=== PATIENT | female | born 1955 | race Caucasian/White ===

== ENCOUNTER 2020-11-21 08:41 | Outpatient (CLI) | payer OTHER, SELFPAY ==
[2020-11-21 09:56] LABS: Basophils Percent Auto 0.7 % (0.2-1.2); Eosinophils Absolute Auto 0.1 K/mm3 (0-0.3); Eosinophils Percent Auto 2.3 % (0-4.4); Hematocrit 38.4 % (37.0-47.0); Hemoglobin 12.4 g/dL (12.0-15.0); Immature Granulocyte Absolute 0.02 K/mm3 (0.00-0.031); Immature Granulocyte Percent A 0.4 % (0-0.5); Lymphocytes Absolute Auto 1.12 K/mm3 (0.9-3.2); Lymphocytes Percent Auto 19.8 % (18.3-44.2); Mean Corpuscular HGB Conc 32.3 g/dl (32-36); Mean Corpuscular Hemoglobin 33.2 pg (26-34); Mean Corpuscular Volume 102.9 fl (80-100); Mean Platelet Volume 10.4 fl (7.4-10.4); Monocytes Absolute Auto 0.5 K/mm3 (0.1-0.6); Monocytes Percent Auto 9.2 % (2.6-8.5); Neutrophils Absolute Auto 3.8 K/mm3 (1.3-6.7); Neutrophils Percent Auto 67.6 % (45.5-73.1); Platelet Count Result 216 k/mm3 (150-375); Red Blood Count 3.73 M/mm3 (4.2-5.4); Red Cell Distribution Width 13.2 % (11.5-14.5); White Blood Count 5.7 K/mm3 (4.5-10.0)
[2020-11-21 10:08] LABS: Hemoglobin A1C 6.6 % (<5.7)
[2020-11-21 10:20] LABS: Creatinine Urine 151.4 mg/dL
[2020-11-21 10:24] LABS: MALB Creatinine Ratio 16.4 mg/g (0-30); Microalbumin Urine Random 24.8 mg/L (0-16.7)
[2020-11-21 10:28] LABS: Alanine Aminotransferase 16 U/L (4-35); Albumin Level 4.1 g/dL (3.5-5.1); Alkaline Phosphatase 94 U/L (38-126); Anion Gap 7 mmol/L (8-16); Aspartate Amino Transferase 24 U/L (14-36); Bilirubin,Total 0.7 mg/dL (0.2-1.3); Blood Urea Nitrogen 15 mg/dL (7-17); Calcium 9.3 mg/dL (8.4-10.2); Carbon Dioxide 27 mmol/L (22-30); Chloride 102 mmol/L (98-107); Cholesterol 184 mg/dL (0-200); Estimated Glomerular Filt Rate > 60; Glucose 134 mg/dL (65-110); HDL Direct 50 mg/dL; Potassium 4.5 mmol/L (3.4-5.0); Sodium 136 mmol/L (137-145); Triglycerides 161 mg/dL (<150)
[2020-11-21 10:38] LABS: LDL Cholesterol Direct 98 mg/dL
[2020-11-21 10:57] LABS: Thyroid Stimulating Hormone 0.734 uIU/mL (0.465-4.680)
[2020-11-21 10:59] LABS: Immature Reticulocyte Fraction 14.7 % (3.0-15.9); Reticulocyte Hemoglobin Conten 38.8 pg (28.2-35.7); Reticulocyte Percent 1.97 % (0.7-4.3); Reticulocytes Absolute 0.07 B/L (32.2-175.7)
[2020-11-21 11:11] LABS: Thyroid Stimulating Hormone Reflex 0.757 uIU/mL (0.465-4.68)
[2020-11-21 15:37] LABS: Folic Acid 9.8 ng/mL (2.76->20)
[2020-11-26 20:48] LABS: Vitamin D 1,25 (OH)2 Total 45 pg/mL (18-72); Vitamin D2 1,25 (OH)2 <8 pg/mL; Vitamin D3 1,25 (OH)2 45 pg/mL
== END 2020-11-21 08:42 | disposition home or self-care (01) ==
PROVIDERS: PCP Family Medicine; Referring Provider Psychiatry & Neurology Psychiatry; Visit Provider Family Medicine
DX: R53.82 Chronic fatigue, unspecified (principal); F32.9 Major depressive disorder, single episode, unspecified; F41.0 Panic disorder [episodic paroxysmal anxiety]; E78.2 Mixed hyperlipidemia; E11.9 Type 2 diabetes mellitus without complications; R79.89 Other specified abnormal findings of blood chemistry; F51.04 Psychophysiologic insomnia; G25.81 Restless legs syndrome
CPT/HCPCS: 36415; 80053; 80061; 82043; 82607; 82652; 82746; 83036; 84443; 85025; 85046

== ENCOUNTER 2020-12-15 15:20 | Emergency (ER) | payer OTHER, SELFPAY ==
[2020-12-15 15:27] VITALS: BP 162/98; PULSE 108; RESP 18; TEMP 36.4; O2SAT 97
--- NOTE | 2020-12-15 16:16 | PC.NURSE ---
Pt states she is leaving and I dont want to waste anyones time. Pt told that is not the case and that she is welcome to stay and be seen by the EDP. Pt states she has a psychiatrist appointment tomorrow and will see and eye doctor instead. Pt ambulatory out of ER.
== END 2020-12-16 04:25 | disposition left against medical advice (07) ==
DX: Z94.7 Corneal transplant status (principal)
CPT/HCPCS: 99199

== ENCOUNTER 2021-01-06 12:00 | Outpatient (CLI) | payer OTHER, SELFPAY ==
[2021-01-06 13:06] LABS: Alanine Aminotransferase 15 U/L (4-35); Albumin Level 4.7 g/dL (3.5-5.1); Alkaline Phosphatase 82 U/L (38-126); Anion Gap 11 mmol/L (8-16); Aspartate Amino Transferase 23 U/L (14-36); Bilirubin,Total 0.7 mg/dL (0.2-1.3); Blood Urea Nitrogen 15 mg/dL (7-17); Calcium 9.2 mg/dL (8.4-10.2); Carbon Dioxide 24 mmol/L (22-30); Chloride 106 mmol/L (98-107); Estimated Glomerular Filt Rate 55; Glucose 178 mg/dL (65-110); Potassium 4.4 mmol/L (3.4-5.0); Sodium 141 mmol/L (137-145)
[2021-01-06 14:13] LABS: Hemoglobin A1C 6.6 % (<5.7)
== END 2021-01-06 12:01 | disposition home or self-care (01) ==
DX: E11.9 Type 2 diabetes mellitus without complications (principal)
CPT/HCPCS: 36415; 80053; 83036

== ENCOUNTER 2021-01-07 12:06 | Outpatient (CLI) | payer OTHER, SELFPAY ==
[2021-01-07 13:39] LABS: Creatinine Urine 151.6 mg/dL
[2021-01-07 13:44] LABS: MALB Creatinine Ratio 5.7 mg/g (0-30); Microalbumin Urine Random 8.7 mg/L (0-16.7)
== END 2021-01-07 12:07 | disposition home or self-care (01) ==
LOC: ANHLAB 12:08
DX: E11.9 Type 2 diabetes mellitus without complications (principal)
CPT/HCPCS: 82043

== ENCOUNTER 2021-02-23 06:12 | Emergency (ER) | payer OTHER, SELFPAY ==
[2021-02-23] VITALS (12 sets, daily range): BP systolic 131–148; BP diastolic 70–89; PULSE 92–105; RESP 15–24; TEMP 36.7; O2SAT 93–100
--- NOTE | ~2021-02-23 | XR_ITS ---
EXAMINATION: XR chest 1V portable DATE: 02/23/2021 07:40 INDICATION: Shortness of breath, wheezing and sense of panic. TECHNIQUE: frontal view of the chest was obtained. COMPARISON: None FINDINGS: The lungs are clear with no focal airspace opacities, pulmonary edema, pleural effusion or pneumothor ax. Eventration along the left and right sides of the diaphragm. The cardiomediastinal silhouette is normal. IMPRESSION: 1. No acute cardiopulmonary disease. Reviewed, dictated and finalized at location A. [employer]
--- NOTE | 2021-02-23 07:18 | PC.NURSE ---
Report to ODESSA Torres, to continue care.
--- NOTE | 2021-02-23 07:35 | PC.NURSE ---
Patient refusing ABG at this time. Patient states she needs the Ativan prior to any blood draw.
--- NOTE | 2021-02-23 07:37 | ED.ANXIETY ---
HPI - Anxiety General Chief Complaint: Anxiety Stated Complaint: sob - feels like an asthma attack Time Seen by Provider: 02/23/21 07:26 Source: patient, EMS and RN notes reviewed History of Present Illness HPI narrative: Patient presents to the ED by ambulance because of anxiety, lack of sleep, restlessness started over the last few days. Patient lives alone, tremendous amount of stress lately. Patient denies any suicidal or homicidal ideation, patient denies any chest pain, headache, back pain or abdominal pain. Patient feeling shortness of breath, does not get better on albuterol treatment. Related Data Home Medications Medication Instructions Recorded Confirmed acetaminophen 650 mg 650 mg PO Q12H 11/06/20 11/06/20 tablet,extended release brimonidine 0.1 % eye drops 1 drp EACH EYE Q8H 11/06/20 11/06/20 metoprolol tartrate 25 mg tablet 25 mg PO DAILY 11/06/20 11/06/20 mirtazapine 15 mg tablet 15 mg PO DAILY 11/06/20 11/06/20 netarsudil 0.02 % eye drops 1 drp EACH EYE QPM 11/06/20 11/06/20 prednisolone acetate 1 % eye 1 drp EACH EYE Q12H 11/06/20 11/06/20 drops,suspension sodium chloride 2 % eye drops 1 drp EACH EYE DAILY 11/06/20 11/06/20 vitamin B complex 1 tablet PO DAILY 11/06/20 11/06/20 buspirone mg 02/23/21 desvenlafaxine succinate mg PO 02/23/21 Allergies Allergy/AdvReac Type Severity Reaction Status Date / Time bupropion [From Wellbutrin] Allergy Intermediate seizures Verified 02/23/21 06:36 esomeprazole [From Nexium] Allergy Intermediate hives on Verified 02/23/21 06:36 abdominal area Penicillins Allergy Intermediate itchy Verified 02/23/21 06:36 hands and feet Sulfa (Sulfonamide Allergy Intermediate swollen Verified 02/23/21 06:36 Antibiotics) lips Corticosteroids AdvReac Intermediate manic Verified 02/23/21 07:29 (Glucocorticoids) Review of Systems Review of Systems: CONSTITUTIONAL: Denies fever, chills, or sweats. EYES: Denies visual changes, redness, or discharge. ENT: Denies rhinorrhea, congestion, sore throat, or otalgia. CARDIOVASCULAR: Denies chest pain, palpitations, or edema. RESPIRATORY: Denies cough or dyspnea. GASTROINTESTINAL: Denies abdominal pain, nausea, vomiting, or diarrhea. GENITOURINARY: Denies dysuria or hematuria. SKIN: Denies rash or itching. MUSCULOSKELETAL: Denies back pain, joint pain, or myalgia. NEUROLOGIC: Denies headache, numbness, or weakness. PSYCHIATRIC: Denies anxiety or depression. [facility] Past Medical History Medical History Asthma Atrial fibrillation with controlled ventricular rate Benign essential HTN Chronic anticoagulation Chronic fatigue Chronic insomnia Diabetes mellitus Morbid obesity Panic anxiety syndrome Family History Family History Other Diabetes mellitus Heart disease Hypertension Social History Social History Social History: Smoking status: Never smoker Second hand tobacco smoke exposure: No Alcohol intake: never Substance use: never Substance use type: does not use and prescription drug Gender identity (if verbalized by the patient): Female Exam Narrative: General appearance: Well-developed, well-nourished, anxious, restless, in tears Skin: Normal color Head: Normocephalic, nontraumatic Eyes: Clear conjunctiva ENT: Oropharynx normal, ears normal, nose normal Neck: Supple, nontender Chest and respiratory: Airway patent, no respiratory distress, no accessory muscle use Heart: Regular rate/rhythm Abdomen: Soft, nontender, no organomegaly, quiet bowel sounds Vascular: Normal peripheral pulses, normal capillary refill. Musculoskeletal: Normal range of motion, nontender back Neurologic: Alert and oriented ?3, [employer] is normal as tested, no gross motor deficit
[2021-02-23] MEDS: LORazepam (*CRX) 0.5 MG TABLET 1 MG PO (07:43)
--- NOTE | 2021-02-23 07:48 | PCRCNOTE ---
pt refused to get ABG drawn
[2021-02-23 08:04] LABS: Basophils Percent Auto 0.4 % (0.2-1.2); Eosinophils Absolute Auto 0.2 K/mm3 (0-0.3); Eosinophils Percent Auto 2.1 % (0-4.4); Hematocrit 36.5 % (37.0-47.0); Hemoglobin 12.2 g/dL (12.0-15.0); Immature Granulocyte Absolute 0.04 K/mm3 (0.00-0.031); Immature Granulocyte Percent A 0.6 % (0-0.5); Lymphocytes Absolute Auto 1.21 K/mm3 (0.9-3.2); Lymphocytes Percent Auto 16.7 % (18.3-44.2); Mean Corpuscular HGB Conc 33.4 g/dl (32-36); Mean Corpuscular Hemoglobin 33.7 pg (26-34); Mean Corpuscular Volume 100.8 fl (80-100); Mean Platelet Volume 10.2 fl (7.4-10.4); Monocytes Absolute Auto 0.6 K/mm3 (0.1-0.6); Monocytes Percent Auto 8.4 % (2.6-8.5); Neutrophils Absolute Auto 5.2 K/mm3 (1.3-6.7); Neutrophils Percent Auto 71.8 % (45.5-73.1); Platelet Count Result 210 k/mm3 (150-375); Red Blood Count 3.62 M/mm3 (4.2-5.4); Red Cell Distribution Width 12.5 % (11.5-14.5); White Blood Count 7.3 K/mm3 (4.5-10.0)
[2021-02-23 08:16] LABS: Alanine Aminotransferase 16 U/L (4-35); Albumin Level 4.3 g/dL (3.5-5.1); Alkaline Phosphatase 101 U/L (38-126); Anion Gap 7 mmol/L (8-16); Aspartate Amino Transferase 22 U/L (14-36); Bilirubin,Total 0.6 mg/dL (0.2-1.3); Blood Urea Nitrogen 12 mg/dL (7-17); Calcium 9.8 mg/dL (8.4-10.2); Carbon Dioxide 27 mmol/L (22-30); Chloride 104 mmol/L (98-107); Estimated CRCL calculation 82 ml/min; Estimated Glomerular Filt Rate > 60; Glucose 148 mg/dL (65-110); Potassium 4.3 mmol/L (3.4-5.0); Sodium 138 mmol/L (137-145)
== END 2021-02-23 09:26 | disposition home or self-care (01) ==
PROVIDERS: Emergency Provider Emergency Medicine
DX: F41.0 Panic disorder [episodic paroxysmal anxiety] (principal); J45.909 Unspecified asthma, uncomplicated; I48.91 Unspecified atrial fibrillation; I10 Essential (primary) hypertension; R53.82 Chronic fatigue, unspecified; F51.04 Psychophysiologic insomnia; E11.9 Type 2 diabetes mellitus without complications; E66.01 Morbid (severe) obesity due to excess calories; Z68.41 Body mass index [BMI] 40.0-44.9, adult; Z79.01 Long term (current) use of anticoagulants
CPT/HCPCS: 36415; 36600; 71045; 80053; 85025; 99283; A9270

== ENCOUNTER 2021-03-15 09:20 | Emergency (ER) | payer OTHER, SELFPAY ==
[2021-03-15] VITALS (20 sets, daily range): BP systolic 105–187; BP diastolic 56–110; PULSE 84–101; RESP 13–25; TEMP 36.2–36.4; O2SAT 83–100
--- NOTE | 2021-03-15 11:17 | PC.NURSE ---
No answer when called for triage.
--- NOTE | 2021-03-15 15:02 | ED.GENADULT ---
HPI - General Adult General Chief complaint: Anxiety Stated complaint: anxiety/mood swings/refill Time Seen by Provider: 03/15/21 12:51 Source: patient Mode of arrival: ambulatory Limitations: no limitations History of Present Illness HPI narrative: Patient presents for evaluation of anxiety, depression, and temper tantrums . She indicates she moved to [facility] back in September of this year after her son relocated here. She states she was initially feeling quite well when she moved to the area. She established care with Dr Hunt and started doing TMS therapy. She states she was told she needed to discontinue her cymbalta which she did. She indicates that she has not done TMS for about one month. She was placed on pristiq. She states that caused chest pain so she discontinued its use about 4-5 days ago. She would like to restart cymbalta and is wondering whether it is safe to do so. It did help with her mood and also decreased pain she was experiencing in her knees. She reports getting angry when her phone does not work. She lives at home alone. She denies SI, HI, AH, VH. She states she is not speaking with Dr Hunt because he lectured her about writing poor reviews on his website. She thinks that the staff at his office are rude. She is also concerned that she is getting ready to run out of her buspar. Related Data Home Medications Medication Instructions Recorded Confirmed acetaminophen 650 mg 650 mg PO Q12H 11/06/20 11/06/20 tablet,extended release brimonidine 0.1 % eye drops 1 drp EACH EYE Q8H 11/06/20 11/06/20 metoprolol tartrate 25 mg tablet 25 mg PO DAILY 11/06/20 11/06/20 mirtazapine 15 mg tablet 15 mg PO DAILY 11/06/20 11/06/20 netarsudil 0.02 % eye drops 1 drp EACH EYE QPM 11/06/20 11/06/20 prednisolone acetate 1 % eye 1 drp EACH EYE Q12H 11/06/20 11/06/20 drops,suspension sodium chloride 2 % eye drops 1 drp EACH EYE DAILY 11/06/20 11/06/20 vitamin B complex 1 tablet PO DAILY 11/06/20 11/06/20 buspirone mg 02/23/21 desvenlafaxine succinate mg PO 02/23/21 Allergies Allergy/AdvReac Type Severity Reaction Status Date / Time bupropion [From Wellbutrin] Allergy Intermediate seizures Verified 03/15/21 13:03 esomeprazole [From Nexium] Allergy Intermediate hives on Verified 03/15/21 13:03 abdominal area Penicillins Allergy Intermediate itchy Verified 03/15/21 13:03 hands and feet Sulfa (Sulfonamide Allergy Intermediate swollen Verified 03/15/21 13:03 Antibiotics) lips Corticosteroids AdvReac Intermediate manic Verified 03/15/21 13:03 (Glucocorticoids) alfalfa AdvReac Vomiting Verified 03/15/21 13:03 Review of Systems Review of Systems: CONSTITUTIONAL: Denies fever, chills, or sweats. EYES: Denies visual changes, redness, or discharge. ENT: Denies rhinorrhea, congestion, sore throat, or otalgia. CARDIOVASCULAR: Denies chest pain, palpitations, or edema. RESPIRATORY: Denies cough or dyspnea. GASTROINTESTINAL: Denies abdominal pain, nausea, vomiting, or diarrhea. GENITOURINARY: Denies dysuria or hematuria. SKIN: Denies rash or itching. MUSCULOSKELETAL: Reports chronic bilateral knee pain. Denies back pain or myalgia. NEUROLOGIC: Denies headache, numbness, dizziness, or weakness. PSYCHIATRIC: Reports anxiety, depression, temper tantrums . Denies SI, HI, AH, VH [facility] Past Medical History Medical History (Updated 03/15/21 @ 16:04 by Alejo Freeman, RUKHSANA, ) Asthma Atrial fibrillation with controlled ventricular rate Benign essential HTN Chronic anticoagulation Chronic fatigue Chronic insomnia Diabetes mellitus Morbid obesity Panic anxiety syndrome Surgical History Surgical History No pertinent past surgical history Family History Family History Other Diabetes mellitus Heart disease Hypertension Social History Social History (Review
== END 2021-03-15 16:23 | disposition home or self-care (01) ==
PROVIDERS: Emergency Provider Nurse Practitioner
DX: F41.9 Anxiety disorder, unspecified (principal); J45.909 Unspecified asthma, uncomplicated; I48.91 Unspecified atrial fibrillation; R53.82 Chronic fatigue, unspecified; E11.9 Type 2 diabetes mellitus without complications; E66.01 Morbid (severe) obesity due to excess calories; Z68.41 Body mass index [BMI] 40.0-44.9, adult; Z79.01 Long term (current) use of anticoagulants
CPT/HCPCS: 99281

== ENCOUNTER 2021-03-17 09:52 | Emergency (ER) | payer OTHER, SELFPAY ==
[2021-03-17 10:05] VITALS: BP 134/68; PULSE 97; RESP 18; TEMP 36.7; O2SAT 99
--- NOTE | 2021-03-17 10:28 | ED.GENADULT ---
HPI - General Adult General Chief complaint: Skin/Abscess/Foreign Body Stated complaint: pos skin abcess Source: patient Mode of arrival: ambulatory Limitations: no limitations History of Present Illness HPI narrative: Patient is a 65-year-old female who presents to the [facility] via POV for evaluation of a skin problem located on right pubis that she noticed last night. She reports the area is swollen, tender, erythematous, fluctuant, and draining a small amount of bloody matter . Denies taking or using OTC meds. Nothing improves symptoms. Tenderness increases with touch and pressure. She states she noticed it increasing in size prompting today's visit. Related Data Home Medications Medication Instructions Recorded Confirmed acetaminophen 650 mg 650 mg PO Q12H 11/06/20 11/06/20 tablet,extended release brimonidine 0.1 % eye drops 1 drp EACH EYE Q8H 11/06/20 11/06/20 metoprolol tartrate 25 mg tablet 25 mg PO DAILY 11/06/20 11/06/20 mirtazapine 15 mg tablet 15 mg PO DAILY 11/06/20 11/06/20 netarsudil 0.02 % eye drops 1 drp EACH EYE QPM 11/06/20 11/06/20 prednisolone acetate 1 % eye 1 drp EACH EYE Q12H 11/06/20 11/06/20 drops,suspension sodium chloride 2 % eye drops 1 drp EACH EYE DAILY 11/06/20 11/06/20 vitamin B complex 1 tablet PO DAILY 11/06/20 11/06/20 buspirone mg 02/23/21 desvenlafaxine succinate mg PO 02/23/21 Allergies Allergy/AdvReac Type Severity Reaction Status Date / Time bupropion [From Wellbutrin] Allergy Intermediate seizures Verified 03/17/21 10:19 esomeprazole [From Nexium] Allergy Intermediate hives on Verified 03/17/21 10:19 abdominal area Penicillins Allergy Intermediate itchy Verified 03/17/21 10:19 hands and feet Sulfa (Sulfonamide Allergy Intermediate swollen Verified 03/17/21 10:19 Antibiotics) lips Corticosteroids AdvReac Intermediate manic Verified 03/17/21 10:19 (Glucocorticoids) alfalfa AdvReac Vomiting Verified 03/17/21 10:19 Review of Systems Review of Systems: Denies injury. Pertinent negatives fever, chills, sweats, malaise, poor p.o. intake, change in appetite, headache, LOC, dizziness, streaking, drainage, numbness, tingling, loss of sensation, foreign body sensation, deformity, sob, chest pain, and heart palpitations/murmurs. [facility], [facility] Past Medical History Medical History Asthma Atrial fibrillation with controlled ventricular rate Benign essential HTN Chronic anticoagulation Chronic fatigue Chronic insomnia Diabetes mellitus Morbid obesity Panic anxiety syndrome Surgical History Surgical History No pertinent past surgical history Family History Family History Other Diabetes mellitus Heart disease Hypertension Social History Social History Social History: Smoking status: Never smoker Second hand tobacco smoke exposure: No Alcohol intake: never Substance use: never Substance use type: does not use Gender identity (if verbalized by the patient): Female Sexual Orientation (if Verbalized by the Patient): Straight or Heterosexual Spiritual care concerns: No Comments I have reviewed and agree with the patient's past medical, surgical, social, and family hx as documented by the RN. There is no relevant family history pertinent to the presenting complaint. Exam Narrative: GENERAL: Well-appearing, well-nourished, and in no acute distress. HEAD: Normocephalic, atraumatic. No facial swelling appreciated. EYES: PERRLA and EOMI. No evidence of erythema, swelling, or drainage. ENT: Nares clear, no rhinorrhea or epistaxis.Mucous membranes moist and pink. Uvula is midline without erythema and swelling. No evidence of obstruction, petechial rash, cobblestoning, lesions, ulcers
== END 2021-03-17 10:45 | disposition home or self-care (01) ==
PROVIDERS: Emergency Provider Nurse Practitioner Family
DX: L03.818 Cellulitis of other sites (principal); J45.909 Unspecified asthma, uncomplicated; I48.91 Unspecified atrial fibrillation; I10 Essential (primary) hypertension; Z79.01 Long term (current) use of anticoagulants; E11.9 Type 2 diabetes mellitus without complications; E66.01 Morbid (severe) obesity due to excess calories; Z68.41 Body mass index [BMI] 40.0-44.9, adult
CPT/HCPCS: 99213; G0463

== ENCOUNTER 2021-03-23 11:23 | Emergency (ER) | payer OTHER, SELFPAY ==
[2021-03-23 11:27] VITALS: BP 165/104; PULSE 89; RESP 18; TEMP 37.1; O2SAT 98
--- NOTE | 2021-03-23 13:18 | PC.NURSE ---
Pt called out stating she was unable to get up out of her chair, and needed to use the RR. RN to pt's room to help. Pt was able to get up with minimal assistance from RN and ambulated with her walker independently to RR. Did not need any additional assistance in the RR, and ambulated back to room with her walker. Pt aware of plan for discharge with Rx and referral to ortho. Son remains with patient.
--- NOTE | 2021-03-23 13:50 | ED.GENADULT ---
HPI - General Adult General Chief complaint: Weakness Stated complaint: weakness Time Seen by Provider: 03/23/21 11:56 Source: patient Mode of arrival: ambulatory Limitations: no limitations History of Present Illness HPI narrative: Patient is a 65-year-old female with history of extensive osteoarthritis in her knees presented with chief complaint of acute exacerbation of her chronic knee pain after driving for prolonged period of time. Patient denies pain in the calf or in the thigh. Patient presents emergency department wanting a steroid injection into the knee to assist with ambulation. Patient reports that she has severe pain in the right knee upon standing and trying to ambulate. Patient reports the pain is causing her to feel unsteady. She reports she uses a Rollator for ambulation support. Related Data Home Medications Medication Instructions Recorded Confirmed acetaminophen 650 mg 650 mg PO Q12H 11/06/20 11/06/20 tablet,extended release brimonidine 0.1 % eye drops 1 drp EACH EYE Q8H 11/06/20 11/06/20 metoprolol tartrate 25 mg tablet 25 mg PO DAILY 11/06/20 11/06/20 mirtazapine 15 mg tablet 15 mg PO DAILY 11/06/20 11/06/20 netarsudil 0.02 % eye drops 1 drp EACH EYE QPM 11/06/20 11/06/20 prednisolone acetate 1 % eye 1 drp EACH EYE Q12H 11/06/20 11/06/20 drops,suspension sodium chloride 2 % eye drops 1 drp EACH EYE DAILY 11/06/20 11/06/20 vitamin B complex 1 tablet PO DAILY 11/06/20 11/06/20 buspirone mg 02/23/21 desvenlafaxine succinate mg PO 02/23/21 Allergies Allergy/AdvReac Type Severity Reaction Status Date / Time bupropion [From Wellbutrin] Allergy Intermediate seizures Verified 03/17/21 10:19 esomeprazole [From Nexium] Allergy Intermediate hives on Verified 03/17/21 10:19 abdominal area Penicillins Allergy Intermediate itchy Verified 03/17/21 10:19 hands and feet Sulfa (Sulfonamide Allergy Intermediate swollen Verified 03/17/21 10:19 Antibiotics) lips Corticosteroids AdvReac Intermediate manic Verified 03/17/21 10:19 (Glucocorticoids) alfalfa AdvReac Vomiting Verified 12/21/21 10:19 Review of Systems Review of Systems: CONSTITUTIONAL: Denies fever, chills, or sweats. EYES: Denies visual changes, redness, or discharge. ENT: Denies rhinorrhea, congestion, sore throat, or otalgia. CARDIOVASCULAR: Denies chest pain, palpitations, or edema. RESPIRATORY: Denies cough or dyspnea. GASTROINTESTINAL: Denies abdominal pain, nausea, vomiting, or diarrhea. GENITOURINARY: Denies dysuria or hematuria. SKIN: Denies rash or itching. MUSCULOSKELETAL: Reports right knee pain denies back pain, joint pain, or myalgia. NEUROLOGIC: Denies headache, numbness, dizziness, or weakness. PSYCHIATRIC: Denies anxiety or depression. [facility] Past Medical History Medical History Asthma Atrial fibrillation with controlled ventricular rate Benign essential HTN Chronic anticoagulation Chronic fatigue Chronic insomnia Diabetes mellitus Morbid obesity Panic anxiety syndrome Surgical History Surgical History No pertinent past surgical history Family History Family History Other Diabetes mellitus Heart disease Hypertension Social History Social History Social History: Smoking status: Never smoker Second hand tobacco smoke exposure: No Alcohol intake: never Substance use: never Substance use type: does not use Gender identity (if verbalized by the patient): Female Sexual Orientation (if Verbalized by the Patient): Straight or Heterosexual Spiritual care concerns: No Exam Narrative: GENERAL: Well-appearing, well-nourished. Morbidly obese and tearful. HEAD: Normocephalic, atraumatic. EYES: PERRLA and EOMI. EXTREMITIES: No erythem
== END 2021-03-23 14:18 | disposition home or self-care (01) ==
PROVIDERS: Emergency Provider Emergency Medicine
DX: M25.561 Pain in right knee (principal); R53.1 Weakness; M17.0 Bilateral primary osteoarthritis of knee; I48.91 Unspecified atrial fibrillation; I10 Essential (primary) hypertension; E11.9 Type 2 diabetes mellitus without complications; J45.909 Unspecified asthma, uncomplicated; F41.8 Other specified anxiety disorders; E66.01 Morbid (severe) obesity due to excess calories; Z68.41 Body mass index [BMI] 40.0-44.9, adult; Z79.01 Long term (current) use of anticoagulants
CPT/HCPCS: 99283

== ENCOUNTER 2021-04-09 09:57 | Emergency (ER) | payer OTHER, SELFPAY ==
[2021-04-09 10:09] VITALS: BP 140/100; PULSE 104; RESP 20; TEMP 36.7; O2SAT 100
--- NOTE | 2021-04-09 10:26 | ED.PSYCH ---
HPI - Psych General Chief Complaint: Psychiatric Symptoms Stated Complaint: depression, SI Time Seen by Provider: 04/09/21 10:08 Source: patient Mode of arrival: EMS Limitations: no limitations History of Present Illness HPI Narrative: Patient is a 65-year-old female here because she ran out of her pain medication and anxiety medication, now she is having hard time sleeping due to pain, feeling depressed and anxious, admits to punching her arms because she states that she gets mad at herself but denies any suicidal thoughts, that's against my nondenominational and I do not want to go to hell . Patient states that she has a history of arthritis causing constant bilateral lower extremity pain. Patient states that she takes hydrocodone for her pain but ran out a week ago. Patient denies any homicidal ideations. Patient also states that she is close to running out of her other psych meds, venlafaxine, aripiprazole, and clonazepam. Patient states that she fired her psychiatrist 2 weeks ago because he accused her of being dramatic and lying. Related Data Home Medications Medication Instructions Recorded Confirmed acetaminophen 650 mg 650 mg PO Q12H 11/06/20 11/06/20 tablet,extended release brimonidine 0.1 % eye drops 1 drp EACH EYE Q8H 11/06/20 11/06/20 metoprolol tartrate 25 mg tablet 25 mg PO DAILY 11/06/20 11/06/20 mirtazapine 15 mg tablet 15 mg PO DAILY 11/06/20 11/06/20 netarsudil 0.02 % eye drops 1 drp EACH EYE QPM 11/06/20 11/06/20 prednisolone acetate 1 % eye 1 drp EACH EYE Q12H 11/06/20 11/06/20 drops,suspension sodium chloride 2 % eye drops 1 drp EACH EYE DAILY 11/06/20 11/06/20 vitamin B complex 1 tablet PO DAILY 11/06/20 11/06/20 buspirone mg 02/23/21 desvenlafaxine succinate mg PO 02/23/21 Allergies Allergy/AdvReac Type Severity Reaction Status Date / Time bupropion [From Wellbutrin] Allergy Intermediate seizures Verified 04/09/21 10:14 esomeprazole [From Nexium] Allergy Intermediate hives on Verified 04/09/21 10:14 abdominal area Penicillins Allergy Intermediate itchy Verified 04/09/21 10:14 hands and feet Sulfa (Sulfonamide Allergy Intermediate swollen Verified 04/09/21 10:14 Antibiotics) lips Corticosteroids AdvReac Intermediate manic Verified 04/09/21 10:14 (Glucocorticoids) alfalfa AdvReac Vomiting Verified 04/09/21 10:14 Review of Systems Review of Systems: All systems reviewed & are unremarkable except as noted in HPI and below Constitutional: Constitutional: Denies body ache(s), Denies chills, Denies excessive sweating, Denies fatigue, Denies fever(s), Denies headache(s), Denies lethargy, Denies malaise, Denies weakness and Denies weight loss Eyes: Eyes: Denies blurry vision, Denies change in vision and Denies loss of vision ENT: Denies dizziness, Denies ear discharge, Denies headache(s), Denies lip swelling, Denies epistaxis, Denies nasal congestion, Denies neck pain, Denies throat swelling and Denies tongue swelling Cardiovascular: Cardiovascular: Denies chest pain, Denies chest pain at rest, Denies chest pain with activity, Denies diaphoresis, Denies rapid heart rate, Denies edema, Denies irregular heart rhythm, Denies lightheadedness, Denies palpitations, Denies dyspnea and Denies dyspnea on exertion Respiratory: Respiratory: Denies chest congestion, Denies cough, Denies hemoptysis, Denies dyspnea and Denies dyspnea on exertion Gastrointestinal: Gastrointestinal: Denies abdominal pain, Denies melena, Denies hematochezia, Denies diarrhea, Denies nausea, Denies vomiting and Denies hematemesis Musculoskeletal: Musculoskeletal: Denies abnormal gait, Denies deformity, Denies joint swelling, Denies limited range of motion, Denies neck pain and Denies numbness Neurologic: Denies Abnormal speech present, Denies abnormal gait, Denies confusion, Denies dizziness, Denies headache(s), Denies focal weakness, Denies loss of vision, Denies numbness, Denies Other visual disturbances, Denies Sen
--- NOTE | 2021-04-09 10:37 | PC.NURSE ---
Pt. does not have a sitter at bedside due to pt. being LOW RISK on [place] Suicide Risk Assessment. Charge Nurse Yvrose made aware and agrees w/ decision.
[2021-04-09 10:40] LABS: Basophils Absolute Auto 0.1 K/mm3 (0.0-0.1); Basophils Percent Auto 0.8 % (0.2-1.2); Eosinophils Percent Auto 0.5 % (0-4.4); Hematocrit 43.5 % (37.0-47.0); Hemoglobin 14.5 g/dL (12.0-15.0); Immature Granulocyte Absolute 0.02 K/mm3 (0.00-0.031); Immature Granulocyte Percent A 0.3 % (0-0.5); Lymphocytes Absolute Auto 1.29 K/mm3 (0.9-3.2); Lymphocytes Percent Auto 17.1 % (18.3-44.2); Mean Corpuscular HGB Conc 33.3 g/dl (32-36); Mean Corpuscular Hemoglobin 33.3 pg (26-34); Mean Platelet Volume 9.8 fl (7.4-10.4); Monocytes Absolute Auto 0.6 K/mm3 (0.1-0.6); Monocytes Percent Auto 8.5 % (2.6-8.5); Neutrophils Absolute Auto 5.5 K/mm3 (1.3-6.7); Neutrophils Percent Auto 72.8 % (45.5-73.1); Platelet Count Result 286 k/mm3 (150-375); Red Blood Count 4.35 M/mm3 (4.2-5.4); Red Cell Distribution Width 12.8 % (11.5-14.5); White Blood Count 7.5 K/mm3 (4.5-10.0)
[2021-04-09 10:53] LABS: Add Urine Microscopic? YES; Appearance Urine Clear (Clear); Bilirubin Urine Negative (Negative); Blood Urine Negative (Negative); Color Urine Yellow (Yellow); Glucose Urine UA Negative (Negative); Ketones Urine Negative (Negative); Leukocyte Esterase Ur Trace LEU/UL (Negative); Nitrate Urine Negative (Negative); Protein Urine Negative (Negative); RBC Urine 0-2 /hpf (0-2); Specific Grav Ur 1.015 (1.001-1.035); Squamous Epithelial Cell Urine Few /hpf (Few); Urobilinogen Urine Negative mg/dL (<2.0); WBC Urine 0-3 /hpf
[2021-04-09 10:54] LABS: Acetaminophen < 10 ug/mL (10-30); Salicylate < 1.0 mg/dL (2-20)
[2021-04-09 10:55] LABS: Alanine Aminotransferase 19 U/L (4-35); Albumin Level 4.8 g/dL (3.5-5.1); Alkaline Phosphatase 115 U/L (38-126); Anion Gap 13 mmol/L (8-16); Aspartate Amino Transferase 26 U/L (14-36); Bilirubin,Total 0.9 mg/dL (0.2-1.3); Blood Urea Nitrogen 17 mg/dL (7-17); Calcium 10.2 mg/dL (8.4-10.2); Carbon Dioxide 24 mmol/L (22-30); Chloride 95 mmol/L (98-107); Estimated CRCL calculation 72 ml/min; Estimated Glomerular Filt Rate > 60; Glucose 147 mg/dL (65-110); Potassium 4.3 mmol/L (3.4-5.0); Sodium 132 mmol/L (137-145)
[2021-04-09 10:56] LABS: Amphetamine Screen Urine Negative (Negative); Barbiturate Screen Urine Negative (Negative); Benzodiazepines Screen Urine Negative (Negative); Cannabinoid Screen Urine Positive (Negative); Cocaine Screen Urine Negative (Negative); Ethanol < 10 mg/dL (<10); Methadone Screen Urine Negative (Negative); Opiate Screen Urine Negative (Negative); Phencyclidine Screen Urine Negative (Negative)
[2021-04-09 11:26] LABS: Thyroid Stimulating Hormone 0.811 uIU/mL (0.465-4.680)
[2021-04-09] MEDS: HYDROcodone/acetaminophen (*CRX) 5-325 MG TABLET 1 TAB PO (11:26)
--- NOTE | 2021-04-09 12:30 | PC.NURSE ---
PT. cleared by stephany and pt. to be discharged home on a safety contract.
[2021-04-09 12:50] VITALS: BP 145/88; PULSE 88; RESP 19; O2SAT 97
== END 2021-04-09 13:00 | disposition home or self-care (01) ==
PROVIDERS: Emergency Provider Emergency Medicine; PCP Physician Assistant
DX: F41.9 Anxiety disorder, unspecified (principal); F32.A Depression, unspecified; G89.29 Other chronic pain; M17.0 Bilateral primary osteoarthritis of knee; J45.909 Unspecified asthma, uncomplicated; I48.91 Unspecified atrial fibrillation; I10 Essential (primary) hypertension; E11.9 Type 2 diabetes mellitus without complications; E66.01 Morbid (severe) obesity due to excess calories; Z68.41 Body mass index [BMI] 40.0-44.9, adult; Z79.01 Long term (current) use of anticoagulants
CPT/HCPCS: 36415; 80053; 80307; 81001; 84443; 85025; 99284; A9270

== ENCOUNTER 2021-04-09 14:46 | Outpatient (CLI) | payer OTHER, SELFPAY ==
[2021-04-09 15:20] LABS: Basophils Absolute Auto 0.1 K/mm3 (0.0-0.1); Basophils Percent Auto 0.8 % (0.2-1.2); Eosinophils Percent Auto 0.4 % (0-4.4); Hematocrit 39.9 % (37.0-47.0); Hemoglobin 13.6 g/dL (12.0-15.0); Immature Granulocyte Absolute 0.02 K/mm3 (0.00-0.031); Immature Granulocyte Percent A 0.3 % (0-0.5); Lymphocytes Absolute Auto 1.31 K/mm3 (0.9-3.2); Lymphocytes Percent Auto 17.4 % (18.3-44.2); Mean Corpuscular HGB Conc 34.1 g/dl (32-36); Mean Corpuscular Hemoglobin 33.3 pg (26-34); Mean Corpuscular Volume 97.8 fl (80-100); Mean Platelet Volume 9.8 fl (7.4-10.4); Monocytes Absolute Auto 0.5 K/mm3 (0.1-0.6); Neutrophils Absolute Auto 5.6 K/mm3 (1.3-6.7); Neutrophils Percent Auto 74.1 % (45.5-73.1); Platelet Count Result 305 k/mm3 (150-375); Red Blood Count 4.08 M/mm3 (4.2-5.4); Red Cell Distribution Width 12.8 % (11.5-14.5); White Blood Count 7.5 K/mm3 (4.5-10.0)
[2021-04-09 16:03] LABS: Creatinine Urine 217.7 mg/dL
[2021-04-09 16:09] LABS: MALB Creatinine Ratio 21.3 mg/g (0-30); Microalbumin Urine Random 46.4 mg/L (0-16.7)
[2021-04-09 16:22] LABS: Vitamin D 25 Hydroxy 62.6 ng/mL
[2021-04-09 17:26] LABS: Alanine Aminotransferase 21 U/L (4-35); Albumin Level 4.6 g/dL (3.5-5.1); Alkaline Phosphatase 97 U/L (38-126); Anion Gap 11 mmol/L (8-16); Aspartate Amino Transferase 26 U/L (14-36); Bilirubin,Total 0.7 mg/dL (0.2-1.3); Blood Urea Nitrogen 15 mg/dL (7-17); Calcium 9.9 mg/dL (8.4-10.2); Carbon Dioxide 24 mmol/L (22-30); Chloride 97 mmol/L (98-107); Cholesterol 159 mg/dL (0-200); Estimated Glomerular Filt Rate 55; Glucose 215 mg/dL (65-110); HDL Direct 53 mg/dL; Potassium 3.9 mmol/L (3.4-5.0); Sodium 132 mmol/L (137-145); Triglycerides 138 mg/dL (<150)
[2021-04-09 17:37] LABS: LDL Cholesterol Direct 75 mg/dL
[2021-04-09 17:57] LABS: Thyroid Stimulating Hormone 0.791 uIU/mL (0.465-4.680)
== END 2021-04-09 14:47 | disposition home or self-care (01) ==
LOC: ANHLAB 14:51
PROVIDERS: PCP Physician Assistant; Visit Provider Physician Assistant
DX: E78.5 Hyperlipidemia, unspecified (principal); I10 Essential (primary) hypertension; E11.65 Type 2 diabetes mellitus with hyperglycemia; E55.9 Vitamin D deficiency, unspecified
CPT/HCPCS: 36415; 80053; 80061; 80307; 81001; 82043; 82306; 82607; 83036; 84443; 85025; 99284; A9270

== ENCOUNTER 2021-04-18 10:16 | Emergency (ER) | payer OTHER, SELFPAY ==
[2021-04-18 10:45] VITALS: BP 134/71; PULSE 94; RESP 20; TEMP 37.1; O2SAT 99
--- NOTE | 2021-04-18 10:45 | ED.DENTAL ---
HPI - Dental/Oral General Chief complaint: Dental/Oral Stated complaint: Canker sore in mouth Time Seen by Provider: 04/18/21 10:45 Source: patient Mode of arrival: ambulatory Limitations: no limitations History of Present Illness HPI Narrative: 65-year-old female presents to the [facility] with right upper lip sore. States been there for about a week. Had seen her primary care provider who told her it was a canker sore. States that her lip feels more swollen. States it is getting better but she just wanted someone else to look at it. Denies any redness. Has been applying baking soda Complaint: tooth pain Related Data Home Medications Medication Instructions Recorded Confirmed acetaminophen 650 mg 650 mg PO Q12H 11/06/20 04/18/21 tablet,extended release brimonidine 0.1 % eye drops 1 drp EACH EYE Q8H 11/06/20 04/18/21 metoprolol tartrate 25 mg tablet 25 mg PO DAILY 11/06/20 04/18/21 mirtazapine 15 mg tablet 15 mg PO DAILY 11/06/20 04/18/21 netarsudil 0.02 % eye drops 1 drp EACH EYE QPM 11/06/20 04/18/21 prednisolone acetate 1 % eye 1 drp EACH EYE Q12H 11/06/20 04/18/21 drops,suspension sodium chloride 2 % eye drops 1 drp EACH EYE DAILY 11/06/20 04/18/21 vitamin B complex 1 tablet PO DAILY 11/06/20 04/18/21 buspirone 5 mg PO DAILY 02/23/21 04/18/21 desvenlafaxine succinate 50 mg PO DIRECTED 02/23/21 04/18/21 Allergies Allergy/AdvReac Type Severity Reaction Status Date / Time bupropion [From Wellbutrin] Allergy Intermediate seizures Verified 04/18/21 10:50 esomeprazole [From Nexium] Allergy Intermediate hives on Verified 04/18/21 10:50 abdominal area Penicillins Allergy Intermediate itchy Verified 04/18/21 10:50 hands and feet Sulfa (Sulfonamide Allergy Intermediate swollen Verified 04/18/21 10:50 Antibiotics) lips Corticosteroids AdvReac Intermediate manic Verified 04/18/21 10:50 (Glucocorticoids) alfalfa AdvReac Vomiting Verified 04/18/21 10:50 Review of Systems Review of Systems: All systems reviewed & are unremarkable except as noted in HPI and below Constitutional: Constitutional: Reports no additional constitutional complaints, Denies chills and Denies fever(s) Eyes: Eyes: Reports no additional eye complaints ENT: Reports as per HPI Comments: Upper lip pain Cardiovascular: Cardiovascular: Reports no additional cardiovascular complaints, Denies chest pain and Denies dyspnea Respiratory: Respiratory: Reports no additional respiratory complaints, Denies cough and Denies dyspnea Gastrointestinal: Gastrointestinal: Reports no additional gastrointestinal complaints, Denies abdominal pain, Denies nausea and Denies vomiting Musculoskeletal: Musculoskeletal: Reports no additional musculoskeletal complaints Integumentary/Breasts: Skin/Breast: Reports system reviewed and no additional complaints, except as docu Neurologic: Reports system reviewed and no additional complaints, except as documented Psychiatric: Psychiatric: Reports no additional psychiatric complaints Allergic/Immunologic: Allergic/Immunologic: Reports no additional allergic/immunologic complaints PMFSH Past Medical History Medical History Asthma Atrial fibrillation with controlled ventricular rate Benign essential HTN Chronic anticoagulation Chronic fatigue Chronic insomnia Diabetes mellitus Morbid obesity Panic anxiety syndrome Surgical History Surgical History No pertinent past surgical history Family History Family History Other Diabetes mellitus Heart disease Hypertension Social History Social History Social History: Smoking status: Never smoker Second hand tobacco smoke exposure: No Alcohol intake: never Substance use: never Substance use type: does not use
== END 2021-04-18 10:56 | disposition home or self-care (01) ==
PROVIDERS: Emergency Provider Nurse Practitioner; PCP Physician Assistant
DX: K12.0 Recurrent oral aphthae (principal); J45.909 Unspecified asthma, uncomplicated; I48.91 Unspecified atrial fibrillation; I10 Essential (primary) hypertension; E11.9 Type 2 diabetes mellitus without complications; E66.01 Morbid (severe) obesity due to excess calories; Z68.41 Body mass index [BMI] 40.0-44.9, adult
CPT/HCPCS: 99213; G0463

== ENCOUNTER 2021-04-20 11:32 | Emergency (ER) | payer OTHER, SELFPAY ==
[2021-04-20 11:45] VITALS: BP 145/69; PULSE 103; RESP 16; TEMP 37.1; O2SAT 98
--- NOTE | 2021-04-20 11:55 | ED.GENADULT ---
HPI - General Adult General Chief complaint: Allergic Reaction Stated complaint: Alergic Reaction Time Seen by Provider: 04/20/21 12:00 Source: patient, RN notes reviewed and old records reviewed Mode of arrival: ambulatory Limitations: no limitations History of Present Illness HPI narrative: 65-year-old female presents to the [facility] crying and stating that she is having a adverse reaction with periabdominal flushing patient states she has been very anxious. Is very tearful. Denies any pain. States that my cord feels very hot. Patient reports that she tried calling the doctor that did the injections but they hung up on her and will not talk to her. Had tried calling primary but states they will return her call. Denies taking any medication today. States she took her anxiety medication yesterday and felt much better. Patient states that she had knee injections on , 4 days ago and her symptoms started 2 days ago Onset (ago): day(s) (2) Related Data Home Medications Medication Instructions Recorded Confirmed acetaminophen 650 mg 650 mg PO Q12H 11/06/20 04/20/21 tablet,extended release brimonidine 0.1 % eye drops 1 drp EACH EYE Q8H 11/06/20 04/20/21 metoprolol tartrate 25 mg tablet 25 mg PO DAILY 11/06/20 04/20/21 mirtazapine 15 mg tablet 15 mg PO DAILY 11/06/20 04/20/21 netarsudil 0.02 % eye drops 1 drp EACH EYE QPM 11/06/20 04/20/21 prednisolone acetate 1 % eye 1 drp EACH EYE Q12H 11/06/20 04/20/21 drops,suspension sodium chloride 2 % eye drops 1 drp EACH EYE DAILY 11/06/20 04/20/21 vitamin B complex 1 tablet PO DAILY 11/06/20 04/20/21 buspirone 5 mg PO DAILY 02/23/21 04/20/21 desvenlafaxine succinate 50 mg PO DIRECTED 02/23/21 04/20/21 Allergies Allergy/AdvReac Type Severity Reaction Status Date / Time bupropion [From Wellbutrin] Allergy Intermediate seizures Verified 04/20/21 12:20 esomeprazole [From Nexium] Allergy Intermediate hives on Verified 04/20/21 12:20 abdominal area Penicillins Allergy Intermediate itchy Verified 04/20/21 12:20 hands and feet Sulfa (Sulfonamide Allergy Intermediate swollen Verified 04/20/21 12:20 Antibiotics) lips Corticosteroids AdvReac Intermediate manic Verified 04/20/21 12:20 (Glucocorticoids) alfalfa AdvReac Vomiting Verified 04/20/21 12:20 Review of Systems Review of Systems: All systems reviewed & are unremarkable except as noted in HPI and below Constitutional: Constitutional: Reports no additional constitutional complaints, Denies chills and Denies fever(s) Eyes: Eyes: Reports no additional eye complaints ENT: Reports system reviewed and no additional complaints, except as documented Cardiovascular: Cardiovascular: Reports no additional cardiovascular complaints and Denies chest pain Respiratory: Respiratory: Reports no additional respiratory complaints, Denies cough and Denies dyspnea Gastrointestinal: Gastrointestinal: Reports no additional gastrointestinal complaints, Denies abdominal pain, Denies nausea and Denies vomiting Musculoskeletal: Musculoskeletal: Reports no additional musculoskeletal complaints Integumentary/Breasts: Skin/Breast: Reports system reviewed and no additional complaints, except as docu Neurologic: Reports system reviewed and no additional complaints, except as documented, Denies vertigo, Denies dizziness, Denies syncope, Denies headache(s) and Denies weakness Psychiatric: Psychiatric: Reports as per HPI, Reports anxiety, Reports irritability, Denies homicidal ideation and Denies suicidal ideation Allergic/Immunologic: Allergic/Immunologic: Reports no additional allergic/immunologic complaints PMFSH Past Medical History Medical History Asthma Atrial fibrillation with controlled ventricular rate Benign essential HTN Chronic anticoagulation Chronic fatigue Chronic insomnia Diabetes mellitus Morbid obesity Panic anxiety syndrome Surgica
== END 2021-04-20 12:40 | disposition home or self-care (01) ==
PROVIDERS: Emergency Provider Nurse Practitioner; PCP Physician Assistant
DX: F41.9 Anxiety disorder, unspecified (principal); N39.0 Urinary tract infection, site not specified; J45.909 Unspecified asthma, uncomplicated; I48.91 Unspecified atrial fibrillation; Z79.82 Long term (current) use of aspirin; E11.9 Type 2 diabetes mellitus without complications; E66.01 Morbid (severe) obesity due to excess calories; Z68.36 Body mass index [BMI] 36.0-36.9, adult
CPT/HCPCS: 81003; 87086; 99213; G0463

== ENCOUNTER 2021-04-20 17:22 | Emergency (ER) | payer OTHER, SELFPAY ==
[2021-04-20 17:25] VITALS: BP 150/96; PULSE 100; RESP 18; TEMP 36.2; O2SAT 100
[2021-04-20 20:41] VITALS: BP 132/88; PULSE 98; TEMP 36.5; O2SAT 100
--- NOTE | 2021-04-20 21:49 | PC.NURSE ---
Pt states she no longer would like to be seen by provider. Pt reports she has called a ride to take her home.
--- NOTE | 2021-04-20 21:55 | PC.NURSE ---
Pt ambulates out of ED to vehicle with steady gait.
--- NOTE | 2021-04-20 22:21 | PC.NURSE ---
Pt ambulatory to waiting vehicle. will remove from triage list.
== END 2021-04-20 22:00 | disposition left against medical advice (07) ==
LOC: ANHED 22:09
PROVIDERS: PCP Physician Assistant
DX: R41.0 Disorientation, unspecified (principal)
CPT/HCPCS: 99199

== ENCOUNTER 2021-05-03 09:23 | Emergency (ER) | payer OTHER, SELFPAY ==
[2021-05-03 09:38] VITALS: BP 148/86; PULSE 98; RESP 18; TEMP 36.7; O2SAT 100
--- NOTE | 2021-05-03 09:39 | ED.SKABFB ---
HPI - Skin/Abscess/Foreign Bdy General Chief complaint: Wound/Laceration Stated complaint: Lesion on pubic area Time Seen by Provider: 05/03/21 09:41 Source: patient, RN notes reviewed and old records reviewed Mode of arrival: ambulatory (with cane) Limitations: no limitations History of Present Illness HPI narrative: 65 yo female presents to the [facility] with complaints of lesion to my pubis. Patient states for the last 5 to 6 days it developed first as an ingrown hair and now has become red, warm and was draining reddish to rust color stuff. Denies fevers. Denies abdominal pain or chest pain. No shortness of breath. Has been cleaning it with soapy water. Related Data Home Medications Medication Instructions Recorded Confirmed acetaminophen 650 mg 650 mg PO Q12H 11/06/20 05/03/21 tablet,extended release brimonidine 0.1 % eye drops 1 drp EACH EYE Q8H 11/06/20 05/03/21 metoprolol tartrate 25 mg tablet 25 mg PO DAILY 11/06/20 05/03/21 mirtazapine 15 mg tablet 15 mg PO DAILY 11/06/20 05/03/21 netarsudil 0.02 % eye drops 1 drp EACH EYE QPM 11/06/20 05/03/21 prednisolone acetate 1 % eye 1 drp EACH EYE Q12H 11/06/20 05/03/21 drops,suspension sodium chloride 2 % eye drops 1 drp EACH EYE DAILY 11/06/20 05/03/21 vitamin B complex 1 tablet PO DAILY 11/06/20 05/03/21 buspirone 5 mg PO DAILY 02/23/21 05/03/21 desvenlafaxine succinate 50 mg PO DIRECTED 02/23/21 05/03/21 Allergies Allergy/AdvReac Type Severity Reaction Status Date / Time bupropion [From Wellbutrin] Allergy Intermediate seizures Verified 04/20/21 12:20 esomeprazole [From Nexium] Allergy Intermediate hives on Verified 04/20/21 12:20 abdominal area Penicillins Allergy Intermediate itchy Verified 04/20/21 12:20 hands and feet Sulfa (Sulfonamide Allergy Intermediate swollen Verified 04/20/21 12:20 Antibiotics) lips Corticosteroids AdvReac Intermediate manic Verified 04/20/21 12:20 (Glucocorticoids) alfalfa AdvReac Vomiting Verified 04/20/21 12:20 Review of Systems Review of Systems: All systems reviewed & are unremarkable except as noted in HPI and below Constitutional: Constitutional: Reports no additional constitutional complaints, Denies chills and Denies fever(s) Eyes: Eyes: Reports no additional eye complaints ENT: Reports system reviewed and no additional complaints, except as documented Cardiovascular: Cardiovascular: Reports no additional cardiovascular complaints, Denies chest pain and Denies dyspnea Respiratory: Respiratory: Reports no additional respiratory complaints, Denies cough and Denies dyspnea Gastrointestinal: Gastrointestinal: Reports no additional gastrointestinal complaints, Denies abdominal pain, Denies nausea and Denies vomiting Musculoskeletal: Musculoskeletal: Reports no additional musculoskeletal complaints Integumentary/Breasts: Skin/Breast: Reports as per HPI, Reports swelling and Reports sores Neurologic: Reports system reviewed and no additional complaints, except as documented Psychiatric: Psychiatric: Reports no additional psychiatric complaints Allergic/Immunologic: Allergic/Immunologic: Reports no additional allergic/immunologic complaints PMFSH Past Medical History Medical History Asthma Atrial fibrillation with controlled ventricular rate Benign essential HTN Chronic anticoagulation Chronic fatigue Chronic insomnia Diabetes mellitus Morbid obesity Panic anxiety syndrome Surgical History Surgical History No pertinent past surgical history Family History Family History Other Diabetes mellitus Heart disease Hypertension Social History Social History Social History: Smoking status: Never smoker Second hand tobacco smoke exposure: No Alcohol intake: never
== END 2021-05-03 09:58 | disposition home or self-care (01) ==
PROVIDERS: Emergency Provider Nurse Practitioner; PCP Physician Assistant
DX: L03.314 Cellulitis of groin (principal); J45.909 Unspecified asthma, uncomplicated; I48.91 Unspecified atrial fibrillation; I10 Essential (primary) hypertension; Z79.01 Long term (current) use of anticoagulants; E11.9 Type 2 diabetes mellitus without complications; E66.01 Morbid (severe) obesity due to excess calories; Z68.39 Body mass index [BMI] 39.0-39.9, adult; F41.9 Anxiety disorder, unspecified; F41.0 Panic disorder [episodic paroxysmal anxiety]
CPT/HCPCS: 99213; G0463

== ENCOUNTER 2021-05-27 09:56 | Outpatient (CLI) | payer OTHER, SELFPAY ==
--- NOTE | ~2021-05-27 | US_ITS ---
US abdomen complete EXAMINATION: US Abdomen Complete INDICATION: Abdominal pain PROCEDURE: Realtime High Resolution abdomen ultrasound. COMPARISON: No prior studies for comparison FINDINGS: Gallbladder is surgically absent. Common bile duct measures 7 mm. Liver echotexture within normal limits without focal mass. Pancreas within normal limits. Pancreati c tail is obscured by bowel gas. Spleen is unremarkeable. Renal echotexture is within normal limits bilaterally without hydronephrosis, contour deforming mass or renal stone. Right kidney measures 10.8 cm. Left kidney measures 10.7 cm. Visualized aspects of the aorta and IVC are within normal limits. Portal vein is patent. No sonograph ic Wolf's sign indicated by the technologist. IMPRESSION: 1: Unremarkable abdominal ultrasound. Reviewed, dictated and finalized at location A. UNTING SYSTEMS MANAGER
== END 2021-05-27 09:57 | disposition home or self-care (01) ==
PROVIDERS: PCP Physician Assistant; Visit Provider Physician Assistant
DX: R10.9 Unspecified abdominal pain (principal)
CPT/HCPCS: 76700

== ENCOUNTER 2021-06-03 14:30 | Observation (INO) | payer OTHER, SELFPAY ==
[2021-06-03] VITALS (13 sets, daily range): BP systolic 95–145; BP diastolic 47–80; PULSE 83–94; RESP 13–24; TEMP 36.4–36.8; O2SAT 96–100; BMI 38.3; BMI 38.2
--- NOTE | ~2021-06-03 | XR_ITS ---
EXAMINATION: XR chest 2V DATE: 06/03/2021 15:24 INDICATION: Left-sided chest pain TECHNIQUE: AP and lateral views of the chest are obtained. COMPARISON: 02/23/2021 FINDINGS: The lungs are free of acute opacities. There is no pleural effusion or pneumothorax. The ca rdiomediastinal silhouette is normal. There is moderate thoracic spondylosis. IMPRESSION: 1. No acute cardiopulmonary abnormality. Reviewed, dictated and finalized at location B. COMMUNICATOR SUPERVISOR
--- NOTE | 2021-06-03 14:56 | ECG_ITS ---
Measurements Intervals [place] Rate: 79 P: ME: 0 QRS: -2 QRSD: 84 T: 26 QT: 384 QTc: 440 Interpretive Statements ATRIAL FIBRILLATION MODERATE VOLTAGE CRITERIA FOR LVH, CONSIDER NORMAL VARIANT [MEETS CRITERIA IN ONE OF: R(aVL), S(V1), R(V5), R(V5/V6)+S(V1)] NONSPECIFIC T-WAVE ABNORMALITY ABNORMAL ECG NO PREVIOUS ECG AVAILABLE FOR COMPARISON Electronically Signed On 06-03-2021 16:44:44 TREND INVESTIGATOR by Yohannes Nam M.D.
--- NOTE | 2021-06-03 15:31 | ED.CHESTPAIN ---
HPI - Chest Pain General Chief Complaint: Chest Pain Stated Complaint: chest pain Time Seen by Provider: 06/03/21 15:19 Source: patient Mode of arrival: ambulatory Limitations: no limitations History of Present Illness HPI narrative: Patient is a six 5-year-old female complaining of chest pain, left chest, tightness, 6 out of 10, currently denies any pain, nonradiating accompanied by occasional shortness of breath worse with exertion and laying down started 2 days ago. Patient denies any abdominal pain, nausea, vomiting, diaphoresis, fever or chills. Related Data Home Medications Medication Instructions Recorded Confirmed acetaminophen 650 mg 650 mg PO Q12H 11/06/20 05/03/21 tablet,extended release brimonidine 0.1 % eye drops 1 drp EACH EYE Q8H 11/06/20 05/03/21 vitamin B complex 1 tablet PO DAILY 11/06/20 05/03/21 buspirone 5 mg PO DAILY 02/23/21 05/03/21 apixaban [Eliquis] mg 06/03/21 brimonidine drp 06/03/21 brimonidine drp 06/03/21 clonazepam 06/03/21 duloxetine mg PO 06/03/21 metoprolol tartrate 06/03/21 ropinirole mg 06/03/21 sitagliptin [Januvia] mg 06/03/21 Allergies Allergy/AdvReac Type Severity Reaction Status Date / Time bupropion [From Wellbutrin] Allergy Intermediate seizures Verified 06/03/21 15:45 esomeprazole [From Nexium] Allergy Intermediate hives on Verified 06/03/21 15:45 abdominal area Penicillins Allergy Intermediate itchy Verified 06/03/21 15:45 hands and feet Sulfa (Sulfonamide Allergy Intermediate swollen Verified 06/03/21 15:45 Antibiotics) lips Corticosteroids AdvReac Intermediate manic Verified 06/03/21 15:45 (Glucocorticoids) alfalfa AdvReac Vomiting Verified 06/03/21 15:45 Review of Systems Review of Systems: All systems reviewed & are unremarkable except as noted in HPI and below Constitutional: Constitutional: Denies body ache(s), Denies chills, Denies excessive sweating, Denies fatigue, Denies fever(s), Denies headache(s), Denies lethargy, Denies malaise, Denies weakness and Denies weight loss Eyes: Eyes: Denies blurry vision, Denies change in vision and Denies loss of vision ENT: Denies dizziness, Denies ear discharge, Denies headache(s), Denies lip swelling, Denies epistaxis, Denies nasal congestion, Denies neck pain, Denies throat swelling and Denies tongue swelling Cardiovascular: Cardiovascular: Denies diaphoresis, Denies rapid heart rate, Denies edema, Denies irregular heart rhythm, Denies lightheadedness, Denies palpitations, Denies dyspnea and Denies dyspnea on exertion Respiratory: Respiratory: Denies chest congestion, Denies cough, Denies hemoptysis, Denies dyspnea and Denies dyspnea on exertion Gastrointestinal: Gastrointestinal: Denies abdominal pain, Denies melena, Denies hematochezia, Denies diarrhea, Denies nausea, Denies vomiting and Denies hematemesis Musculoskeletal: Musculoskeletal: Denies abnormal gait, Denies deformity, Denies joint swelling, Denies limited range of motion, Denies neck pain and Denies numbness Neurologic: Denies Abnormal speech present, Denies abnormal gait, Denies confusion, Denies dizziness, Denies headache(s), Denies focal weakness, Denies loss of vision, Denies numbness, Denies Other visual disturbances, Denies Sensory deficit (Neuro) and Denies weakness Psychiatric: Psychiatric: Denies confusion, Denies depression, Denies auditory hallucinations, Denies homicidal ideation and Denies suicidal ideation Endocrine: Endocrine: Denies cold intolerance, Denies excessive sweating, Denies fatigue, Denies heat intolerance and Denies palpitations Hematologic/Lymphatic: Hematologic/Lymphatic: Denies easy bleeding and Denies easy bruising Allergic/Immunologic: Allergic/Immunologic: Denies lip swelling, Denies throat swelling and Denies tongue swelling PMFSH Past Medical History Medical History Asthma Atrial fibrillation with controlled ventricular rate Benign
[2021-06-03 15:43] LABS: Basophils Absolute Auto 0.1 K/mm3 (0.0-0.1); Basophils Percent Auto 0.6 % (0.2-1.2); Eosinophils Absolute Auto 0.1 K/mm3 (0-0.3); Eosinophils Percent Auto 1.4 % (0-4.4); Hematocrit 42.2 % (37.0-47.0); Hemoglobin 13.7 g/dL (12.0-15.0); Immature Granulocyte Absolute 0.03 K/mm3 (0.00-0.031); Immature Granulocyte Percent A 0.4 % (0-0.5); Lymphocytes Absolute Auto 1.35 K/mm3 (0.9-3.2); Lymphocytes Percent Auto 17.2 % (18.3-44.2); Mean Corpuscular HGB Conc 32.5 g/dl (32-36); Mean Corpuscular Hemoglobin 33.4 pg (26-34); Mean Corpuscular Volume 102.9 fl (80-100); Mean Platelet Volume 10.4 fl (7.4-10.4); Monocytes Absolute Auto 0.7 K/mm3 (0.1-0.6); Monocytes Percent Auto 8.3 % (2.6-8.5); Neutrophils Absolute Auto 5.6 K/mm3 (1.3-6.7); Neutrophils Percent Auto 72.1 % (45.5-73.1); Platelet Count Result 253 k/mm3 (150-375); Red Cell Distribution Width 13.6 % (11.5-14.5); White Blood Count 7.8 K/mm3 (4.5-10.0)
[2021-06-03 15:46] LABS: Potassium 4.4 mmol/L (3.4-5.0)
[2021-06-03 15:47] LABS: INR 1.1; Partial Thromboplastin Time 26.3 SECONDS (22.3-36.8); Prothrombin Time 14.2 Seconds (11.1-14.7)
[2021-06-03 15:57] LABS: Troponin I < 0.012 ng/mL (0.000-0.034)
[2021-06-03 16:05] LABS: Alanine Aminotransferase 13 U/L (4-35); Albumin Level 4.6 g/dL (3.5-5.1); Alkaline Phosphatase 107 U/L (38-126); Anion Gap 8 mmol/L (8-16); Aspartate Amino Transferase 21 U/L (14-36); Bilirubin,Total 0.6 mg/dL (0.2-1.3); Blood Urea Nitrogen 14 mg/dL (7-17); Calcium 9.7 mg/dL (8.4-10.2); Carbon Dioxide 27 mmol/L (22-30); Chloride 102 mmol/L (98-107); Estimated CRCL calculation 81 ml/min; Estimated Glomerular Filt Rate > 60; Glucose 114 mg/dL (65-110); Lipase 89 U/L (23-300); Sodium 137 mmol/L (137-145)
[2021-06-03 16:24] LABS: NT Pro B Type Natriuretic Pept 1390 pg/mL (5-100)
[2021-06-03] MEDS: ASPIRIN 81 MG CHEWABLE TABLET 324 MG PO (16:41)
--- NOTE | 2021-06-03 17:00 | PM.IMHP ---
H&P: HPI History of Present Illness Date/Time: 06/03/21 17:00 Chief Complaint: Chest pain. Narrative: This is a 65-year-old female with persistent atrial fibrillation on chronic anticoagulation, hypertension, coronary artery disease, type 2 diabetes mellitus, bipolar disorder, depression, anxiety, and history of left breast and uterine cancer presented to the emergency department via EMS from her doctor's office for evaluation of chest pain. She had an appointment with her doctor today given ongoing pain in her hips and knees from arthritis. She mentioned that she had been having intermittent episodes of chest pain for 3 to 4 days and a subsequent EKG reportedly showed ?T-wave abnormalities? and she was directed to the emergency department. She describes intermittent left anterior, upper chest pain that she describes as aching in nature. It does not radiate and seems to be self-limiting. At times she feels short of breath with the discomfort but not always. It seems to be worse at nighttime when lying down and she gives no alleviating factors. She has attributed the pain due to an increase in stress in her life recently. It is my understanding that she her son have been looking for assisted living facilities for the patient and this has caused her some stress. She also tells me that her bipolar disorder has been controlled for many years however she thinks it is causing her grief once again and this is causing stress as well. She has no significant discomfort at the time my evaluation in her chest but does complain of her arthritis pain in her legs. She has not noticed exertional chest pain or shortness of breath. She denies orthopnea, paroxysmal nocturnal dyspnea, and significant lower extremity edema. She has not had nausea, vomiting, or sweats. No syncope or near syncope. She denies abdominal and epigastric pain and her symptoms are not similar to any GI symptoms she has had in the past. No recent heavy lifting or new exercise regimen. The pain is not reproducible on palpation. Review of Systems Review of Systems: Twelve systems were reviewed. No cold or flu symptoms. No fever, chills, or sweats. She denies nausea, vomiting, and diarrhea. She endorses mild dysuria and urgency and has had some incontinence. She goes on to say that this is not necessarily unusual for her, however. No saddle anesthesia, lower extremity paresthesias, or focal weakness. Except as documented, all other systems were reviewed and are negative. [facility] Past Medical History Medical History (Updated 06/03/21 @ 22:37 by Kesha Ceballos PA-C) Asthma Benign essential HTN Bipolar disorder Cancer of left breast Status post lumpectomy and radiation. Chronic anticoagulation Chronic fatigue Chronic insomnia Diabetes mellitus Endometrial cancer Glaucoma Morbid obesity Osteoarthritis Panic anxiety syndrome Persistent atrial fibrillation Restless leg syndrome Surgical History Surgical History (Updated 06/03/21 @ 22:10 by Kesha Ceballos PA-C) History of appendectomy History of cardiac radiofrequency ablation History of cholecystectomy History of lumpectomy of left breast History of tonsillectomy History of total hysterectomy with bilateral salpingo-oophorectomy (BSO) Family History Family History Other Diabetes mellitus Heart disease Hypertension Social History Social History (Updated 06/03/21 @ 22:11 by Kesha Ceballos PA-C) Social History: Surrogate decision maker: Evin Bartlett, son. Code status: Full code. Smoking status: Never smoker Second hand tobacco smoke exposure: No Alcohol intake: never Substance use: former Substance use type: marijuana Other substance usage details: Gummies taken for pain. Living arrangements: alone Additional living arrangements comments: The patient is and lives in [place] with her cat, Lizbet. She has one son. Occupation/Education
[2021-06-03 18:52] LABS: Troponin I < 0.012 ng/mL (0.000-0.034)
--- NOTE | 2021-06-03 18:58 | PC.NURSE ---
This patient, Slime Bartlett, was received from ED on 06/03/21 at 1830. Patient/family oriented to unit policies and routines.Denies any discomfort at present. Admits to feeling depressed.
[2021-06-03 20:19] LABS: Glucose Point of Care 106 mg/dl (65-105)
[2021-06-03 21:41] LABS: Troponin I < 0.012 ng/mL (0.000-0.034)
[2021-06-03] MEDS: METOPROLOL TARTRATE 12.5 MG TABLET PO (22:43)
[2021-06-03] MEDS: rOPINIRole HCL 0.5 MG TABLET PO (22:43)
[2021-06-03] MEDS: BRIMONIDINE TARTRATE 0.2% OP SOLN 5 ML BTL 1 DROP LEFT EYE (22:44)
[2021-06-03] MEDS: clonazePAM (*CRX) 0.5 MG TABLET PO (22:44)
[2021-06-03] MEDS: ACETAMINOPHEN 325 MG TABLET 650 MG PO (22:44)
[2021-06-03] MEDS: LATANOPROST 0.005% OP SOLN 2.5 ML BTL 1 DROP EACH EYE (22:44)
[2021-06-04] VITALS (19 sets, daily range): BP systolic 107–140; BP diastolic 42–85; PULSE 79–103; RESP 16–20; TEMP 35.8–36.7; O2SAT 98–100
[2021-06-04 04:50] LABS: LDL Cholesterol Direct 78 mg/dL
[2021-06-04 04:58] LABS: Anion Gap 5 mmol/L (8-16); Blood Urea Nitrogen 14 mg/dL (7-17); Calcium 8.9 mg/dL (8.4-10.2); Carbon Dioxide 30 mmol/L (22-30); Chloride 102 mmol/L (98-107); Cholesterol 147 mg/dL (0-200); Estimated CRCL calculation 89 ml/min; Estimated Glomerular Filt Rate > 60; Glucose 116 mg/dL (65-110); HDL Direct 39 mg/dL; Magnesium 1.9 mg/dL (1.6-2.3); Sodium 137 mmol/L (137-145); Triglycerides 113 mg/dL (<150)
[2021-06-04] MEDS: ACETAMINOPHEN 325 MG TABLET 650 MG PO ×3 (05:15→21:18)
[2021-06-04 05:18] LABS: Potassium 3.9 mmol/L (3.4-5.0)
[2021-06-04 05:32] LABS: Hemoglobin A1C 6.5 % (<5.7)
[2021-06-04 05:47] LABS: Thyroid Stimulating Hormone Reflex 0.887 uIU/mL (0.465-4.68)
[2021-06-04] MEDS: prednisoLONE ACETATE 1% OPHTH 5 ML 1 DROP RIGHT EYE (08:36)
[2021-06-04] MEDS: VITAMIN B COMPLEX CAPSULE 1 CAP PO (08:36)
[2021-06-04] MEDS: BRIMONIDINE TARTRATE 0.2% OP SOLN 5 ML BTL 1 DROP LEFT EYE ×2 (08:38→21:52)
[2021-06-04] MEDS: PANTOPRAZOLE 40 MG TABLET PO (08:39)
[2021-06-04] MEDS: FUROSEMIDE 20 MG TABLET PO (08:40)
[2021-06-04] MEDS: METOPROLOL TARTRATE 12.5 MG TABLET PO ×2 (08:40→21:17)
[2021-06-04] MEDS: DULoxetine HCL 60 MG CAPSULE.DR PO (08:41)
[2021-06-04] MEDS: APIXABAN 5 MG TABLET PO ×2 (08:41→21:17)
[2021-06-04 12:03] LABS: Glucose Point of Care 117 mg/dl (65-105)
[2021-06-04 16:35] LABS: Glucose Point of Care 114 mg/dl (65-105)
--- NOTE | 2021-06-04 18:25 | PM.IMPN ---
Progress Note: A&P Assessment and Plan (1) Chest pain: Code(s): R07.9 - Chest pain, unspecified Status: Acute (2) Persistent atrial fibrillation: Code(s): I48.19 - Other persistent atrial fibrillation Status: Acute (3) Chronic anticoagulation: Code(s): Z79.01 - long-term (current) use of anticoagulants Status: Acute (4) Diabetes mellitus: Qualifiers: Diabetes mellitus type: type 2 Diabetes mellitus care home insulin use: without salvage determiner use Diabetes mellitus complication status: without complication Qualified Code(s): E11.9 - Type 2 diabetes mellitus without complications Code(s): E11.9 - Type 2 diabetes mellitus without complications Status: Acute (5) Psychiatric illness: Code(s): F99 - Mental disorder, not otherwise specified Status: Acute Additional Plan The patient presented to the ER today for evaluation of intermittent chest pain over the last 3 to 4 days. It seems atypical for cardiac pain and she has rule out for acute coronary syndrome by serial troponins. Given her risk factors I was asked to admit her overnight for closer observation. Echocardiogram has been ordered for a.m. and if abnormal a cardiology consult would be appropriate. She is in persistent atrial fibrillation and is rate controlled. Continue apixaban for stroke prophylaxis. Random glucose today was 106. Continue sitagliptin and initiate sliding scale insulin, Accu-Cheks, and hypoglycemic protocol. The patient does suffer from depression and anxiety and reports a history of bipolar disorder, which she thinks may be causing her to have recent outbursts. This has put some stressors on her family situation. She is not having any harmful thoughts, however and we discussed the importance of following up with her doctor for possible therapist or psychiatric referral. 06/04/21 c/s cardiology to establish for management of chronic dz HTN , afib, no previous stress test performed, pt does not know of ever being told she has CAD cont current care dc after cardio eval Subjective Date/time seen: 06/04/21 18:25 pt denies any active chest pain and cannot tell me if she has ever had a cardiac cath or dx of CAD. She is diabetic Hypertensive obese w BMI of 38, and reports BROWNE w walking half of a block. She reports her activity is very limited by her severe OA. She is does report chest pain but only when lying on her L shoulder. Pt requests to see cardiology because would like to establish with someone closer to home. Will c/s cardio although her history is not very convincing she does have many risk factors and reduced physical capacity. Exam Narrative: GEN: NAD, AAOx3 cooperative HEENT: NCAT, MMM, EOMI Neck: no JVD Heart: IRR Lungs: no use of accessory muscles no distress Ext: moves all, no cyanosis, no clubbing Neuro: no focal neurological deficits appreciated, CN intact Psych: depressed mood w congruent affect Objective Data Vital Signs Vital Signs: Vital Signs - 24 hr 06/03/21 18:46 06/03/21 19:08 06/03/21 20:00 Temperature 98.3 F 98.3 F 97.8 F Pulse Rate 90 90 85 Respiratory Rate 20 20 18 Blood Pressure 145/79 H 145/79 H 143/77 H Pulse Oximetry 96 96 100 06/03/21 22:00 06/03/21 22:43 06/03/21 23:56 Temperature 97.6 F Pulse Rate 89 94 92 Respiratory Rate 18 Blood Pressure 131/80 Pulse Oximetry 97 06/04/21 00:00 06/04/21 02:00 06/04/21 04:00 Temperature 98.0 F Pulse Rate 89 87 79 Respiratory Rate 18 Blood Pressure 131/66 Pulse Oximetry 98 06/04/21 06:00 06/04/21 08:00 06/04/21 08:08 Temperature 96.4 F L Pulse Rate 82 98 97 Respiratory Rate 20 Blood Pressure 140/85 Pulse Oximetry 100 06/04/21 08:40 06/04/21 09:34 06/04/21 10:00 Temperature Pulse Rate 95 86 Respiratory Rate Blood Pressure Pulse Oximetry 100 06/04/21 11:45 06/04/21 12:00 06/04/21 14:00 Temperature 96.7 F L Pulse Rate 83 93 88 Respiratory
[2021-06-04] MEDS: clonazePAM (*CRX) 0.5 MG TABLET PO (21:17)
[2021-06-04] MEDS: rOPINIRole HCL 0.5 MG TABLET PO (21:17)
[2021-06-04] MEDS: LATANOPROST 0.005% OP SOLN 2.5 ML BTL 1 DROP EACH EYE (21:52)
--- NOTE | 2021-06-04 22:41 | ECHO_ITS ---
Patient Info Name: Slime Bartlett Age: 65 years : 1955 Gender: Female Ht: 67 in Wt: 251 lbs BSA: 2.37 m2 HR: 82 bpm BP: 131 / 66 mmHg Heart Rhythm: Atrial Fibrillation Technical Quality: Fair Exam Date: 06/04/2021 1:21 PM Exam Location: [facility] Room: 201 Patient Status: Outpatient Admit Date: 06/03/2021 Staff Ordering Physician: Kesha Ceballos PA-C Property Damage Claims Adjustor: Kaylee Melchor RDCS Attending Provider: Buddy Priec MD Referring Physician: Tucker VILLA; Exam Type: CA echo doppler color flow Study Info Indications - chest pain persistant afib Complete two-dimensional, color flow and Doppler transthoracic echocardiogram is performed. Summary 1. Complete two-dimensional, color flow and Doppler transthoracic echocardiogram is performed. 2. Left ventricular chamber dimension is normal. 3. Left ventricular systolic function is normal, estimated at 60-65%. 4. The left ventricular diastolic function is abnormal. 5. E/e' 10 is mildly elevated. 6. Atrial fibrillation. 7. Left atrial chamber dimension is severely enlarged. 8. Right atrial chamber dimension is mildly enlarged. 9. There is trace aortic valve regurgitation. 10. The mitral valve has mildly calcified annulus. 11. There is mild mitral valve regurgitation. 12. There is mild tricuspid valve regurgitation. 13. No pulmonary hypertension, estimated pulmonary arterial systolic pressure is 26 mmHg. Left Ventricle E/e' 10 is mildly elevated. Atrial fibrillation. Left ventricular chamber dimension is normal. Left ventricular systolic function is normal, estimated at 60-65%. The left ventricular diastolic function is abnormal. Right Ventricle Right ventricular chamber dimension is normal. Right ventricular systolic function is normal. Left Atria Left atrial chamber dimension is severely enlarged. Right Atria Right atrial chamber dimension is mildly enlarged. Aortic Valve The aortic valve is trileaflet. There is no aortic valve stenosis. There is trace aortic valve regurgitation. Pulmonic Valve There is no pulmonic regurgitation. Mitral Valve The mitral valve has mildly calcified annulus. There is no mitral valve stenosis. There is mild mitral valve regurgitation. Tricuspid Valve There is mild tricuspid valve regurgitation. No pulmonary hypertension, estimated pulmonary arterial systolic pressure is 26 mmHg. Pericardium/Pleural There is no pericardial effusion. Inferior Vena Cava Normal inferior vena cava with >50% collapse upon inspiration consistent with normal right atrial pressure, 5 mmHg. Aorta The aortic root size at the sinus of Valsalva is normal. Left Ventricular Outflow Tract Name Value Normal LVOT 2D LVOT Diameter 2.0 cm LVOT Doppler LVOT Peak Gradient 6 mmHg LVOT Mean Gradient 3 mmHg LVOT VTI 23 cm LVOT VTI/AV VTI Ratio 0.7 LVOT Stroke Volume 75 ml LVOT CO 16.3 l/min
[2021-06-05] VITALS (7 sets, daily range): BP systolic 117–123; BP diastolic 65; PULSE 9–101; RESP 16–20; TEMP 36.1; O2SAT 98–100
[2021-06-05 00:17] LABS: Glucose Point of Care 132 mg/dl (65-105)
[2021-06-05] MEDS: ACETAMINOPHEN 325 MG TABLET 650 MG PO (05:18)
--- NOTE | 2021-06-05 06:07 | PC.NURSE ---
patient is in room crying. stating that everything hurts. she was fine a little bit ago when tylenol was given. patient was stating that she is going home and wanted her iv out and telemetry off to take a shower.
[2021-06-05 06:29] LABS: Glucose Point of Care 116 mg/dl (65-105)
--- NOTE | 2021-06-05 06:44 | PC.NURSE ---
patient was in her restroom. it was quiet and wasn't sure she was in room. i asked her how her pain was and she stated that it was real bad. then she started to cry. i asked her why she was crying and she stated in a very angry deepened voice that she wanted to. i continued to ask her questions to see what was going on. she went from calm and answering questions calmly to a very deep angry voice, then crying. when asked what she takes for pain at home, she stated tylenol. but said that it isn't helping. she said that this hospital and the er doesn't treat pain. she said that she hasn't slept for days, but patient did sleep a little bit on and off during the night. she got angry and threw her cane down to the floor. i picked it up and continued to calm her the best i can. she stated that she is going home today whether we like it or not. i said, but you just said that you are in so much pain. she stated so what, i am going home. i told her to try to calm down, breakfast will be here soon. that seemed to relax her a bit.
[2021-06-05] MEDS: METOPROLOL TARTRATE 12.5 MG TABLET PO (08:48)
[2021-06-05] MEDS: PANTOPRAZOLE 40 MG TABLET PO (08:49)
[2021-06-05] MEDS: DULoxetine HCL 60 MG CAPSULE.DR PO (08:49)
[2021-06-05] MEDS: APIXABAN 5 MG TABLET PO (08:49)
[2021-06-05] MEDS: VITAMIN B COMPLEX CAPSULE 1 CAP PO (08:49)
[2021-06-05] MEDS: BRIMONIDINE TARTRATE 0.2% OP SOLN 5 ML BTL 1 DROP LEFT EYE (08:50)
[2021-06-05] MEDS: prednisoLONE ACETATE 1% OPHTH 5 ML 1 DROP RIGHT EYE (08:50)
--- NOTE | 2021-06-05 08:55 | PM.CNCAR ---
Assessment and Plan Additional Plan This is a 65-year-old lady with hypertension, obesity and chronic atrial fibrillation. She came into the hospital because of chest pain that is atypical of and not suggestive of myocardial ischemia. Acute coronary syndrome has been ruled out. Echocardiogram does not show any ischemic wall motion abnormalities. She is known to have chronic atrial fibrillation for about 12 years and is well rate controlled and anticoagulated. Because of her moving to this area from [place] about a year ago she wants to follow up in this community for her medical care. I will arrange for follow-up in our office regarding her atrial fibrillation but at this point there is no at further cardiac reason for her to remain in the hospital. Gonzalez Alarcon MD [facility] History of Present Illness History of Present Illness Consult date/time: 06/05/21 08:55 Consult reason: chest pain and atrial fibrillation Reason For Visit: Chest pain/atrial fib Narrative: This is a 65-year-old woman I am seeing at the request of the hospitalist this morning to become established with our practice for ongoing cardiovascular care because of her atrial fibrillation. The patient is unknown to me prior to this consultation. She was admitted to the hospital yesterday because of some chest pain. The chest pain she says awakened her from sleep yesterday morning she thinks she might have been having a bad dream. The pain went on for she thinks a few minutes and then resolved. It was relatively transient and has not recurred since then. Apparently her family became aware of this and brought her to the emergency room where she was evaluated and admitted to the hospital. Since admission acute coronary syndrome has been ruled out with serial negative troponin levels. When I came in to see her this morning she is sleeping flat in bed upon awakening seems a bit lethargic but otherwise in no distress and offers no active complaints. She is not known to have coronary artery disease. The patient is known to have chronic atrial fibrillation since 2009. She has been cared for by the Cardiology practice up in [facility] with [facility] cardiovascular consultants. At the time of her diagnosis there was significant effort to try to restore and maintain sinus rhythm including a couple of ablation procedures and and cardioversions. When that failed chronic atrial fibrillation and a rate control strategy with anticoagulation were chosen. This is been the case since then. She according to the chart takes metoprolol for heart rate control at a modest dosage and apixaban 5 mg b.i.d. for anticoagulation. The chart indicates she has a history of a psychiatric disorder some of the previous notes speak about bipolar disorder she also has a history of hypertension and a history of venous varicosities. Past surgical history is remarkable for cholecystectomy hysterectomy knee arthroscopy and laparoscopic salpingo oophorectomy. She is a lifelong nonsmoker. According to the notes the patient recently moved here last year from [facility] to live closer to family and is desiring physicians in this area we have been consulted to see her primarily to become established with our practice for ongoing longitudinal follow-up of her atrial fibrillation. An echocardiogram done yesterday during this admission demonstrates normal LV systolic function, significant atrial dilatation and no significant valvular lesions. Review of Systems Constitutional: Constitutional: Reports no additional constitutional complaints Eyes: Eyes: Reports no additional eye complaints ENT: Reports system reviewed and no additional complaints, except as documented Cardiovascular: Cardiovascular: Reports as per HPI Respiratory: Respiratory: Reports no additional respiratory complaints Gastrointestinal: Gastrointestinal: Reports no additional gastrointestinal complaints Musculoskeletal: Musculoskeletal
--- NOTE | 2021-06-05 10:51 | PM.DS ---
DS: Admitting Diagnosis Discharge Date 06/05/2021 Admitting Diagnosis (1) Chest pain: Code(s): R07.9 - Chest pain, unspecified Status: Acute (2) Persistent atrial fibrillation: Code(s): I48.19 - Other persistent atrial fibrillation Status: Acute (3) Chronic anticoagulation: Code(s): Z79.01 - [facility] (current) use of anticoagulants Status: Acute (4) Diabetes mellitus: Qualifiers: Diabetes mellitus type: type 2 Diabetes mellitus half-way insulin use: without half-way use Diabetes mellitus complication status: without complication Qualified Code(s): E11.9 - Type 2 diabetes mellitus without complications Code(s): E11.9 - Type 2 diabetes mellitus without complications Status: Acute (5) Psychiatric illness: Code(s): F99 - Mental disorder, not otherwise specified Status: Acute DS: Discharge Diagnosis Discharge Diagnosis (1) Chest pain: Code(s): R07.9 - Chest pain, unspecified Status: Acute Assessment and Plan: atypical (2) Psychiatric illness: Code(s): F99 - Mental disorder, not otherwise specified Status: Acute (3) Persistent atrial fibrillation: Code(s): I48.19 - Other persistent atrial fibrillation Status: Acute (4) Cellulitis: Qualifiers: Site of cellulitis: unspecified site Qualified Code(s): L03.90 - Cellulitis, unspecified Code(s): L03.90 - Cellulitis, unspecified Status: Acute (5) Chest pain in adult: Code(s): R07.9 - Chest pain, unspecified Status: Acute (6) Atrial fibrillation: Qualifiers: Atrial fibrillation type: unspecified Qualified Code(s): I48.91 - Unspecified atrial fibrillation Code(s): I48.91 - Unspecified atrial fibrillation Status: Acute (7) Knee pain: Code(s): M25.569 - Pain in unspecified knee Status: Acute (8) No pertinent past surgical history: Code(s): Z78.9 - Other specified health status Status: Acute (9) PTSD (post-traumatic stress disorder): Code(s): F43.10 - Post-traumatic stress disorder, unspecified Status: Acute (10) Chronic anticoagulation: Code(s): 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 Status: Acute (11) Postmenopausal: Code(s): Z78.0 - Asymptomatic menopausal state Status: Acute (12) Breast cancer screening: Code(s): Z12.39 - Encounter for other screening for malignant neoplasm of breast Status: Acute (13) Asthma: Qualifiers: Asthma severity: mild Asthma persistence: intermittent Asthma complication type: uncomplicated Qualified Code(s): J45.20 - Mild intermittent asthma, uncomplicated Code(s): J45.909 - Unspecified asthma, uncomplicated Status: Acute (14) Morbid obesity: Code(s): E66.01 - Morbid (severe) obesity due to excess calories Status: Acute (15) Diabetes mellitus: Qualifiers: Diabetes mellitus type: type 2 Diabetes mellitus physician obstetrician insulin use: without physician obstetrician use Diabetes mellitus complication status: without complication Qualified Code(s): E11.9 - Type 2 diabetes mellitus without complications Code(s): E11.9 - Type 2 diabetes mellitus without complications Status: Acute (16) Benign essential HTN: Code(s): I10 - Essential (primary) hypertension Status: Acute (17) Atrial fibrillation with controlled ventricular rate: Code(s): I48.91 - Unspecified atrial fibrillation Status: Acute (18) Chronic insomnia: Code(s): F51.04 - Psychophysiologic insomnia Status: Acute (19) Chronic fatigue: Code(s): R53.82 - Chronic fatigue, unspecified Status: Acute (20) Low vitamin D level: Code(s): R79.89 - Other specified abnormal findings of blood chemistry Status: Acute (21) Panic anxiety syndrome: Code(s): F41.0 - Panic disorder [episodic paroxysmal anxiety]
== END 2021-06-05 12:00 | disposition home or self-care (01) ==
LOC: ANHED 17:20 → ANHIMU 17:44
PROVIDERS: Physician Assistant; Admitting Provider Internal Medicine; Emergency Provider Emergency Medicine; PCP Physician Assistant; Visit Provider Hospitalist
DX: R07.9 Chest pain, unspecified (principal); R06.02 Shortness of breath; I48.19 Other persistent atrial fibrillation; L03.90 Cellulitis, unspecified; M25.569 Pain in unspecified knee; I10 Essential (primary) hypertension; J45.909 Unspecified asthma, uncomplicated; F43.10 Post-traumatic stress disorder, unspecified; I25.10 Atherosclerotic heart disease of native coronary artery without angina pectoris; J45.20 Mild intermittent asthma, uncomplicated; G25.81 Restless legs syndrome; H40.9 Unspecified glaucoma; E66.01 Morbid (severe) obesity due to excess calories; F51.04 Psychophysiologic insomnia; R53.82 Chronic fatigue, unspecified; E55.9 Vitamin D deficiency, unspecified; E11.9 Type 2 diabetes mellitus without complications; F33.3 Major depressive disorder, recurrent, severe with psychotic symptoms; F41.0 Panic disorder [episodic paroxysmal anxiety]; E66.9 Obesity, unspecified; Z68.37 Body mass index [BMI] 37.0-37.9, adult; Z79.01 Long term (current) use of anticoagulants; Z78.0 Asymptomatic menopausal state; Z85.3 Personal history of malignant neoplasm of breast; Z85.42 Personal history of malignant neoplasm of other parts of uterus; Z92.3 Personal history of irradiation; F12.90 Cannabis use, unspecified, uncomplicated; Z79.84 Long term (current) use of oral hypoglycemic drugs
CPT/HCPCS: 36415; 71046; 80048; 80053; 80061; 82948; 83036; 83690; 83735; 83880; 84443; 84484; 85025; 85610; 85730; 93005; 93306; 99285; A9270; G0378

== ENCOUNTER 2021-07-01 10:18 | Outpatient (CLI) | payer OTHER, SELFPAY ==
--- NOTE | ~2021-07-01 | MM_ITS ---
CORRECTED REPORT Correction: Recommend additional magnification views of the right breast prior to possible biopsy. COMPARISON: Mammogram dated 07/01/2021 is compared to outside mammograms from [place], [place] dated 12/05/2018 and 10/12/2017 FINDINGS: Breast composed of scattered areas of fibroglandular density. Clustered calcifications in the lower inner quadrant of the right breast, middle third of are new compared with prior examination. The left breast is stable without evidence for malignancy. RECOMMENDATION: Recommend magnification views of the right breast BI-RADS CATEGORY 0 - INCOMPLETE STUDY, NEED ADDITIONAL IMAGING EVALUATION. Ordering provider changed to Liiga Farias PA-C. Dr. Adri Sterling removed from report. 07/01/2021 sef EXAMINATION: MM screening adalid BI w [place] HISTORY: Screening. History of left breast cancer. TECHNIQUE: Craniocaudal and mediolateral oblique 3-D tomosynthesis images were obtained and synthetic 2-D images were generated. CAD analysis was submitted and interpreted. COMPARISON: No prior mammogram is available for comparison at this institution. BREAST PARENCHYMAL COMPOSITION: There are scattered areas of fibroglandular density. FINDINGS: There are clustered nonspecific calcifications in the lower inner quadrant of the right breast. No mammographic evidence for malignancy in the left breast. IMPRESSION: 1. Clustered indeterminate right breast calcifications. 2. Recommend comparison to previous outside mammograms. BI-RADS Category 0: Incomplete: Needs additional imaging evaluation. Reviewed, dictated and finalized at location A. NOT MUNIR
== END 2021-07-01 10:19 | disposition home or self-care (01) ==
PROVIDERS: PCP Physician Assistant; Visit Provider Physician Assistant
DX: Z12.31 Encounter for screening mammogram for malignant neoplasm of breast (principal); R92.8 Other abnormal and inconclusive findings on diagnostic imaging of breast
CPT/HCPCS: 77063; 77067

== ENCOUNTER 2021-08-14 12:49 | Outpatient (CLI) | payer OTHER, SELFPAY ==
--- NOTE | ~2021-08-14 | MM_ITS ---
EXAMINATION: MM diagnostic mammo unilat RT HISTORY: Indeterminate right breast calcifications on screening mammogram TECHNIQUE: Magnification views of the right breast were performed. CAD analysis was submitted and int erpreted. COMPARISON: 07/01/2021, 12/05/2018, 10/12/2017 BREAST PARENCHYMAL COMPOSITION: There are scattered areas of fibroglandular density. FINDINGS: There are grouped calcifications in the middle third of the lower inner breast at the 4:00 location 6.5 cm from the nipple. Calcifications appear to be round in morphology. No suspicious archi tectural distortion is identified. IMPRESSION: 1. Probably benign right breast calcifications. 2. Recommend 6 month follow-up right diagnostic mammogram. BI-RADS category 3, probably benign findings. Reviewed, dictated and finalized at location A.
== END 2021-08-14 12:50 | disposition home or self-care (01) ==
LOC: ANHIMG 12:53
PROVIDERS: PCP Physician Assistant; Visit Provider Physician Assistant
DX: R92.8 Other abnormal and inconclusive findings on diagnostic imaging of breast (principal)
CPT/HCPCS: 77065

== ENCOUNTER 2021-08-16 10:29 | Emergency (ER) | payer OTHER, SELFPAY ==
[2021-08-16 10:38] VITALS: BP 112/64; PULSE 70; RESP 16; TEMP 36.7; O2SAT 98
--- NOTE | 2021-08-16 10:53 | ED.EYEPROB ---
HPI - Eye Problem General Chief complaint: Eye Problems Stated complaint: left eye painful/redness Time Seen by Provider: 08/16/21 10:53 Source: patient, RN notes reviewed and old records reviewed Mode of arrival: ambulatory Limitations: no limitations History of Present Illness HPI Narrative: 66-year-old female presents to the [facility] with increased redness and swelling to the left eye. Patient states that her cat's paw hit her in the eye 11 days ago. Unsure of when the swelling and the redness started. Patient has had no treatment prior to arrival. Patient states left eye with slightly red and teary due to the medication she is on. Normally goes to [facility] [place]. chief complaint: eye pain and eye redness Related Data Home Medications Medication Instructions Recorded Confirmed acetaminophen 650 mg 650 mg PO Q12H 11/06/20 06/03/21 tablet,extended release vitamin B complex 1 tablet PO DAILY 11/06/20 06/03/21 Januvia 25 mg PO DAILY 06/03/21 06/03/21 Rhopressa 1 drp EACH EYE HS 06/03/21 06/03/21 brimonidine 1 drp LEFT EYE Q12H 06/03/21 06/03/21 duloxetine 60 mg PO HS PRN 06/03/21 06/03/21 furosemide 20 mg PO DAILY 06/03/21 06/03/21 latanoprost 1 drp EACH EYE HS 06/03/21 06/03/21 loperamide 2 mg PO Q4H PRN 06/03/21 06/03/21 metoprolol tartrate 12.5 mg PO Q12H 06/03/21 06/03/21 pantoprazole 40 mg PO DAILY 06/03/21 06/03/21 prednisolone acetate [Pred Forte] 1 drp RIGHT EYE DAILY 06/03/21 06/03/21 ropinirole 0.5 mg PO HS 06/03/21 06/03/21 sodium chloride [Lillian 128] 1 drp EACH EYE QID PRN 06/03/21 06/03/21 buspirone mg 08/16/21 Allergies Allergy/AdvReac Type Severity Reaction Status Date / Time bupropion [From Wellbutrin] Allergy Intermediate seizures Verified 06/03/21 15:45 esomeprazole [From Nexium] Allergy Intermediate hives on Verified 06/03/21 15:45 abdominal area Penicillins Allergy Intermediate itchy Verified 06/03/21 15:45 hands and feet Sulfa (Sulfonamide Allergy Intermediate swollen Verified 06/03/21 15:45 Antibiotics) lips Corticosteroids AdvReac Intermediate manic Verified 06/03/21 15:45 (Glucocorticoids) alfalfa AdvReac Vomiting Verified 06/03/21 15:45 Review of Systems Review of Systems: All systems reviewed & are unremarkable except as noted in HPI and below Constitutional: Constitutional: Reports no additional constitutional complaints, Denies chills and Denies fever(s) Eyes: Eyes: Reports as per HPI, Denies blurry vision, Denies exophthalmos, Denies change in vision and Denies photophobia Comments: Tenderness, tearing ENT: Reports system reviewed and no additional complaints, except as documented Cardiovascular: Cardiovascular: Reports no additional cardiovascular complaints and Denies chest pain Respiratory: Respiratory: Reports no additional respiratory complaints, Denies cough and Denies dyspnea Gastrointestinal: Gastrointestinal: Reports no additional gastrointestinal complaints Musculoskeletal: Musculoskeletal: Reports no additional musculoskeletal complaints Integumentary/Breasts: Skin/Breast: Reports system reviewed and no additional complaints, except as docu Neurologic: Reports system reviewed and no additional complaints, except as documented Psychiatric: Psychiatric: Reports no additional psychiatric complaints Allergic/Immunologic: Allergic/Immunologic: Reports no additional allergic/immunologic complaints [facility] Past Medical History Medical History (Updated 08/16/21 @ 11:24 by Maria Esther Sanford APRN) Asthma Benign essential HTN Bipolar disorder Cancer of left breast Status post lumpectomy and radiation. Chronic anticoagulation Chronic fatigue Chronic insomnia Diabetes mellitus Endometrial cancer Glaucoma Morbid obesity Osteoarthritis Panic anxiety syndrome Persistent atrial fibrillation Restless leg syndrome Surgical History Surgical History History of appen
--- NOTE | 2021-08-16 11:13 | PC.NURSE ---
eye set up at bedside [id number]
== END 2021-08-16 11:30 | disposition home or self-care (01) ==
PROVIDERS: Emergency Provider Nurse Practitioner
DX: H57.89 Other specified disorders of eye and adnexa (principal); J45.909 Unspecified asthma, uncomplicated; I10 Essential (primary) hypertension; Z85.3 Personal history of malignant neoplasm of breast; Z79.01 Long term (current) use of anticoagulants; E11.39 Type 2 diabetes mellitus with other diabetic ophthalmic complication; H40.9 Unspecified glaucoma; H42 Glaucoma in diseases classified elsewhere; Z79.84 Long term (current) use of oral hypoglycemic drugs; E66.01 Morbid (severe) obesity due to excess calories; Z68.41 Body mass index [BMI] 40.0-44.9, adult; M19.90 Unspecified osteoarthritis, unspecified site; I48.19 Other persistent atrial fibrillation; G25.81 Restless legs syndrome; Z85.42 Personal history of malignant neoplasm of other parts of uterus
CPT/HCPCS: 99213; A9270; G0463

== ENCOUNTER 2022-07-12 09:06 | Outpatient (CLI) | payer MEDICARE, SELFPAY ==
[2022-07-12 09:46] LABS: Basophils Absolute Auto 0.1 K/mm3 (0.0-0.1); Basophils Percent Auto 1.4 % (0.2-1.2); Eosinophils Absolute Auto 0.2 K/mm3 (0-0.3); Eosinophils Percent Auto 3.3 % (0-4.4); Hematocrit 42.1 % (37.0-47.0); Hemoglobin 13.9 g/dL (12.0-15.0); Immature Granulocyte Absolute 0.03 K/mm3 (0.00-0.031); Immature Granulocyte Percent A 0.5 % (0-0.5); Lymphocytes Absolute Auto 1.11 K/mm3 (0.9-3.2); Lymphocytes Percent Auto 19.2 % (18.3-44.2); Mean Corpuscular Hemoglobin 34.5 pg (26-34); Mean Corpuscular Volume 104.5 fl (80-100); Mean Platelet Volume 10.1 fl (7.4-10.4); Monocytes Absolute Auto 0.5 K/mm3 (0.1-0.6); Monocytes Percent Auto 8.6 % (2.6-8.5); Neutrophils Absolute Auto 3.9 K/mm3 (1.3-6.7); Platelet Count Result 217 k/mm3 (150-375); Red Blood Count 4.03 M/mm3 (4.2-5.4); Red Cell Distribution Width 13.2 % (11.5-14.5); White Blood Count 5.8 K/mm3 (4.5-10.0)
[2022-07-12 10:00] LABS: Alanine Aminotransferase 16 U/L (6-35); Albumin Level 4.5 g/dL (3.5-5.1); Alkaline Phosphatase 90 U/L (38-126); Anion Gap 6 mmol/L (8-16); Aspartate Amino Transferase 19 U/L (14-36); Bilirubin,Total 0.7 mg/dL (0.2-1.3); Blood Urea Nitrogen 15 mg/dL (7-17); Calcium 9.1 mg/dL (8.4-10.2); Carbon Dioxide 31 mmol/L (22-30); Chloride 101 mmol/L (98-107); Cholesterol 182 mg/dL (0-200); Estimated Glomerular Filt Rate > 60; Glucose 128 mg/dL (65-110); HDL Direct 43 mg/dL; Potassium 4.6 mmol/L (3.4-5.0); Sodium 138 mmol/L (137-145); Triglycerides 156 mg/dL (<150)
[2022-07-12 10:10] LABS: LDL Cholesterol Direct 117 mg/dL
[2022-07-12 10:14] LABS: Hemoglobin A1C 6.1 % (<5.7)
[2022-07-12 10:23] LABS: Vitamin D 25 Hydroxy 47.6 ng/mL
[2022-07-12 10:40] LABS: Creatinine Urine 172.5 mg/dL
[2022-07-12 10:45] LABS: MALB Creatinine Ratio 7.8 mg/g (0-30); Microalbumin Urine Random 13.4 mg/L (0-16.7)
== END 2022-07-12 09:07 | disposition home or self-care (01) ==
PROVIDERS: PCP Internal Medicine; Visit Provider Nurse Practitioner Family
DX: E78.5 Hyperlipidemia, unspecified (principal); I10 Essential (primary) hypertension; E11.65 Type 2 diabetes mellitus with hyperglycemia; E55.9 Vitamin D deficiency, unspecified; E53.8 Deficiency of other specified B group vitamins
CPT/HCPCS: 36415; 80053; 80061; 82043; 82306; 82607; 83036; 85025

== ENCOUNTER 2023-01-13 08:55 | Outpatient (CLI) | payer MEDICARE, MEDICAID, SELFPAY ==
[2023-01-13 10:10] LABS: Alanine Aminotransferase 14 U/L (6-35); Albumin Level 4.7 g/dL (3.5-5.1); Alkaline Phosphatase 99 U/L (38-126); Anion Gap 8 mmol/L (8-16); Aspartate Amino Transferase 19 U/L (14-36); Bilirubin,Total 0.6 mg/dL (0.2-1.3); Blood Urea Nitrogen 14 mg/dL (7-17); Calcium 9.5 mg/dL (8.4-10.2); Carbon Dioxide 29 mmol/L (22-30); Chloride 101 mmol/L (98-107); Cholesterol 192 mg/dL (0-200); Estimated Glomerular Filt Rate 55; Glucose 142 mg/dL (65-110); HDL Direct 47 mg/dL; Hemoglobin A1C 6.4 % (<5.7); Potassium 4.1 mmol/L (3.4-5.0); Sodium 138 mmol/L (137-145); Triglycerides 150 mg/dL (<150)
[2023-01-13 10:21] LABS: LDL Cholesterol Direct 109 mg/dL
[2023-01-13 11:21] LABS: Creatinine Urine 330.5 mg/dL
[2023-01-13 11:25] LABS: MALB Creatinine Ratio 6.7 mg/g (0-30); Microalbumin Urine Random 22.2 mg/L (0-16.7)
== END 2023-01-13 08:56 | disposition home or self-care (01) ==
PROVIDERS: PCP Internal Medicine; Visit Provider Nurse Practitioner Family
DX: E11.59 Type 2 diabetes mellitus with other circulatory complications (principal); I15.2 Hypertension secondary to endocrine disorders; E11.69 Type 2 diabetes mellitus with other specified complication; E78.5 Hyperlipidemia, unspecified
CPT/HCPCS: 36415; 80053; 80061; 82043; 83036

== ENCOUNTER 2023-04-11 10:34 | Outpatient (CLI) | payer MEDICARE, MEDICAID, SELFPAY ==
--- NOTE | ~2023-04-11 | US_ITS ---
EXAMINATION: US thyroid DATE: 04/11/2023 12:12 INDICATION: Goiter. TECHNIQUE: Multiple ultrasound images of the thyroid were obtained. COMPARISON: None. FINDINGS: The right thyroid lobe measures 5.3 x 2.0 x 1.8 cm. The left thyroid lobe measures 5.5 x 2.2 x 1.4 c m. There are multiple subcentimeter nodules in the thyroid. In the right thyroid lobe. In the right thyroid lobe, there is an 11 mm solid, hypoechoic, wider than tall nodule with lobulated margin and p unctate echogenic foci (TI-RADS TR5). There is an 8 mm mixed cystic and solid, hypoechoic wider than tall nodule with ill-defined margin without echogenic foci (TR3). In the left thyroid lobe, there is a 12 mm solid, hypoechoic [id number] nodule with ill-defined margin and macrocalcification (TR4) . In the left thyroid lobe, there is an 11 mm solid, hypoechoic, wider than tall nodule with smooth m argin without echogenic foci (TR4). IMPRESSION: 1. Multinodular goiter. Ultrasound-guided fine needle aspiration of the 11 mm right thyroid nodule is recommended. Reviewed, dictated and finalized at location E. 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 Multinodular goiter. Ultrasound-guided fine needle aspiration of the 11 mm r ight thyroid nodule is recommended.
== END 2023-04-11 10:35 | disposition home or self-care (01) ==
PROVIDERS: PCP Internal Medicine; Visit Provider Nurse Practitioner Family
DX: E04.2 Nontoxic multinodular goiter (principal)
CPT/HCPCS: 76536

== ENCOUNTER 2023-05-25 09:37 | Outpatient (CLI) | payer MEDICARE, MEDICAID, SELFPAY ==
--- NOTE | ~2023-05-25 | MM_ITS ---
EXAMINATION: MM screening adalid BI w kashmir HISTORY: Screening TECHNIQUE: Craniocaudal and mediolateral oblique 3-D tomosynthesis images were obtained and synthetic 2-D images were generated. CAD analysis was submitted and interpreted. COMPARISON: Comparison to multiple prior studies sequentially, with oldest reviewed study dated 10/12. BREAST PARENCHYMAL COMPOSITION: Not dense: There are scattered areas of fibroglandular density. FINDINGS: There is a focal mass superiorly in the left breast on MLO view, posterior third. This is n ot seen on CC view. The right breast is stable without evidence for malignancy. IMPRESSION: 1. New mass superior aspect of the left breast posteriorly. 2. Additional mammographic views and possible breast ultrasound are recommended. BI-RADS Category 0: Incomplete: Needs additional imaging evaluation. Reviewed, dictated and finalized at location A. [employer] MANAGER IMPRESSION: 1. New mass superior aspect of the left breast posteriorly. 2. Additional mammographic views and possible breast ultrasound are recommended . BI-RADS Category 0: Incomplete: Needs additional imaging evaluation.
== END 2023-05-25 09:38 | disposition home or self-care (01) ==
LOC: ANHIMG 09:42
PROVIDERS: PCP Nurse Practitioner Family; Visit Provider Nurse Practitioner Family
DX: Z12.31 Encounter for screening mammogram for malignant neoplasm of breast (principal); R92.8 Other abnormal and inconclusive findings on diagnostic imaging of breast
CPT/HCPCS: 77063; 77067

== ENCOUNTER 2023-06-13 08:13 | Outpatient (CLI) | payer MEDICARE, MEDICAID, SELFPAY ==
[2023-06-13 09:03] LABS: Rheumatoid Factor < 12.0 IU/ML (<12)
[2023-06-13 09:32] LABS: Erythrocyte Sedimentation Rate 51 mm/hr (0-20)
[2023-06-13 09:51] LABS: Vitamin D 25 Hydroxy 61.7 ng/mL
== END 2023-06-13 08:14 | disposition home or self-care (01) ==
LOC: ANHLAB 08:18
PROVIDERS: PCP Family Medicine; Visit Provider Nurse Practitioner Family
DX: E11.9 Type 2 diabetes mellitus without complications (principal); E53.8 Deficiency of other specified B group vitamins; F32.9 Major depressive disorder, single episode, unspecified; I10 Essential (primary) hypertension; M25.50 Pain in unspecified joint; M25.569 Pain in unspecified knee; M79.7 Fibromyalgia; R53.82 Chronic fatigue, unspecified; Z13.89 Encounter for screening for other disorder; E55.9 Vitamin D deficiency, unspecified
CPT/HCPCS: 36415; 82306; 82607; 85652; 86430

== ENCOUNTER 2023-06-22 12:39 | Outpatient (CLI) | payer MEDICARE, MEDICAID, SELFPAY ==
--- NOTE | ~2023-06-22 | MM_ITS ---
EXAMINATION: MM diagnostic adalid LT w kashmir HISTORY: New mass reported in the superior aspect of the posterior left breast on screening MLO view of March 24, 2024 TECHNIQUE: Additional 3-D tomosynthesis images of the left breast were performed and synthetic 2-D im ages were generated. CAD analysis was submitted and interpreted. COMPARISON: Serial mammogram examinations from May 25, 2023 2 October 12, 2017 FINDINGS: No suspicious mass or interval architectural distortion is noted compared to 10/12/2017. There is some volume loss and deformity of the left breast on previous partial mastectomy for breast cancer reportedly in 2005. IMPRESSION: 1. BI-RADS Category 2: Benign 2. Routine annual mammographic screening is recommended BI-RADS Category 2: Benign finding(s). Reviewed, dictated and finalized at location A.
== END 2023-06-22 12:40 | disposition home or self-care (01) ==
LOC: ANHIMG 12:40
PROVIDERS: PCP Family Medicine; Visit Provider Family Medicine
DX: R92.8 Other abnormal and inconclusive findings on diagnostic imaging of breast (principal)
CPT/HCPCS: 77061; 77065; G0279

== ENCOUNTER 2023-07-22 12:00 | Outpatient (CLI) | payer MEDICARE, MEDICAID, SELFPAY ==
--- NOTE | ~2023-07-22 | US_ITS ---
EXAMINATION: US FNA w image guidance DATE: 07/22/2023 13:52 INDICATION: Nontoxic single thyroid nodule. TECHNIQUE: The procedure and its benefits and risks were discussed with the patient. Risks specifically discusse d included bleeding. The patient verbalized understanding of the risks and agreed to proceed. The nec k was prepped and draped in the usual sterile manner. 1% lidocaine was used for local anesthesia. 9 passes were made with a 25G needle into the lesion under ultrasound guidance. There were no immedia te complications. FINDINGS: Grayscale ultrasound images demonstrate needles advanced into a 13 mm nodule in right thyroid lobe fo r biopsy. IMPRESSION: 1. Ultrasound-guided fine needle aspiration of a right thyroid nodule. Reviewed, dictated and finalized at location A.
== END 2023-07-22 12:01 | disposition home or self-care (01) ==
PROVIDERS: PCP Family Medicine; Visit Provider Otolaryngology
DX: E04.1 Nontoxic single thyroid nodule (principal)
CPT/HCPCS: 10005; 88172; 88173; 88305

== ENCOUNTER 2023-10-07 22:35 | Emergency (ER) | payer MEDICARE, SELFPAY ==
[2023-10-07] VITALS (8 sets, daily range): BP systolic 139–145; BP diastolic 68–84; PULSE 85–92; RESP 16–22; TEMP 36.9; O2SAT 94–96
--- NOTE | ~2023-10-07 | XR_ITS ---
EXAMINATION: XR chest 2V DATE: 10/07/2023 23:34 INDICATION: Weakness. TECHNIQUE: Frontal and lateral views of the chest were obtained. COMPARISON: Chest 2 view 06/03/2021 FINDINGS: There is no pneumonia, pleural effusion, or pneumothorax. The heart size is normal. There i s mild chronic anterior wedging of multiple vertebral bodies. IMPRESSION: 1. No acute cardiopulmonary disease. Reviewed, dictated and finalized at location E.
--- NOTE | 2023-10-07 22:38 | ECG_ITS ---
Test Date: 2023-10-07 22:43:49 Measurements Intervals [place] Rate: 89 P: 0 UT: 0 QRS: 9 QRSD: 115 T: 121 QT: 393 QTc: 479 Interpretive Statements ATRIAL FIBRILLATION LOW QRS VOLTAGE IN PRECORDIAL LEADS NONSPECIFIC ST-T WAVE ABNORMALITY- DIFFUSE LEADS BASELINE ARTIFACT- I, II, AVR, AVL, AVF, V1 ABNORMAL ECG No previous ECG available for comparison Electronically Signed On 10-09-2023 11:15:51 CDT by Cesar Loving D.O.
[2023-10-07 23:16] LABS: Appearance Urine Clear (Clear); Bacteria Urine None Seen /hpf; Bilirubin Urine Negative (Negative); Blood Urine Negative (Negative); Color Urine Dark Yellow (Yellow); Glucose Urine UA Negative (Negative); Ketones Urine Negative (Negative); Leukocyte Esterase Ur Negative LEU/UL (Negative); Need Manual Microscopic Reviewed; Nitrate Urine Negative (Negative); Non Pathogenic Casts 0-2; Protein Urine Trace mg/dL (Negative); Specific Grav Ur 1.028 (1.001-1.035); Squamous Epithelial Cell Urine None Seen /hpf (Few); WBC Urine 0-5 /hpf (0-3)
[2023-10-07 23:17] LABS: Add Urine Microscopic? YES
[2023-10-07 23:20] LABS: Basophils Absolute Auto 0.1 K/mm3 (0.0-0.1); Basophils Percent Auto 0.8 % (0.2-1.2); Eosinophils Absolute Auto 0.1 K/mm3 (0-0.3); Eosinophils Percent Auto 1.5 % (0-4.4); Hematocrit 35.8 % (37.0-47.0); Hemoglobin 11.6 g/dL (12.0-15.0); Immature Granulocyte Absolute 0.04 K/mm3 (0.00-0.031); Immature Granulocyte Percent A 0.4 % (0-0.5); Lymphocytes Absolute Auto 1.07 K/mm3 (0.9-3.2); Lymphocytes Percent Auto 11.3 % (18.3-44.2); Mean Corpuscular HGB Conc 32.4 g/dl (32-36); Mean Corpuscular Hemoglobin 32.4 pg (26-34); Mean Platelet Volume 9.9 fl (7.4-10.4); Monocytes Absolute Auto 1.1 K/mm3 (0.1-0.6); Monocytes Percent Auto 11.3 % (2.6-8.5); Neutrophils Absolute Auto 7.1 K/mm3 (1.3-6.7); Neutrophils Percent Auto 74.7 % (45.5-73.1); Platelet Count Result 360 k/mm3 (150-375); Red Blood Count 3.58 M/mm3 (4.2-5.4); Red Cell Distribution Width 13.4 % (11.5-14.5); White Blood Count 9.5 K/mm3 (4.5-10.0)
[2023-10-07 23:35] LABS: Alanine Aminotransferase 9 U/L (6-35); Albumin Level 3.9 g/dL (3.5-5.1); Alkaline Phosphatase 112 U/L (38-126); Anion Gap 13 mmol/L (4-12); Aspartate Amino Transferase 18 U/L (14-36); Bilirubin,Total 0.6 mg/dL (0.2-1.3); Blood Urea Nitrogen 18 mg/dL (7-17); Calcium 9.3 mg/dL (8.4-10.2); Carbon Dioxide 26 mmol/L (22-30); Chloride 98 mmol/L (98-107); Estimated CRCL calculation 76 ml/min; Estimated Glomerular Filt Rate > 60; Glucose 168 mg/dL (65-110); Potassium 4.4 mmol/L (3.4-5.0); Sodium 137 mmol/L (137-145)
--- NOTE | 2023-10-07 23:55 | PC.NURSE ---
pt continues to raise her voice towards this rn and staff. Pt yelling you all have attitude problems and are not helping me. stop bending my arm back wards you are hurting me. This rn and no staff members were currently touching the patient. This rn offered to help move the patient in the bed to be more comfortable and prior to using the fall pad to move pt she started screaming stop touching me your are hurting me, you are bending my arms back wards. Pt arms are currently resting on her stomach with no staff touching pt.
[2023-10-08] VITALS (13 sets, daily range): BP systolic 157–180; BP diastolic 99–144; PULSE 0–93; RESP 13–34; O2SAT 96–99
--- NOTE | 2023-10-08 00:35 | ED.GENADULT ---
HPI - General Adult General Chief complaint: Weakness Stated complaint: PAIN IN BILAT LEGS/WEAKNESS Time Seen by Provider: 10/08/23 00:19 History of Present Illness HPI narrative: 68-year-old female presented to the emergency department for evaluation for increased arthritic pain. Patient denies any falls or injuries. Patient states that she had been on tramadol for short period of time and this helped. Patient states that she had physical therapy for her arthritic pain and this seemed to worsen her pain. Patient denies any new falls or injuries. Related Data Home Medications Medication Instructions Recorded Confirmed acetaminophen 650 mg 650 mg PO Q12H 11/06/20 07/28/23 tablet,extended release vitamin B complex (B 1 tablet PO DAILY 11/06/20 07/28/23 Complex-Vitamin B12 tablet) furosemide 20 mg tablet 20 mg PO DAILY 06/03/21 07/28/23 metoprolol tartrate 25 mg tablet 12.5 mg PO Q12H 06/03/21 07/28/23 netarsudil 0.02 % eye drops 1 drp EACH EYE HS 06/03/21 07/28/23 (Rhopressa) prednisolone acetate 1 % eye 1 drp RIGHT EYE DAILY 06/03/21 07/28/23 drops,suspension (Pred Forte) sodium chloride 5 % eye drops 1 drp EACH EYE QID PRN Dry Eye(S) 06/03/21 07/28/23 (Lillian 128) FreeStyle Lite Strips 10/07/23 10/07/23 apixaban 5 mg tablet (Eliquis) mg 10/07/23 blood-glucose meter (FreeStyle 10/07/23 10/07/23 Lite Meter kit) brimonidine 0.15 % eye drops 1 drp EACH EYE Q8H 10/07/23 (Alphagan P) latanoprost 0.005 % eye drops drp 10/07/23 (Xalatan) loperamide 2 mg capsule 2 mg PO Q4H PRN Abdominal 10/07/23 (Anti-Diarrheal (loperamide)) Discomfort pantoprazole 40 mg tablet,delayed mg PO 10/07/23 release sitagliptin phosphate 25 mg tablet mg 10/07/23 (Januvia) Allergies Allergy/AdvReac Type Severity Reaction Status Date / Time bupropion [From Wellbutrin] Allergy Intermediate seizures Verified 07/28/23 11:36 esomeprazole [From Nexium] Allergy Intermediate hives on Verified 07/28/23 11:36 abdominal area Penicillins Allergy Intermediate itchy Verified 07/28/23 11:36 hands and feet Sulfa (Sulfonamide Allergy Intermediate swollen Verified 07/28/23 11:36 Antibiotics) lips Corticosteroids AdvReac Intermediate manic Verified 07/28/23 11:36 (Glucocorticoids) alfalfa AdvReac Vomiting Verified 07/28/23 11:36 Review of Systems Review of Systems: All systems reviewed & are unremarkable except as noted in HPI and below PMFSH Past Medical History Medical History Asthma Benign essential HTN Bipolar disorder Cancer of left breast Status post lumpectomy and radiation. Chronic anticoagulation Chronic fatigue Chronic insomnia Diabetes mellitus Encounter for medical examination to establish care Endometrial cancer Fibromyalgia Glaucoma Goiter Morbid obesity Osteoarthritis Panic anxiety syndrome Persistent atrial fibrillation Restless leg syndrome Surgical History Surgical History History of appendectomy History of cardiac radiofrequency ablation History of cholecystectomy History of lumpectomy of left breast History of tonsillectomy History of total hysterectomy with bilateral salpingo-oophorectomy (BSO) Family History Family History Other Diabetes mellitus Heart disease Hypertension Social History Social History Social History: Surrogate decision maker: Evin Bartlett, son. Code status: Full code. Smoking status: Never smoker Second hand tobacco smoke exposure: No Alcohol intake: never Substance use: former Substance use type: marijuana Other substance usage details: Gummies taken for pain. Living arrangements: alone Additional living arrangements comments: The patient is and lives in [place] with her cat, Ganeshn. She has one
[2023-10-08] MEDS: traMADol HCL (*CRX) 50 MG TABLET PO (00:45)
== END 2023-10-08 03:29 ==
PROVIDERS: Emergency Provider Emergency Medicine; PCP Family Medicine
DX: M19.90 Unspecified osteoarthritis, unspecified site (principal); J45.909 Unspecified asthma, uncomplicated; I10 Essential (primary) hypertension; I48.19 Other persistent atrial fibrillation; E11.39 Type 2 diabetes mellitus with other diabetic ophthalmic complication; H42 Glaucoma in diseases classified elsewhere; E66.01 Morbid (severe) obesity due to excess calories; Z68.41 Body mass index [BMI] 40.0-44.9, adult; F51.04 Psychophysiologic insomnia; M79.7 Fibromyalgia; G25.81 Restless legs syndrome; Z85.42 Personal history of malignant neoplasm of other parts of uterus; Z85.3 Personal history of malignant neoplasm of breast; Z90.49 Acquired absence of other specified parts of digestive tract; Z90.722 Acquired absence of ovaries, bilateral; Z90.79 Acquired absence of other genital organ(s); Z90.710 Acquired absence of both cervix and uterus; Z79.01 Long term (current) use of anticoagulants; Z79.899 Other long term (current) drug therapy; Z79.84 Long term (current) use of oral hypoglycemic drugs; R94.31 Abnormal electrocardiogram [ECG] [EKG]
CPT/HCPCS: 36415; 71046; 80053; 81001; 85025; 93005; 99284; A9270

== ENCOUNTER 2023-10-23 13:14 | Emergency (ER) | payer MEDICARE, SELFPAY ==
--- NOTE | ~2023-10-23 | XR_ITS ---
XR knee LT min 4V DATE: 10/23/2023 14:05 INDICATION: Pain with any movement TECHNIQUE: Portable 4 view examination COMPARISON: None FINDINGS: There is severe tricompartment osteoarthritis with severe narrowing of the medial and later al compartment joint spaces and very prominent periarticular spurring in all 3 compartments. Prominent suprapatellar knee joint effusion. There is mild lateral subluxation of the femoral tibial joint. No fracture or dislocation, periosteal reaction or bone destruction, radiopaque intra-articular loose body or chondral calcinosis is noted. IMPRESSION: Severe tricompartment osteoarthritis and prominent suprapatellar knee joint effusion Reviewed, dictated and finalized at location J. IMPRESSION: Severe tricompartment osteoarthritis and prominent suprapatellar kn ee joint effusion
--- NOTE | ~2023-10-23 | XR_ITS ---
XR knee RT min 4V DATE: 10/23/2023 14:05 INDICATION: Pain with any movement TECHNIQUE: 4 portable views COMPARISON: None FINDINGS: There is prominent suprapatellar knee joint effusion. There is prominent tricompartmental osteoarthritis with prominent joint space narrowing and periartic ular spurring, not as severe as on the left. There is mild lateral subluxation of the femoral tibial joint. No fracture, dislocation, periosteal reaction or bone destruction is detected. No radiopaque intra-ar ticular loose body or chondrocalcinosis is noted. IMPRESSION: Prominent suprapatellar knee joint effusion Severe tricompartment osteoarthritis, not as severe as on the left Reviewed, dictated and finalized at location J.
[2023-10-23 13:15] VITALS: BP 143/91; PULSE 70; RESP 16; TEMP 36.5; O2SAT 97
[2023-10-23] MEDS: traMADol HCL (*CRX) 50 MG TABLET PO (14:03)
--- NOTE | 2023-10-23 15:22 | ED.EXTPRO ---
HPI - Extremity Problem General Chief complaint: Extremity Problem,Nontraumatic Stated complaint: knee pain Time Seen by Provider: 10/23/23 13:20 Source: patient, EMS, RN notes reviewed and old records reviewed Mode of arrival: EMS Limitations: no limitations History of Present Illness HPI Narrative: This is a 68 year female with history of chronic knee pain and possible fibromyalgia who presents for evaluation of bilateral knee pain. She reports she has had issues with knee pain for years but it has worsened over the past 1 month. She states she is having difficulty with transferring and walking. She was evaluated in [place] ER 2 weeks ago for this pain. She had labs that did not show any significant abnormality. She was prescribed tramadol which seemed to help her pain. She was evaluated by Rheumatology 3 days ago. She states she was told to stop taking her tramadol because it may make her pain worse. She has not taken another other than tylenol sincE . She denies any new trauma. Related Data Home Medications Medication Instructions Recorded Confirmed acetaminophen 650 mg 650 mg PO Q12H 11/06/20 07/28/23 tablet,extended release vitamin B complex (B 1 tablet PO DAILY 11/06/20 07/28/23 Complex-Vitamin B12 tablet) furosemide 20 mg tablet 20 mg PO DAILY 06/03/21 07/28/23 metoprolol tartrate 25 mg tablet 12.5 mg PO Q12H 06/03/21 07/28/23 netarsudil 0.02 % eye drops 1 drp EACH EYE HS 06/03/21 07/28/23 (Rhopressa) prednisolone acetate 1 % eye 1 drp RIGHT EYE DAILY 06/03/21 07/28/23 drops,suspension (Pred Forte) sodium chloride 5 % eye drops 1 drp EACH EYE QID PRN Dry Eye(S) 06/03/21 07/28/23 (Lillian 128) FreeStyle Lite Strips 10/07/23 10/07/23 apixaban 5 mg tablet (Eliquis) mg 10/07/23 blood-glucose meter (FreeStyle 10/07/23 10/07/23 Lite Meter kit) brimonidine 0.15 % eye drops 1 drp EACH EYE Q8H 10/07/23 (Alphagan P) latanoprost 0.005 % eye drops drp 10/07/23 (Xalatan) loperamide 2 mg capsule 2 mg PO Q4H PRN Abdominal 10/07/23 (Anti-Diarrheal (loperamide)) Discomfort pantoprazole 40 mg tablet,delayed mg PO 10/07/23 release sitagliptin phosphate 25 mg tablet mg 10/07/23 (Januvia) Allergies Allergy/AdvReac Type Severity Reaction Status Date / Time bupropion [From Wellbutrin] Allergy Intermediate seizures Verified 07/28/23 11:36 esomeprazole [From Nexium] Allergy Intermediate hives on Verified 07/28/23 11:36 abdominal area Penicillins Allergy Intermediate itchy Verified 07/28/23 11:36 hands and feet Sulfa (Sulfonamide Allergy Intermediate swollen Verified 07/28/23 11:36 Antibiotics) lips Corticosteroids AdvReac Intermediate manic Verified 07/28/23 11:36 (Glucocorticoids) alfalfa AdvReac Vomiting Verified 07/28/23 11:36 Review of Systems Review of Systems: All systems reviewed & are unremarkable except as noted in HPI and below PMFSH Past Medical History Medical History (Updated 10/23/23 @ 15:35 by Geraldine Gerber MD) Asthma Benign essential HTN Bipolar disorder Cancer of left breast Status post lumpectomy and radiation. Chronic anticoagulation Chronic fatigue Chronic insomnia Diabetes mellitus Encounter for medical examination to establish care Endometrial cancer Fibromyalgia Glaucoma Goiter Joint pain Morbid obesity Osteoarthritis Panic anxiety syndrome Persistent atrial fibrillation Restless leg syndrome Surgical History Surgical History History of appendectomy History of cardiac radiofrequency ablation History of cholecystectomy History of lumpectomy of left breast History of tonsillectomy History of total hysterectomy with bilateral salpingo-oophorectomy (BSO) Family History Family History Other Diabetes mellitus Heart disease Hypertension Social History Social History (Reviewed 10/23/23 @ 20:09 by Edson
--- NOTE | 2023-10-23 16:42 | PCCCNOTE ---
CC called to the ED to discuss pt going back to [facility] after the ED. Pt is having a very difficult time walking d/t the pain in her knees. I spoke with the RN, Sameera from [facility] regarding pt returning to the facility tonight and if they are able to care for her until the staff and family can decide if she needs moved to a higher level of care, she said they could and tomorrow they can have a meeting to discuss the patients needs. I spoke with the pt and explained to her that she is safe to return there and they would meet tomorrow to discuss further care, She verbalized understanding and agreed to this. She said she would need an ambulance to take her back because she is unable to walk, I explained to her that if she doesn't qualify medically, she may get a bill, she said that she was fine with that, because she has no other way to get there.
== END 2023-10-23 16:50 ==
PROVIDERS: Emergency Provider General Practice; PCP Family Medicine
DX: M17.0 Bilateral primary osteoarthritis of knee (principal); G89.29 Other chronic pain; J45.909 Unspecified asthma, uncomplicated; I10 Essential (primary) hypertension; Z85.3 Personal history of malignant neoplasm of breast; Z79.01 Long term (current) use of anticoagulants; E11.9 Type 2 diabetes mellitus without complications; F41.9 Anxiety disorder, unspecified; M79.7 Fibromyalgia
CPT/HCPCS: 73564; 99284; A9270

== ENCOUNTER 2023-11-03 14:09 | Emergency (ER) | payer MEDICARE, SELFPAY ==
--- NOTE | ~2023-11-03 | CT_ITS ---
CT abdomen pelvis w con Ordering provider: Farhat Rob MD History: 68 years Female with . Abdominal pain, constipation . Comparison: None. Technique: CT abdomen and pelvis with IV and without oral contrast. Automated exposure control and it erative reconstruction technique were employed. The dose-length product was 1426.66 mGy-cm. 100 mL Om nipaque 350 was given IV. Findings: VISUALIZED LOWER CHEST: Normal. UPPER ABDOMINAL ORGANS: Liver: Normal. Gallbladder: Not demonstrated most likely surgically removed. Spleen: Normal. Stomach/duodenum: Small sliding hiatus hernia. Pancreas: Normal. Adrenals: Slightly prominent adrenal glands. Kidneys: Lobulated outline of the kidneys most likely due to lobation old scarring is possible. PELVIC ORGANS: The bladder is underfilled BOWEL AND MESENTERY: Colon: Mild sigmoid diverticulosis without diverticulitis. Fecal material is loaded in the colon sugg estive of constipation. Slightly thickened wall of the rectum clinical correlation advised. The appen anurag is not demonstrated. Small Bowel: Normal. No obstruction. Peritoneum/mesentery: No free air or free fluid. No mesenteric lymphadenopathy. RETROPERITONEUM: Mild atheromatous disease of the abdominal aorta. Para-aortic lymph nodes are seen near to the bifurcation with the largest measuring 1.7 cm. MUSCULOSKELETAL: Superficial soft tissues: Tiny fat-containing umbilical hernia. Otherwise, The superficial soft tissu es are normal. Bones: Age appropriate degenerative changes of the spine. IMPRESSION: 1. No evidence of appendicitis, diverticulitis or intestinal obstruction. 2. Slightly thickened wall of the rectum with constipation. 3. Lobulated outline of the kidneys. Bilateral atelectatic lymphadenopathy is seen near to the bifur cation of the aorta. Follow-up advised. 4. Small sliding hiatus hernia. Reviewed, dictated and finalized at location A. IMPRESSION: 1. No evidence of appendicitis, diverticulitis or intestinal obstruction. 2. Slightly thickened wall of the rectum with constipation. 3. Lobulated outline of the kidneys. Bilateral atelectatic lymphadenopathy is seen near to the bifurcation of the aorta. Follow-up advised. 4. Small sliding hiatus hernia.
[2023-11-03 14:11] VITALS: BP 110/77; PULSE 92; RESP 16; TEMP 36.9; O2SAT 99
--- NOTE | 2023-11-03 14:31 | ED.ABDPAIN ---
HPI - Abdominal Pain General Chief Complaint: Abdominal Pain Stated Complaint: ?bowel obstruction History of Present Illness HPI narrative: 68-year-old female presenting to the emergency department for evaluation for 8 days of constipation. Patient states that she does feel the urge to use the bathroom but is unable to pass the large stool ball that she feels is there. Patient does have longstanding issues with constipation. Patient denies any previous history of small bowel obstruction. Patient does have prior history of cholecystectomy in 1984 and a total hysterectomy in 2005 Related Data Home Medications Medication Instructions Recorded Confirmed acetaminophen 650 mg 650 mg PO Q12H 11/06/20 07/28/23 tablet,extended release vitamin B complex (B 1 tablet PO DAILY 11/06/20 07/28/23 Complex-Vitamin B12 tablet) furosemide 20 mg tablet 20 mg PO DAILY 06/03/21 07/28/23 netarsudil 0.02 % eye drops 1 drp EACH EYE HS 06/03/21 07/28/23 (Rhopressa) prednisolone acetate 1 % eye 1 drp RIGHT EYE DAILY 06/03/21 07/28/23 drops,suspension (Pred Forte) sodium chloride 5 % eye drops 1 drp EACH EYE QID PRN Dry Eye(S) 06/03/21 07/28/23 (Lillian 128) FreeStyle Lite Strips 10/07/23 10/07/23 apixaban 5 mg tablet (Eliquis) mg 10/07/23 blood-glucose meter (FreeStyle 10/07/23 10/07/23 Lite Meter kit) brimonidine 0.15 % eye drops 1 drp EACH EYE Q8H 10/07/23 (Alphagan P) latanoprost 0.005 % eye drops drp 10/07/23 (Xalatan) loperamide 2 mg capsule 2 mg PO Q4H PRN Abdominal 10/07/23 (Anti-Diarrheal (loperamide)) Discomfort pantoprazole 40 mg tablet,delayed mg PO 10/07/23 release sitagliptin phosphate 25 mg tablet mg 10/07/23 (Januvia) Allergies Allergy/AdvReac Type Severity Reaction Status Date / Time bupropion [From Wellbutrin] Allergy Intermediate seizures Verified 11/03/23 14:29 esomeprazole [From Nexium] Allergy Intermediate hives on Verified 11/03/23 14:29 abdominal area Penicillins Allergy Intermediate itchy Verified 11/03/23 14:29 hands and feet Sulfa (Sulfonamide Allergy Intermediate swollen Verified 11/03/23 14:29 Antibiotics) lips Corticosteroids AdvReac Intermediate manic Verified 11/03/23 14:29 (Glucocorticoids) alfalfa AdvReac Vomiting Verified 11/03/23 14:29 Review of Systems Review of Systems: All systems reviewed & are unremarkable except as noted in HPI and below PMFSH Past Medical History Medical History (Updated 11/03/23 @ 16:57 by Farhat Rob MD) Asthma Benign essential HTN Bipolar disorder Cancer of left breast Status post lumpectomy and radiation. Chronic anticoagulation Chronic fatigue Chronic insomnia Diabetes mellitus Encounter for medical examination to establish care Endometrial cancer Fibromyalgia Glaucoma Goiter Joint pain Morbid obesity Osteoarthritis Panic anxiety syndrome Persistent atrial fibrillation Restless leg syndrome Surgical History Surgical History History of appendectomy History of cardiac radiofrequency ablation History of cholecystectomy History of lumpectomy of left breast History of tonsillectomy History of total hysterectomy with bilateral salpingo-oophorectomy (BSO) Family History Family History Other Diabetes mellitus Heart disease Hypertension Social History Social History Social History: Surrogate decision maker: Evin Bartlett, son. Code status: Full code. Smoking status: Never smoker Second hand tobacco smoke exposure: No Alcohol intake: never Substance use: former Substance use type: marijuana Other substance usage details: Gummies taken for pain. Living arrangements: alone Additional living arrangements comments: The patient is and lives in [place] with her cat, Lizbet. She has one son. 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
[2023-11-03 14:37] LABS: Basophils Absolute Auto 0.1 K/mm3 (0.0-0.1); Basophils Percent Auto 0.9 % (0.2-1.2); Eosinophils Absolute Auto 0.2 K/mm3 (0-0.3); Eosinophils Percent Auto 2.1 % (0-4.4); Hematocrit 38.6 % (37.0-47.0); Hemoglobin 12.2 g/dL (12.0-15.0); Immature Granulocyte Absolute 0.04 K/mm3 (0.00-0.031); Immature Granulocyte Percent A 0.5 % (0-0.5); Lymphocytes Absolute Auto 0.92 K/mm3 (0.9-3.2); Lymphocytes Percent Auto 10.5 % (18.3-44.2); Mean Corpuscular HGB Conc 31.6 g/dl (32-36); Mean Corpuscular Hemoglobin 31.7 pg (26-34); Mean Corpuscular Volume 100.3 fl (80-100); Mean Platelet Volume 9.7 fl (7.4-10.4); Monocytes Absolute Auto 0.8 K/mm3 (0.1-0.6); Monocytes Percent Auto 9.6 % (2.6-8.5); Neutrophils Absolute Auto 6.7 K/mm3 (1.3-6.7); Neutrophils Percent Auto 76.4 % (45.5-73.1); Platelet Count Result 434 k/mm3 (150-375); Red Blood Count 3.85 M/mm3 (4.2-5.4); Red Cell Distribution Width 13.2 % (11.5-14.5); White Blood Count 8.8 K/mm3 (4.5-10.0)
[2023-11-03 14:49] LABS: Lactic Acid Reflex 1.4 mmol/L (0.7-2.0)
[2023-11-03 14:50] LABS: Alanine Aminotransferase 10 U/L (6-35); Albumin Level 3.9 g/dL (3.5-5.1); Alkaline Phosphatase 99 U/L (38-126); Anion Gap 9 mmol/L (4-12); Aspartate Amino Transferase 15 U/L (14-36); Bilirubin,Total 0.6 mg/dL (0.2-1.3); Blood Urea Nitrogen 13 mg/dL (7-17); Calcium 9.2 mg/dL (8.4-10.2); Carbon Dioxide 30 mmol/L (22-30); Chloride 97 mmol/L (98-107); Estimated CRCL calculation 74 ml/min; Estimated Glomerular Filt Rate > 60; Glucose 217 mg/dL (65-110); INR 1.4; Lipase 80 U/L (23-300); Potassium 3.8 mmol/L (3.4-5.0); Prothrombin Time 17.7 Seconds (11.1-14.7); Sodium 136 mmol/L (137-145)
[2023-11-03 14:51] LABS: Partial Thromboplastin Time 36.6 Seconds (22.3-36.8)
[2023-11-03 15:50] LABS: Add Urine Microscopic? YES; Appearance Urine Clear (Clear); Bacteria Urine None Seen /hpf; Bilirubin Urine 1+ (Negative); Blood Urine Negative (Negative); Color Urine Dark Yellow (Yellow); Glucose Urine UA Negative (Negative); Ketones Urine Trace mg/dL (Negative); Leukocyte Esterase Ur Negative LEU/UL (Negative); Need Manual Microscopic Reviewed; Nitrate Urine Negative (Negative); Protein Urine Trace mg/dL (Negative); Specific Grav Ur 1.026 (1.001-1.035); Squamous Epithelial Cell Urine Few /hpf (Few); WBC Urine 0-5 /hpf (0-3); pH Urine 5.5 (5.0-9.0)
[2023-11-03 16:12] VITALS: BP 136/84; PULSE 87; RESP 16; TEMP 37.1; O2SAT 100
[2023-11-03 17:06] VITALS: BP 144/58; PULSE 101; RESP 18; O2SAT 96
[2023-11-03 17:20] VITALS: BP 144/58; PULSE 84; RESP 15; O2SAT 99
== END 2023-11-03 17:21 ==
PROVIDERS: Emergency Provider Emergency Medicine; PCP Family Medicine
DX: K59.00 Constipation, unspecified (principal); I48.19 Other persistent atrial fibrillation; I10 Essential (primary) hypertension; E11.9 Type 2 diabetes mellitus without complications; E66.01 Morbid (severe) obesity due to excess calories; Z68.39 Body mass index [BMI] 39.0-39.9, adult; M19.90 Unspecified osteoarthritis, unspecified site; G25.81 Restless legs syndrome; J45.909 Unspecified asthma, uncomplicated; F31.9 Bipolar disorder, unspecified; F41.0 Panic disorder [episodic paroxysmal anxiety]; Z85.3 Personal history of malignant neoplasm of breast; Z85.42 Personal history of malignant neoplasm of other parts of uterus; Z90.49 Acquired absence of other specified parts of digestive tract; Z90.710 Acquired absence of both cervix and uterus; Z90.722 Acquired absence of ovaries, bilateral; Z90.79 Acquired absence of other genital organ(s); Z79.4 Long term (current) use of insulin; Z79.84 Long term (current) use of oral hypoglycemic drugs; K44.9 Diaphragmatic hernia without obstruction or gangrene
CPT/HCPCS: 36415; 74177; 80053; 81001; 83605; 83690; 85025; 85610; 85730; 99284; Q9967

== ENCOUNTER 2023-11-14 08:58 | Inpatient (IN) | payer MEDICARE, SELFPAY ==
[2023-11-14] VITALS (20 sets, daily range): BP systolic 105–143; BP diastolic 66–78; PULSE 88–110; RESP 15–26; TEMP 36.4–39.4; O2SAT 92–100; BMI 39.1
--- NOTE | ~2023-11-14 | US_ITS ---
EXAMINATION: US renal BI DATE: 11/19/2023 16:16 INDICATION: Pyelonephritis follow-up TECHNIQUE: Multiple grayscale and Doppler ultrasound images of the kidneys were obtained. COMPARISON: CT abdomen pelvis 11/14/2023 FINDINGS: Somewhat limited visualization of the left kidney due to the inability of the patient to roll. The ri ght kidney measures 10.4 x 4.6 x 5.1 cm. The left kidney measures 9.3 x 5.5 x 4.9 cm. The kidneys dem onstrate normal parenchymal echogenicity. Bilateral renal scarring. There is no hydronephrosis. The b ladder is normal. IMPRESSION: Unremarkable renal sonogram findings. Reviewed, dictated and finalized at location K.
--- NOTE | ~2023-11-14 | CT_ITS ---
CT brain wo con Ordering provider: Cynthia Perez PA-C History: 68 years Female with . weakness, confusion per NH report . Comparison: None. Technique: CT of the head without contrast. Radiation reduction technique utilized. DLP is 681 mGy-cm. FINDINGS: BRAIN PARENCHYMA AND CSF SPACES: Mild leukoaraiosis and diffuse cortical atrophy. Mild atheromatous d isease. No midline shift, mass effect or hemorrhage. The brain parenchyma and CSF spaces are otherwi se normal. VISUALIZED PARANASAL SINUSES: Well aerated. MASTOIDS: Well aerated. BONES: The bones appear intact. SOFT TISSUES: Visualized nasopharynx is normal. Superficial soft tissues are normal. IMPRESSION: No acute intracranial findings. Reviewed, dictated and finalized at location A.
--- NOTE | ~2023-11-14 | CT_ITS ---
EXAMINATION: CT abdomen pelvis w con DATE: 11/14/2023 21:53 INDICATION: left sided abdominal pain, fever TECHNIQUE: Computed tomography (CT) of the abdomen and pelvis was performed with 100 mL Omnipaque-350 intravenous contrast. Automated exposure control and iterative reconstruction technique were employe d. The dose-length product was 1479.62 mGy-cm. COMPARISON: 11/03/2023. FINDINGS: Lower thorax: Coronary artery calcifications. Liver: Normal. Biliary/Gallbladder: Gallbladder is absent. No bile duct dilation. Pancreas: No mass or duct dilation. Spleen: Normal. Adrenals:No mass. Kidneys: Increasing mild right perinephric stranding. Small focus of patchy hypoenhancement in the ri ght upper pole. Bilateral renal scarring. No obstructing calculi or suspicious mass. No hydronephrosi s. GI tract: Small hiatal hernia. No small or large bowel dilation. Appendix not confidently identified. Diverticulosis without diverticulitis. Mesentery/Peritoneum: No ascites, mass, or free air. Retroperitoneum: No mass. Atherosclerotic abdominal aortic and/or arterial calcifications. Enlarged l ymph nodes adjacent to the left iliac vessels. Pelvis: Partially distended urinary bladder with mild inflammatory stranding. Absent uterus. Pelvic s urgical clips. Ovaries not confidently identified. Enlarged left inguinal and pelvic sidewall lymph n odes. Soft Tissues: Soft tissues and body wall unremarkable. Bones: No acute osseous finding. IMPRESSION: Right renal findings concerning for pyelonephritis. Cystitis. Stable left iliac and pelvic lymphadenopathy. Reviewed, dictated and finalized at location K.
--- NOTE | ~2023-11-14 | XR_ITS ---
EXAMINATION: XR chest 2V DATE: 11/14/2023 10:00 INDICATION: Weakness. TECHNIQUE: Frontal and lateral views of the chest were obtained on 3 radiographs. COMPARISON: Chest 2 views 10/07/2023, CT abdomen and pelvis 11/03/2023 FINDINGS: There is no pneumonia, pleural effusion, or pneumothorax. Cardiomegaly is noted. There is m ild chronic anterior wedging of multiple thoracic vertebral bodies. IMPRESSION: 1. Cardiomegaly. Reviewed, dictated and finalized at location A. IMPRESSION: 1. Cardiomegaly.
--- NOTE | 2023-11-14 09:20 | ECG_ITS ---
Test Date: 2023-11-14 09:23:50 Measurements Intervals [place] Rate: 105 P: 0 LA: 0 QRS: -1 QRSD: 81 T: 192 QT: 316 QTc: 418 Interpretive Statements ATRIAL FIBRILLATION WITH RAPID VENTRICULAR RESPONSE NONSPECIFIC T-WAVE ABNORMALITY AND NORMAL ECG Electronically Signed On 11-14-2023 11:02:48 CDT by Alejo Mi M.D.
[2023-11-14 09:34] LABS: Basophils Absolute Auto 0.1 K/mm3 (0.0-0.1); Basophils Percent Auto 0.5 % (0.2-1.2); Eosinophils Percent Auto 0.4 % (0-4.4); Hematocrit 34.3 % (37.0-47.0); Hemoglobin 11.1 g/dL (12.0-15.0); Immature Granulocyte Absolute 0.04 K/mm3 (0.00-0.031); Immature Granulocyte Percent A 0.4 % (0-0.5); Lymphocytes Absolute Auto 0.64 K/mm3 (0.9-3.2); Lymphocytes Percent Auto 5.8 % (18.3-44.2); Mean Corpuscular HGB Conc 32.4 g/dl (32-36); Mean Corpuscular Hemoglobin 31.5 pg (26-34); Mean Corpuscular Volume 97.4 fl (80-100); Mean Platelet Volume 9.4 fl (7.4-10.4); Monocytes Absolute Auto 0.9 K/mm3 (0.1-0.6); Monocytes Percent Auto 7.7 % (2.6-8.5); Neutrophils Absolute Auto 9.4 K/mm3 (1.3-6.7); Neutrophils Percent Auto 85.2 % (45.5-73.1); Platelet Count Result 334 k/mm3 (150-375); Red Blood Count 3.52 M/mm3 (4.2-5.4); Red Cell Distribution Width 13.7 % (11.5-14.5); White Blood Count 11.1 K/mm3 (4.5-10.0)
[2023-11-14 09:46] LABS: INR 1.3; Partial Thromboplastin Time 38.3 Seconds (22.3-36.8); Prothrombin Time 16.6 Seconds (11.1-14.7)
[2023-11-14 09:57] LABS: Add Urine Microscopic? YES; Appearance Urine Cloudy (Clear); Bacteria Urine Rare /hpf; Bilirubin Urine Negative (Negative); Blood Urine Trace (Negative); Color Urine Yellow (Yellow); Glucose Urine UA Negative (Negative); Ketones Urine Negative (Negative); Leukocyte Esterase Ur 3+ LEU/UL (Negative); Need Manual Microscopic Reviewed; Nitrate Urine Negative (Negative); Non Pathogenic Casts 0-2; Protein Urine Trace mg/dL (Negative); Specific Grav Ur 1.014 (1.001-1.035); Squamous Epithelial Cell Urine None Seen /hpf (Few); WBC Urine >100 /hpf (0-3)
--- NOTE | 2023-11-14 10:19 | ED.WEAKNESS ---
HPI - Weakness General Chief complaint: Weakness <Cynthia Perez PA-C - Last Filed: 11/14/23 15:26> Stated complaint: weakness <ADAM Kline Last Filed: 11/14/23 15:26> Time Seen by Provider: 11/14/23 09:20 <Cynthia Perez PA-C - Last Filed: 11/14/23 15:26> Source: patient <ADAM Kline Last Filed: 11/14/23 15:26> Mode of arrival: EMS <ADAM Kline Last Filed: 11/14/23 15:26> Limitations: no limitations <ADAM Kline Last Filed: 11/14/23 15:26> History of Present Illness HPI Narrative: patient is a 68-year-old female who presents the ED via EMS with report of weakness. Patient is resident of [facility]. patient typically uses a wheelchair for mobility, but is able to stand and transfer on her own. Today, she reports she had a hard time even getting out of bed, unable to stand up. States she felt weak overall. Denied focal weakness or numbness. She was then sent here for further evaluation. intermediate reports stated patient was slightly confused this morning. She is alert oriented x4 at my evaluation. She does also report having swelling in her lower extremities over the last few days. States it typically resolves after laying/sleeping, but has not been improved over the last few days with this. Patient denies chest pain, shortness of breath, abdominal pain, nausea, vomiting, known fevers. Patient is on Eliquis due to history of atrial fibrillation. <ADAM Kline Last Filed: 11/14/23 15:26> Related Data Home medications: Home Medications Medication Instructions Recorded Confirmed acetaminophen 650 mg 650 mg PO Q12H 11/06/20 11/14/23 tablet,extended release vitamin B complex (B 1 tablet PO DAILY 11/06/20 11/14/23 Complex-Vitamin B12 tablet) prednisolone acetate 1 % eye 1 drp RIGHT EYE DAILY 06/03/21 11/14/23 drops,suspension (Pred Forte) sodium chloride 5 % eye drops 1 drp EACH EYE QID PRN Dry Eye(S) 06/03/21 11/14/23 (Lillian 128) FreeStyle Lite Strips 10/07/23 11/14/23 blood-glucose meter (FreeStyle 10/07/23 11/14/23 Lite Meter kit) pantoprazole 40 mg tablet,delayed 40 mg PO DAILY 10/07/23 11/14/23 release sitagliptin phosphate 25 mg tablet 25 mg PO DAILY 10/07/23 11/14/23 (Januvia) <Cynthia Perez PA-C - Last Filed: 11/14/23 15:26> Allergies/Adverse reactions: Allergies Allergy/AdvReac Type Severity Reaction Status Date / Time bupropion [From Wellbutrin] Allergy Intermediate seizures Verified 11/08/23 07:26 esomeprazole [From Nexium] Allergy Intermediate hives on Verified 11/08/23 07:26 abdominal area Penicillins Allergy Intermediate itchy Verified 11/08/23 07:26 hands and feet Sulfa (Sulfonamide Allergy Intermediate swollen Verified 11/08/23 07:26 Antibiotics) lips Corticosteroids AdvReac Intermediate manic Verified 11/08/23 07:26 (Glucocorticoids) alfalfa AdvReac Vomiting Verified 11/08/23 07:26 <ADAM Kline Last Filed: 11/14/23 15:26> Review of Systems Review of Systems: All systems reviewed & are unremarkable except as noted in HPI. <Cynthia Perez PA-C - Last Filed: 11/14/23 15:26> All systems reviewed & are unremarkable except as noted in HPI and below <Cynthia Perez PA-C - Last Filed: 11/14/23 15:26> FOR[facility]LY [facility] Past Medical History Medical History: Medical History (Updated 11/14/23 @ 13:31 by Kesha Ceballos PA-C) Asthma Benign essential HTN Bipolar disorder Cancer of left breast Status post lumpectomy and radiation. Chronic anticoagulation Chronic fatigue Chronic insomnia Diabetes mellitus Diastolic dysfunction Endometrial cancer Fibromyalgia Glaucoma Goiter Morbid obesity Osteoarthritis Panic anxiety syndrome Persistent atrial fibrillation Restless leg syndrome <Cynthia Perez PA-C - Last Filed
[2023-11-14 10:20] LABS: Alanine Aminotransferase 11 U/L (6-35); Albumin Level 3.6 g/dL (3.5-5.1); Alkaline Phosphatase 104 U/L (38-126); Anion Gap 11 mmol/L (4-12); Aspartate Amino Transferase 33 U/L (14-36); Blood Urea Nitrogen 8 mg/dL (7-17); Carbon Dioxide 25 mmol/L (22-30); Chloride 98 mmol/L (98-107); Estimated CRCL calculation 84 ml/min; Estimated Glomerular Filt Rate > 60; Glucose 195 mg/dL (65-110); Potassium 3.9 mmol/L (3.4-5.0); Sodium 134 mmol/L (137-145)
[2023-11-14 10:35] LABS: NT Pro B Type Natriuretic Pept 3090 pg/mL (19.9-100)
[2023-11-14] MEDS: FUROSEMIDE INJ 40 MG/4 ML VIAL IV PUSH (11:01)
--- NOTE | 2023-11-14 13:00 | PM.IMHP ---
H&P: HPI History of Present Illness Date/Time: 11/14/23 19:30 Chief Complaint: Weakness. Narrative: This is a 68-year-old female wit atrial fibrillation on chronic anticoagulation, hypertension, diastolic dysfunction, coronary artery disease, type 2 diabetes mellitus, bipolar disorder, depression, anxiety, and history of breast and uterine cancer who presented to the emergency department via EMS from [facility] for evaluation of weakness. The patient provides the following history. At baseline she uses a wheelchair for mobility but can stand and transfer on her own. Today she had difficulties getting herself out of bed and was unable to stand to transfer to the wheelchair. She alerted nursing staff and they came to evaluate her at which time she was sent to the ER for further evaluation as she was very weak and seemed to be a bit confused. At the time my evaluation she does not have any specific complaints aside from mild dysuria and constipation. In fact she reports that she was in the ER 10 days ago with constipation and had to be manually disimpacted. She denies fever, chills, sweats, headache, neck ache, congestion, cough, vertigo, focal weakness, paresthesias, facial droop, difficulty speaking and swallowing, chest pain, pleuritic pain, shortness of breath, nausea, vomiting, diarrhea, dysuria, orthopnea, paroxysmal nocturnal dyspnea, calf pain, and wounds. In the ED: She was afebrile on arrival with stable blood pressures. Labs were significant for a WBC count of 11.1, hemoglobin 11.1, sodium 134, glucose 195, proBNP 3090. Urinalysis was positive for 3+ leukocyte esterase, 3 to 5 RBC, greater than 100 WBC, and rare bacteria. Head CT showed no acute intracranial findings. Chest x-ray revealed cardiomegaly. She received ceftriaxone 1 g and furosemide 40 mg and is being admitted in this setting for further treatment and evaluation. Review of Systems Review of Systems: 12 systems were reviewed and are negative except for as per HPI. [facility] Past Medical History Medical History (Updated 11/14/23 @ 22:14 by Kesha Ceballos PA-C) Asthma Benign essential HTN Bipolar disorder Cancer of left breast Status post lumpectomy and radiation. Chronic anticoagulation Chronic fatigue Chronic insomnia Diastolic dysfunction Endometrial cancer Fibromyalgia Glaucoma Goiter Morbid obesity Osteoarthritis Panic anxiety syndrome Persistent atrial fibrillation Restless leg syndrome Type 2 diabetes mellitus Surgical History Surgical History History of appendectomy History of cardiac radiofrequency ablation History of cholecystectomy History of lumpectomy of left breast History of tonsillectomy History of total hysterectomy with bilateral salpingo-oophorectomy (BSO) Family History Family History Other Cerebrovascular accident Dementia Diabetes mellitus Fibromyalgia Heart disease Hypertension Social History Social History (Updated 11/14/23 @ 13:11 by Kesha Ceballos PA-C) Social History: Surrogate decision maker: Evin Bartlett, son. Code status: Full code. Smoking status: Never smoker Second hand tobacco smoke exposure: Yes Alcohol intake: never Substance use: former Substance use type: marijuana Other substance usage details: Gummies taken for pain. Do You Feel Safe in your Home?: Yes Lack of Transportation: No Lack of Food: Never True Current Housing: I Have Housing Concerned About Future Housing: No Difficulty Paying Gas/Electric Bills: No Difficulty Paying for Meds: No Currently Unemployed: No Education: Trade/Vocational Certificate Difficulty w/ Childcare or Family Care: No Living arrangements: assisted living Additional living arrangements comments: The patient is and lives in [place] with her cat, Ganeshn. She has one son. Occupation/Education: retired
[2023-11-14 13:41] LABS: Influenza A QL RT-PCR Negative (Negative); Influenza B QL RT-PCR Negative (Negative); RSV RNA, RT-PCR Negative (Negative); SARS-CoV-2 RNA PCR Negative (Negative)
[2023-11-14] MEDS: ACETAMINOPHEN 325 MG TABLET 650 MG PO ×2 (14:24→20:35)
[2023-11-14 17:08] LABS: Glucose Point of Care 143 mg/dl (65-105)
[2023-11-14] MEDS: PREGABALIN (*CRX) 25 MG CAPSULE PO ×2 (17:27→20:35)
[2023-11-14] MEDS: METOPROLOL TARTRATE 25 MG TABLET PO (20:35)
[2023-11-14] MEDS: rOPINIRole HCL 0.5 MG TABLET PO (20:35)
[2023-11-14] MEDS: APIXABAN 5 MG TABLET PO (20:35)
[2023-11-14 22:52] LABS: Lactic Acid Reflex 1.3 mmol/L (0.7-2.0)
[2023-11-15 04:18] LABS: Glucose Point of Care 209 mg/dl (65-105)
[2023-11-15] MEDS: PREGABALIN (*CRX) 25 MG CAPSULE PO ×3 (05:36→21:08)
[2023-11-15 06:00] VITALS: BP 148/88; PULSE 95; RESP 20; TEMP 36.4; O2SAT 94
[2023-11-15 07:08] LABS: Basophils Absolute Auto 0.1 K/mm3 (0.0-0.1); Basophils Percent Auto 0.5 % (0.2-1.2); Eosinophils Absolute Auto 0.1 K/mm3 (0-0.3); Eosinophils Percent Auto 0.6 % (0-4.4); Hematocrit 35.8 % (37.0-47.0); Hemoglobin 11.5 g/dL (12.0-15.0); Immature Granulocyte Absolute 0.06 K/mm3 (0.00-0.031); Immature Granulocyte Percent A 0.6 % (0-0.5); Lymphocytes Absolute Auto 0.91 K/mm3 (0.9-3.2); Lymphocytes Percent Auto 8.4 % (18.3-44.2); Mean Corpuscular HGB Conc 32.1 g/dl (32-36); Mean Corpuscular Hemoglobin 31.2 pg (26-34); Mean Platelet Volume 9.5 fl (7.4-10.4); Monocytes Percent Auto 8.8 % (2.6-8.5); Neutrophils Absolute Auto 8.8 K/mm3 (1.3-6.7); Neutrophils Percent Auto 81.1 % (45.5-73.1); Platelet Count Result 352 k/mm3 (150-375); Red Blood Count 3.69 M/mm3 (4.2-5.4); Red Cell Distribution Width 13.7 % (11.5-14.5); White Blood Count 10.9 K/mm3 (4.5-10.0)
[2023-11-15 07:28] LABS: Alanine Aminotransferase 9 U/L (6-35); Albumin Level 3.5 g/dL (3.5-5.1); Alkaline Phosphatase 91 U/L (38-126); Anion Gap 9 mmol/L (4-12); Aspartate Amino Transferase 18 U/L (14-36); Bilirubin,Total 0.8 mg/dL (0.2-1.3); Blood Urea Nitrogen 8 mg/dL (7-17); Calcium 8.8 mg/dL (8.4-10.2); Carbon Dioxide 30 mmol/L (22-30); Chloride 93 mmol/L (98-107); Estimated CRCL calculation 96 ml/min; Estimated Glomerular Filt Rate > 60; Glucose 189 mg/dL (65-110); Potassium 3.7 mmol/L (3.4-5.0); Sodium 132 mmol/L (137-145)
[2023-11-15 07:52] LABS: Glucose Point of Care 179 mg/dl (65-105)
[2023-11-15] MEDS: SODIUM CHLORIDE 5% OP SOLN 15 ML BTL 1 DROP EACH EYE (09:06)
[2023-11-15] MEDS: prednisoLONE ACETATE 1% OPHTH 5 ML 1 DROP RIGHT EYE (09:06)
[2023-11-15] MEDS: PANTOPRAZOLE 40 MG TABLET PO (09:06)
[2023-11-15] MEDS: VITAMIN B COMPLEX CAPSULE 1 CAP PO (09:07)
[2023-11-15] MEDS: ACETAMINOPHEN 325 MG TABLET 650 MG PO ×2 (09:07→13:20)
[2023-11-15] MEDS: METOPROLOL TARTRATE 25 MG TABLET PO ×2 (09:07→21:08)
[2023-11-15] MEDS: MIRTAZAPINE 30 MG TABLET PO (09:07)
[2023-11-15] MEDS: SITagliptin PHOSPHATE 25 MG TABLET PO (09:07)
[2023-11-15] MEDS: APIXABAN 5 MG TABLET PO ×2 (09:07→21:08)
--- NOTE | 2023-11-15 09:40 | PM.IMPN ---
Progress Note: A&P Assessment and Plan (1) Urinary tract infection: Code(s): N39.0 - Urinary tract infection, site not specified Status: Acute (2) Generalized weakness: Code(s): R53.1 - Weakness Status: Acute (3) Cardiomegaly: Code(s): I51.7 - Cardiomegaly Status: Acute (4) Atrial fibrillation: Qualifiers: Atrial fibrillation type: unspecified Qualified Code(s): I48.91 - Unspecified atrial fibrillation Code(s): I48.91 - Unspecified atrial fibrillation Status: Acute (5) Chronic anticoagulation: Code(s): Z79.01 - intermediate manager (current) use of anticoagulants Status: Acute (6) Type 2 diabetes mellitus: Code(s): E11.9 - Type 2 diabetes mellitus without complications Status: Acute Plan The patient presented to the emergency department for evaluation of weakness as detailed in HPI. Labs, imaging, EKG, and all reports were personally reviewed. At the time my evaluation her temperature is 103? F and she has quite a bit of tenderness on palpation of the abdomen and is being sent for a CT scan. Urinalysis is concerning for UTI and with complaints of dysuria she has been started on ceftriaxone, pending urine culture. Weakness is likely due to underlying infection and she will need PT once she is feeling better. Chest x-ray shows cardiomegaly in her proBNP is elevated from baseline. She received a dose of IV furosemide in the ED for mild lower extremity edema. Hold on further diuresis at this time. - Echocardiogram ordered. She is in atrial fibrillation is rate controlled. -Continue apixaban for stroke prophylaxis. Initiate sliding scale insulin, Accu-Cheks, and hypoglycemic protocol. Time Spent With Patient Time with patient: Greater than 35 minutes Subjective Date/time seen: 11/15/23 09:40 Interval history: Narrative retreievd from H/P : This is a 68-year-old female wit atrial fibrillation on chronic anticoagulation, hypertension, diastolic dysfunction, coronary artery disease, type 2 diabetes mellitus, bipolar disorder, depression, anxiety, and history of breast and uterine cancer who presented to the emergency department via EMS from [facility] for evaluation of weakness. The patient provides the following history. At baseline she uses a wheelchair for mobility but can stand and transfer on her own. Today she had difficulties getting herself out of bed and was unable to stand to transfer to the wheelchair. She alerted nursing staff and they came to evaluate her at which time she was sent to the ER for further evaluation as she was very weak and seemed to be a bit confused. At the time my evaluation she does not have any specific complaints aside from mild dysuria and constipation. In fact she reports that she was in the ER 10 days ago with constipation and had to be manually disimpacted. She denies fever, chills, sweats, headache, neck ache, congestion, cough, vertigo, focal weakness, paresthesias, facial droop, difficulty speaking and swallowing, chest pain, pleuritic pain, shortness of breath, nausea, vomiting, diarrhea, dysuria, orthopnea, paroxysmal nocturnal dyspnea, calf pain, and wounds. In the ED: She was afebrile on arrival with stable blood pressures. Labs were significant for a WBC count of 11.1, hemoglobin 11.1, sodium 134, glucose 195, proBNP 3090. Urinalysis was positive for 3+ leukocyte esterase, 3 to 5 RBC, greater than 100 WBC, and rare bacteria. Head CT showed no acute intracranial findings. Chest x-ray revealed cardiomegaly. She received ceftriaxone 1 g and furosemide 40 mg and is being admitted in this setting for further treatment and evaluation. 11/14- pt is seen and examined. She is very emotional, tearful. Wants to make sure we have restarted her lyrica and she is taking her miralax. Review of Systems Review of Systems: 12 systems were reviewed and are negative except for as per HPI. Exam Narrative: General: Elderly fem
--- NOTE | 2023-11-15 11:13 | PCPTNOTE ---
Attempted PT evaluation; pt refused reporting I can't my legs hurt. Pt requests for PT evaluation later.
[2023-11-15 11:29] LABS: Glucose Point of Care 223 mg/dl (65-105)
[2023-11-15] MEDS: INSULIN ASPART (*BKC) 100 UNITS/ML SUB-Q ×3 (11:31→21:03)
[2023-11-15 14:00] VITALS: BP 142/80; PULSE 86; RESP 19; TEMP 36.3; O2SAT 95
[2023-11-15] MEDS: polyethylene glycoL 3350 17 GM POWD.PACK PO (14:13)
[2023-11-15 16:37] LABS: Glucose Point of Care 205 mg/dl (65-105)
[2023-11-15 20:38] LABS: Glucose Point of Care 208 mg/dl (65-105)
[2023-11-15 20:58] VITALS: BP 139/73; PULSE 95; RESP 20; TEMP 36.4; O2SAT 96
[2023-11-15] MEDS: rOPINIRole HCL 0.5 MG TABLET PO (21:08)
[2023-11-16] VITALS (9 sets, daily range): BP systolic 131–139; BP diastolic 55–66; PULSE 95–104; RESP 18–20; TEMP 36.8–38.1; O2SAT 95–97
[2023-11-16] MEDS: PREGABALIN (*CRX) 25 MG CAPSULE PO ×3 (05:29→21:15)
[2023-11-16 07:52] LABS: Glucose Point of Care 217 mg/dl (65-105)
[2023-11-16] MEDS: INSULIN ASPART (*BKC) 100 UNITS/ML SUB-Q ×2 (08:48→11:52)
[2023-11-16] MEDS: polyethylene glycoL 3350 17 GM POWD.PACK PO (08:49)
[2023-11-16] MEDS: PANTOPRAZOLE 40 MG TABLET PO (08:49)
[2023-11-16] MEDS: APIXABAN 5 MG TABLET PO ×2 (08:49→21:15)
[2023-11-16] MEDS: MIRTAZAPINE 30 MG TABLET PO (08:49)
[2023-11-16] MEDS: METOPROLOL TARTRATE 25 MG TABLET PO ×2 (08:49→21:15)
[2023-11-16] MEDS: VITAMIN B COMPLEX CAPSULE 1 CAP PO (08:49)
[2023-11-16] MEDS: SITagliptin PHOSPHATE 25 MG TABLET PO (08:51)
[2023-11-16] MEDS: prednisoLONE ACETATE 1% OPHTH 5 ML 1 DROP RIGHT EYE (08:58)
[2023-11-16] MEDS: ACETAMINOPHEN 325 MG TABLET 650 MG PO ×3 (09:07→21:16)
[2023-11-16 11:41] LABS: Glucose Point of Care 211 mg/dl (65-105)
--- NOTE | 2023-11-16 12:45 | PM.IMPN ---
Progress Note: A&P Assessment and Plan (1) Urinary tract infection: Code(s): N39.0 - Urinary tract infection, site not specified Status: Acute Assessment and Plan: The patient presented to the emergency department for evaluation of weakness as detailed in HPI. Labs, imaging, EKG, and all reports were personally reviewed. At the time my evaluation her temperature is 103? F and she has quite a bit of tenderness on palpation of the abdomen and is being sent for a CT scan. Urinalysis is concerning for UTI and with complaints of dysuria she has been started on ceftriaxone, UC positive for gram neg bacilii continue current IV regime (2) Generalized weakness: Code(s): R53.1 - Weakness Status: Acute Assessment and Plan: PT/ OT ordered for deconditioned state (3) Cardiomegaly: Code(s): I51.7 - Cardiomegaly Status: Acute Assessment and Plan: chronic and stable continue home meds (4) Atrial fibrillation: Qualifiers: Atrial fibrillation type: unspecified Qualified Code(s): I48.91 - Unspecified atrial fibrillation Code(s): I48.91 - Unspecified atrial fibrillation Status: Acute Assessment and Plan: chronic and stable continue home meds (5) Chronic anticoagulation: Code(s): Z79.01 - [facility] (current) use of anticoagulants Status: Acute Assessment and Plan: chronic and stable continue home meds (6) Type 2 diabetes mellitus: Code(s): E11.9 - Type 2 diabetes mellitus without complications Status: Acute Assessment and Plan: chronic and stable continue home meds Subjective Date/time seen: 11/16/23 12:45 Interval history: Interval history _ In the ED: She was afebrile on arrival with stable blood pressures. Labs were significant for a WBC count of 11.1, hemoglobin 11.1, sodium 134, glucose 195, proBNP 3090. Urinalysis was positive for 3+ leukocyte esterase, 3 to 5 RBC, greater than 100 WBC, and rare bacteria. Head CT showed no acute intracranial findings. Chest x-ray revealed cardiomegaly. She received ceftriaxone 1 g and furosemide 40 mg and is being admitted in this setting for further treatment and evaluation. 11/14- pt is seen and examined. She is very emotional, tearful. Wants to make sure we have restarted her lyrica and she is taking her miralax. 11/15- pt is being treated for UTI UC is positive for gram neg bacilli pt is on iv rocephin pt feels better still weak on transferring, plan continue PT today and DC alexx back to [facility] Review of Systems Review of Systems: Weak and tired Exam Narrative: General: Elderly female chronically ill and elderly lady Respiratory: Lungs are clear to auscultation bilaterally. Cardiovascular: controlled AF Gastrointestinal: Abdomen is soft and obese with positive bowel sounds. TTP over suprapubic area Skin: Hot and dry. Extremities: No cyanosis or clubbing. Ankle edema bilaterally peer Radial and pedal pulses intact. Neurological: Alert and oriented. Cranial nerves 2-12 are grossly intact. Generalized weakness without focal findings. Objective Data Vital Signs Vital Signs: Vital Signs - 24 hr 11/15/23 14:00 11/15/23 15:08 11/15/23 20:58 Temperature 36.3 C L 36.4 C Pulse Rate 86 95 Respiratory Rate 19 20 Blood Pressure 142/80 H 139/73 Pulse Oximetry 95 96 Oxygen Delivery Room Air 11/15/23 20:00 11/16/23 00:00 11/16/23 01:00 Temperature 38.1 C H 37.1 C Pulse Rate Respiratory Rate Blood Pressure Pulse Oximetry Oxygen Delivery Room Air 11/16/23 06:00 11/16/23 08:49 11/16/23 08:00 Temperature 37.2 C Pulse Rate 95 96 Respiratory Rate 18 Blood Pressure 139/63 Pulse Oximetry 97 Oxygen Delivery Room Air Intake/Output Intake/Output: Intake & Output 11/13/23 11/14/23 11/15/23 11/16/23 23:59 23:59 23:59 23:59 Intake Total 50 2030 560 Output Total 100 2400 1300 Balance -50
[2023-11-16 16:55] LABS: Glucose Point of Care 192 mg/dl (65-105)
[2023-11-16] MEDS: rOPINIRole HCL 0.5 MG TABLET PO (21:15)
--- NOTE | 2023-11-16 21:47 | PM.EVENT ---
Event Note Event Note Event Note: I was called by RN stating that patient again had fever tonight. Ordered stat labs and reviewed records. CT scan obtained earlier in the day indicates findings of right pyelonephritis. Rocephin had been discontinued and plans to start cefdinir tomorrow morning but due to ongoing fevers and imaging consistent with pyelonephritis, ordered Rocephin 2 gram IV Q24H and stopped cefdinir which does not have good enough renal penetration for adequate coverage of pyelonephritis. Recommend day team discuss with ID Pharmacist for further recommendations.
[2023-11-16 22:18] LABS: Basophils Absolute Auto 0.1 K/mm3 (0.0-0.1); Basophils Percent Auto 0.5 % (0.2-1.2); Eosinophils Absolute Auto 0.2 K/mm3 (0-0.3); Hematocrit 33.3 % (37.0-47.0); Hemoglobin 10.7 g/dL (12.0-15.0); Immature Granulocyte Absolute 0.08 K/mm3 (0.00-0.031); Immature Granulocyte Percent A 0.7 % (0-0.5); Lymphocytes Absolute Auto 1.27 K/mm3 (0.9-3.2); Lymphocytes Percent Auto 11.7 % (18.3-44.2); Mean Corpuscular HGB Conc 32.1 g/dl (32-36); Mean Corpuscular Hemoglobin 31.6 pg (26-34); Mean Corpuscular Volume 98.2 fl (80-100); Mean Platelet Volume 9.5 fl (7.4-10.4); Monocytes Absolute Auto 1.1 K/mm3 (0.1-0.6); Monocytes Percent Auto 10.1 % (2.6-8.5); Neutrophils Absolute Auto 8.1 K/mm3 (1.3-6.7); Platelet Count Result 366 k/mm3 (150-375); Red Blood Count 3.39 M/mm3 (4.2-5.4); Red Cell Distribution Width 13.8 % (11.5-14.5); White Blood Count 10.8 K/mm3 (4.5-10.0)
[2023-11-16] MEDS: cefTRIAXone 2 GM/NS 100 ML 2 GM/100 ML BAG IVPB (22:23)
[2023-11-16 22:32] LABS: Alanine Aminotransferase 16 U/L (6-35); Albumin Level 3.5 g/dL (3.5-5.1); Alkaline Phosphatase 102 U/L (38-126); Anion Gap 9 mmol/L (4-12); Aspartate Amino Transferase 31 U/L (14-36); Bilirubin,Total 0.5 mg/dL (0.2-1.3); Blood Urea Nitrogen 14 mg/dL (7-17); Calcium 8.6 mg/dL (8.4-10.2); Carbon Dioxide 27 mmol/L (22-30); Chloride 96 mmol/L (98-107); Estimated CRCL calculation 84 ml/min; Estimated Glomerular Filt Rate > 60; Glucose 174 mg/dL (65-110); Potassium 4.3 mmol/L (3.4-5.0); Sodium 132 mmol/L (137-145)
[2023-11-17] VITALS (8 sets, daily range): BP systolic 131–150; BP diastolic 57–69; PULSE 84–100; RESP 14–20; TEMP 36.6–37.4; O2SAT 90–99
[2023-11-17] MEDS: PREGABALIN (*CRX) 25 MG CAPSULE PO ×3 (05:19→21:03)
[2023-11-17 07:49] LABS: Glucose Point of Care 224 mg/dl (65-105)
[2023-11-17] MEDS: INSULIN ASPART (*BKC) 100 UNITS/ML SUB-Q ×4 (08:36→20:20)
[2023-11-17] MEDS: PANTOPRAZOLE 40 MG TABLET PO (08:39)
[2023-11-17] MEDS: SITagliptin PHOSPHATE 25 MG TABLET PO (08:39)
[2023-11-17] MEDS: APIXABAN 5 MG TABLET PO ×2 (08:39→20:19)
[2023-11-17] MEDS: MIRTAZAPINE 30 MG TABLET PO (08:39)
[2023-11-17] MEDS: polyethylene glycoL 3350 17 GM POWD.PACK PO (08:39)
[2023-11-17] MEDS: ACETAMINOPHEN 325 MG TABLET 650 MG PO ×2 (08:39→21:22)
[2023-11-17] MEDS: VITAMIN B COMPLEX CAPSULE 1 CAP PO (08:39)
[2023-11-17] MEDS: METOPROLOL TARTRATE 25 MG TABLET PO ×2 (08:39→20:19)
[2023-11-17 11:50] LABS: Glucose Point of Care 301 mg/dl (65-105)
[2023-11-17] MEDS: prednisoLONE ACETATE 1% OPHTH 5 ML 1 DROP RIGHT EYE (12:15)
[2023-11-17] MEDS: ALPRAZolam (*CRX) 0.25 MG TABLET PO (12:20)
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
[2023-11-17 15:09] LABS: Hemoglobin 11.7 g/dL (12.0-15.0); Mean Corpuscular HGB Conc 32.5 g/dl (32-36); Mean Corpuscular Hemoglobin 31.6 pg (26-34); Mean Corpuscular Volume 97.3 fl (80-100); Mean Platelet Volume 9.5 fl (7.4-10.4); Platelet Count Result 390 k/mm3 (150-375); Red Cell Distribution Width 13.5 % (11.5-14.5); White Blood Count 11.8 K/mm3 (4.5-10.0)
[2023-11-17 15:19] LABS: Anion Gap 8 mmol/L (4-12); Blood Urea Nitrogen 15 mg/dL (7-17); Carbon Dioxide 30 mmol/L (22-30); Chloride 95 mmol/L (98-107); Estimated CRCL calculation 84 ml/min; Estimated Glomerular Filt Rate > 60; Glucose 262 mg/dL (65-110); Potassium 4.3 mmol/L (3.4-5.0); Sodium 133 mmol/L (137-145)
[2023-11-17 16:45] LABS: Glucose Point of Care 218 mg/dl (65-105)
[2023-11-17 20:05] LABS: Glucose Point of Care 277 mg/dl (65-105)
[2023-11-17] MEDS: rOPINIRole HCL 0.5 MG TABLET PO (20:19)
[2023-11-17] MEDS: cefTRIAXone 2 GM/NS 100 ML 2 GM/100 ML BAG IVPB (21:03)
[2023-11-18] VITALS (11 sets, daily range): BP systolic 107–155; BP diastolic 58–69; PULSE 70–106; RESP 14–16; TEMP 36.4–38.1; O2SAT 90–98
[2023-11-18] MEDS: PREGABALIN (*CRX) 25 MG CAPSULE PO ×3 (05:14→20:18)
[2023-11-18 07:57] LABS: Glucose Point of Care 221 mg/dl (65-105)
[2023-11-18] MEDS: PANTOPRAZOLE 40 MG TABLET PO (09:15)
[2023-11-18] MEDS: polyethylene glycoL 3350 17 GM POWD.PACK PO (09:15)
[2023-11-18] MEDS: SITagliptin PHOSPHATE 25 MG TABLET PO (09:15)
[2023-11-18] MEDS: APIXABAN 5 MG TABLET PO ×2 (09:15→20:11)
[2023-11-18] MEDS: VITAMIN B COMPLEX CAPSULE 1 CAP PO (09:15)
[2023-11-18] MEDS: METOPROLOL TARTRATE 25 MG TABLET PO ×2 (09:16→20:11)
[2023-11-18] MEDS: prednisoLONE ACETATE 1% OPHTH 5 ML 1 DROP RIGHT EYE (09:16)
[2023-11-18] MEDS: MIRTAZAPINE 30 MG TABLET PO (09:16)
[2023-11-18] MEDS: INSULIN ASPART (*BKC) 100 UNITS/ML SUB-Q ×3 (09:17→20:13)
[2023-11-18 11:52] LABS: Glucose Point of Care 172 mg/dl (65-105)
[2023-11-18 17:02] LABS: Glucose Point of Care 247 mg/dl (65-105)
[2023-11-18] MEDS: ACETAMINOPHEN 325 MG TABLET 650 MG PO (17:57)
--- NOTE | 2023-11-18 18:23 | PM.IMPN ---
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 At baseline she uses a wheelchair for mobility but can stand and transfer on her own. On admission she had difficulties getting herself out of bed and was unable to stand to transfer to the wheelchair. She alerted nursing staff and they came to evaluate her at which time she was sent to the ER for further evaluation as she was very weak and seemed to be a bit confused. She reported mild dysuria and constipation. In fact she reports that she was in the ER 10 days ago with constipation and had to be manually disimpacted. She denies fever, chills, sweats, headache, neck ache, congestion, cough, vertigo, focal weakness, paresthesias, facial droop, difficulty speaking and swallowing, chest pain, pleuritic pain, shortness of breath, nausea, vomiting, diarrhea, dysuria, orthopnea, paroxysmal nocturnal dyspnea, calf pain, and wounds. In the ED: She was afebrile on arrival with stable blood pressures. Labs were significant for a WBC count of 11.1, hemoglobin 11.1, sodium 134, glucose 195, proBNP 3090. Urinalysis was positive for 3+ leukocyte esterase, 3 to 5 RBC, greater than 100 WBC, and rare bacteria. Head CT showed no acute intracranial findings. Chest x-ray revealed cardiomegaly. She received ceftriaxone 1 g and furosemide 40 mg and is being admitted in this setting for further treatment and evaluation. Continued to have fever spike and hence CT abdomen pelvis was ordered which showed right renal finding concerning for pyelonephritis with findings of cystitis stable left iliac and pelvic lymphadenopathy. Urine culture on admission grew E coli sensitive to ceftriaxone. Blood culture x2 is negative to date. Atrial fibrillation on chronic anticoagulation Hypertension Diastolic dysfunction Coronary artery disease Type 2 diabetes Bipolar disorder Depression anxiety History of breast and uterine cancer DVT prophylaxis on apixaban Code status full code Subjective Date/time seen: 11/18/23 18:23 Interval history: Patient on and off tearful. States hurts everywhere. No other complaints. Still spiking fever Review of Systems Review of Systems: All systems reviewed & are unremarkable except as noted in HPI and below Exam Narrative: General: Elderly female chronically ill and elderly lady not in acute distress emotional Respiratory: Lungs are clear to auscultation bilaterally. No respiratory distress Cardiovascular: controlled AF Gastrointestinal: Abdomen is soft and obese with positive bowel sounds. Skin: Hot and dry. Extremities: No cyanosis or clubbing. Ankle edema bilaterally peer Radial and pedal pulses intact. Neurological: Alert and oriented. Cranial nerves 2-12 are grossly intact. Generalized weakness without focal findings. Objective Data Vital Signs Vital Signs: Vital Signs - 24 hr 11/17/23 20:19 11/17/23 20:59 11/17/23 21:22 Temperature 99.3 F 99.3 F Pulse Rate 84 98 Respiratory Rate 18 Blood Press
[2023-11-18] MEDS: rOPINIRole HCL 0.5 MG TABLET PO (20:11)
[2023-11-18] MEDS: HYDROcodone/acetaminophen (*CRX) 5-325 MG TABLET 1 TAB PO (20:20)
[2023-11-18] MEDS: cefTRIAXone 2 GM/NS 100 ML 2 GM/100 ML BAG IVPB (20:23)
[2023-11-18 21:40] LABS: Glucose Point of Care 244 mg/dl (65-105)
[2023-11-19] MEDS: PREGABALIN (*CRX) 25 MG CAPSULE PO ×2 (05:31→21:08)
[2023-11-19 06:00] VITALS: BP 122/69; PULSE 80; RESP 18; TEMP 36.1; O2SAT 99
[2023-11-19 07:12] LABS: Basophils Absolute Auto 0.1 K/mm3 (0.0-0.1); Basophils Percent Auto 0.9 % (0.2-1.2); Eosinophils Absolute Auto 0.3 K/mm3 (0-0.3); Eosinophils Percent Auto 3.2 % (0-4.4); Hematocrit 31.5 % (37.0-47.0); Hemoglobin 10.1 g/dL (12.0-15.0); Immature Granulocyte Absolute 0.05 K/mm3 (0.00-0.031); Immature Granulocyte Percent A 0.6 % (0-0.5); Lymphocytes Absolute Auto 0.67 K/mm3 (0.9-3.2); Lymphocytes Percent Auto 8.5 % (18.3-44.2); Mean Corpuscular HGB Conc 32.1 g/dl (32-36); Mean Corpuscular Hemoglobin 31.2 pg (26-34); Mean Corpuscular Volume 97.2 fl (80-100); Mean Platelet Volume 9.9 fl (7.4-10.4); Monocytes Absolute Auto 0.8 K/mm3 (0.1-0.6); Monocytes Percent Auto 9.9 % (2.6-8.5); Neutrophils Percent Auto 76.9 % (45.5-73.1); Platelet Count Result 333 k/mm3 (150-375); Red Blood Count 3.24 M/mm3 (4.2-5.4); Red Cell Distribution Width 13.6 % (11.5-14.5); White Blood Count 7.8 K/mm3 (4.5-10.0)
[2023-11-19 07:20] LABS: Alanine Aminotransferase 34 U/L (6-35); Albumin Level 3.1 g/dL (3.5-5.1); Alkaline Phosphatase 99 U/L (38-126); Anion Gap 6 mmol/L (4-12); Aspartate Amino Transferase 49 U/L (14-36); Bilirubin,Total 0.5 mg/dL (0.2-1.3); Blood Urea Nitrogen 13 mg/dL (7-17); Calcium 8.8 mg/dL (8.4-10.2); Carbon Dioxide 30 mmol/L (22-30); Chloride 98 mmol/L (98-107); Estimated CRCL calculation 84 ml/min; Estimated Glomerular Filt Rate > 60; Glucose 215 mg/dL (65-110); Magnesium 1.8 mg/dL (1.6-2.3); Potassium 4.2 mmol/L (3.4-5.0); Sodium 134 mmol/L (137-145)
[2023-11-19 07:47] LABS: Glucose Point of Care 205 mg/dl (65-105)
[2023-11-19 08:32] VITALS: PULSE 82
[2023-11-19] MEDS: SITagliptin PHOSPHATE 25 MG TABLET PO (08:32)
[2023-11-19] MEDS: PANTOPRAZOLE 40 MG TABLET PO (08:32)
[2023-11-19] MEDS: APIXABAN 5 MG TABLET PO ×2 (08:32→20:25)
[2023-11-19] MEDS: polyethylene glycoL 3350 17 GM POWD.PACK PO (08:32)
[2023-11-19] MEDS: MIRTAZAPINE 30 MG TABLET PO (08:32)
[2023-11-19] MEDS: METOPROLOL TARTRATE 25 MG TABLET PO ×2 (08:32→20:23)
[2023-11-19] MEDS: VITAMIN B COMPLEX CAPSULE 1 CAP PO (08:32)
[2023-11-19] MEDS: INSULIN ASPART (*BKC) 100 UNITS/ML SUB-Q ×3 (08:33→20:27)
[2023-11-19] MEDS: prednisoLONE ACETATE 1% OPHTH 5 ML 1 DROP RIGHT EYE (08:37)
--- NOTE | 2023-11-19 09:47 | PM.IMPN ---
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 At baseline she uses a wheelchair for mobility but can stand and transfer on her own. On admission she had difficulties getting herself out of bed and was unable to stand to transfer to the wheelchair. She alerted nursing staff and they came to evaluate her at which time she was sent to the ER for further evaluation as she was very weak and seemed to be a bit confused. She reported mild dysuria and constipation. In fact she reports that she was in the ER 10 days ago with constipation and had to be manually disimpacted. She denies fever, chills, sweats, headache, neck ache, congestion, cough, vertigo, focal weakness, paresthesias, facial droop, difficulty speaking and swallowing, chest pain, pleuritic pain, shortness of breath, nausea, vomiting, diarrhea, dysuria, orthopnea, paroxysmal nocturnal dyspnea, calf pain, and wounds. In the ED: She was afebrile on arrival with stable blood pressures. Labs were significant for a WBC count of 11.1, hemoglobin 11.1, sodium 134, glucose 195, proBNP 3090. Urinalysis was positive for 3+ leukocyte esterase, 3 to 5 RBC, greater than 100 WBC, and rare bacteria. Head CT showed no acute intracranial findings. Chest x-ray revealed cardiomegaly. She received ceftriaxone 1 g and furosemide 40 mg and is being admitted in this setting for further treatment and evaluation. Continued to have fever spike and hence CT abdomen pelvis was ordered which showed right renal finding concerning for pyelonephritis with findings of cystitis stable left iliac and pelvic lymphadenopathy. Urine culture on admission grew E coli sensitive to ceftriaxone. Blood culture x2 is negative to date. Patient is still having intermittent fever will get renal ultrasound to look at the area for possible collection Atrial fibrillation on chronic anticoagulation Hypertension Diastolic dysfunction Coronary artery disease Type 2 diabetes Bipolar disorder Depression anxiety History of breast and uterine cancer DVT prophylaxis on apixaban Code status full code Subjective Date/time seen: 11/19/23 09:47 Interval history: Mild spike of fever last evening. Remains afebrile since then. Labs reviewed WBC has normalized. Patient still having intermittent fever. Review of Systems Review of Systems: All systems reviewed & are unremarkable except as noted in HPI and below Exam Narrative: General: Elderly female chronically ill and elderly lady not in acute distress emotional Respiratory: Lungs are clear to auscultation bilaterally. No respiratory distress Cardiovascular: controlled AF Gastrointestinal: Abdomen is soft and obese with positive bowel sounds. Skin: Hot and dry. Extremities: No cyanosis or clubbing. Ankle edema bilaterally peer Radial and pedal pulses intact. Neurological: Alert and oriented. Cranial nerves 2-12 are grossly intact. Generalized weakness without focal findings. Objective Data Vital Signs Vital Signs
[2023-11-19 11:51] LABS: SARS-CoV-2 RNA PCR Negative (Negative)
[2023-11-19 11:53] LABS: Glucose Point of Care 192 mg/dl (65-105)
[2023-11-19 14:00] VITALS: BP 120/72; PULSE 80; RESP 18; TEMP 36.4; O2SAT 98
[2023-11-19] MEDS: HYDROcodone/acetaminophen (*CRX) 5-325 MG TABLET 1 TAB PO (16:25)
[2023-11-19 16:37] LABS: Glucose Point of Care 202 mg/dl (65-105)
[2023-11-19 20:15] LABS: Glucose Point of Care 216 mg/dl (65-105)
[2023-11-19 20:23] VITALS: PULSE 99
[2023-11-19] MEDS: rOPINIRole HCL 0.5 MG TABLET PO (20:25)
[2023-11-19] MEDS: DULoxetine HCL 60 MG CAPSULE.DR PO (20:26)
[2023-11-19] MEDS: cefTRIAXone 2 GM/NS 100 ML 2 GM/100 ML BAG IVPB (21:09)
[2023-11-19 21:11] LABS: Add Urine Microscopic? NO; Appearance Urine Clear (Clear); Bilirubin Urine Negative (Negative); Blood Urine Negative (Negative); Color Urine Yellow (Yellow); Glucose Urine UA Negative (Negative); Ketones Urine Negative (Negative); Leukocyte Esterase Ur Negative LEU/UL (Negative); Nitrate Urine Negative (Negative); Protein Urine Negative (Negative); Specific Grav Ur 1.019 (1.001-1.035)
[2023-11-19 21:31] VITALS: BP 121/67; PULSE 98; RESP 16; TEMP 36.4; O2SAT 95
[2023-11-20] MEDS: ALPRAZolam (*CRX) 0.25 MG TABLET PO (00:38)
[2023-11-20] MEDS: PREGABALIN (*CRX) 25 MG CAPSULE PO (05:14)
[2023-11-20 05:40] VITALS: BP 127/56; PULSE 86; RESP 16; TEMP 36.3; O2SAT 99
[2023-11-20 07:13] LABS: Basophils Absolute Auto 0.1 K/mm3 (0.0-0.1); Basophils Percent Auto 0.9 % (0.2-1.2); Eosinophils Absolute Auto 0.3 K/mm3 (0-0.3); Eosinophils Percent Auto 2.7 % (0-4.4); Hematocrit 34.7 % (37.0-47.0); Hemoglobin 11.1 g/dL (12.0-15.0); Immature Granulocyte Percent A 0.9 % (0-0.5); Lymphocytes Absolute Auto 0.93 K/mm3 (0.9-3.2); Lymphocytes Percent Auto 8.8 % (18.3-44.2); Mean Corpuscular Volume 96.9 fl (80-100); Mean Platelet Volume 9.9 fl (7.4-10.4); Monocytes Absolute Auto 0.9 K/mm3 (0.1-0.6); Monocytes Percent Auto 8.7 % (2.6-8.5); Neutrophils Absolute Auto 8.3 K/mm3 (1.3-6.7); Platelet Count Result 427 k/mm3 (150-375); Red Blood Count 3.58 M/mm3 (4.2-5.4); Red Cell Distribution Width 13.6 % (11.5-14.5); White Blood Count 10.6 K/mm3 (4.5-10.0)
[2023-11-20 07:24] LABS: Alanine Aminotransferase 42 U/L (6-35); Albumin Level 3.6 g/dL (3.5-5.1); Alkaline Phosphatase 127 U/L (38-126); Anion Gap 11 mmol/L (4-12); Aspartate Amino Transferase 53 U/L (14-36); Bilirubin,Total 0.7 mg/dL (0.2-1.3); Blood Urea Nitrogen 12 mg/dL (7-17); Calcium 8.9 mg/dL (8.4-10.2); Carbon Dioxide 25 mmol/L (22-30); Chloride 94 mmol/L (98-107); Estimated CRCL calculation 96 ml/min; Estimated Glomerular Filt Rate > 60; Glucose 232 mg/dL (65-110); Magnesium 1.8 mg/dL (1.6-2.3); Potassium 4.3 mmol/L (3.4-5.0); Sodium 130 mmol/L (137-145)
[2023-11-20 08:34] LABS: Glucose Point of Care 218 mg/dl (65-105)
[2023-11-20 09:25] VITALS: PULSE 86
[2023-11-20] MEDS: prednisoLONE ACETATE 1% OPHTH 5 ML 1 DROP RIGHT EYE (09:25)
[2023-11-20] MEDS: APIXABAN 5 MG TABLET PO (09:25)
[2023-11-20] MEDS: polyethylene glycoL 3350 17 GM POWD.PACK PO (09:25)
[2023-11-20] MEDS: PANTOPRAZOLE 40 MG TABLET PO (09:25)
[2023-11-20] MEDS: MIRTAZAPINE 30 MG TABLET PO (09:25)
[2023-11-20] MEDS: METOPROLOL TARTRATE 25 MG TABLET PO (09:25)
[2023-11-20] MEDS: SITagliptin PHOSPHATE 25 MG TABLET PO (09:25)
[2023-11-20] MEDS: VITAMIN B COMPLEX CAPSULE 1 CAP PO (09:25)
[2023-11-20] MEDS: HYDROcodone/acetaminophen (*CRX) 5-325 MG TABLET 1 TAB PO (09:28)
[2023-11-20] MEDS: INSULIN ASPART (*BKC) 100 UNITS/ML SUB-Q (09:29)
--- NOTE | 2023-11-20 11:29 | PM.DS ---
DS: Admitting Diagnosis Discharge Date 11/20/2023 Admitting Diagnosis Generalized weakness DS: Discharge Diagnosis Discharge Diagnosis (1) Urinary tract infection: Code(s): N39.0 - Urinary tract infection, site not specified Status: Acute (2) Generalized weakness: Code(s): R53.1 - Weakness Status: Acute (3) Cardiomegaly: Code(s): I51.7 - Cardiomegaly Status: Acute (4) Atrial fibrillation: Qualifiers: Atrial fibrillation type: unspecified Qualified Code(s): I48.91 - Unspecified atrial fibrillation Code(s): I48.91 - Unspecified atrial fibrillation Status: Acute (5) Chronic anticoagulation: Code(s): 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 At baseline she uses a wheelchair for mobility but can stand and transfer on her own. On admission she had difficulties getting herself out of bed and was unable to stand to transfer to the wheelchair. She alerted nursing staff and they came to evaluate her at which time she was sent to the ER for further evaluation as she was very weak and seemed to be a bit confused. She reported mild dysuria and constipation. In fact she reports that she was in the ER 10 days ago with constipation and had to be manually disimpacted. She denies fever, chills, sweats, headache, neck ache, congestion, cough, vertigo, focal weakness, paresthesias, facial droop, difficulty speaking and swallowing, chest pain, pleuritic pain, shortness of breath, nausea, vomiting, diarrhea, dysuria, orthopnea, paroxysmal nocturnal dyspnea, calf pain, and wounds. In the ED: She was afebrile on arrival with stable blood pressures. Labs were significant for a WBC count of 11.1, hemoglobin 11.1, sodium 134, glucose 195, proBNP 3090. Urinalysis was positive for 3+ leukocyte esterase, 3 to 5 RBC, greater than 100 WBC, and rare bacteria. Head CT showed no acute intracranial findings. Chest x-ray revealed cardiomegaly. She received ceftriaxone 1 g and furosemide 40 mg and is being admitted in this setting for further treatment and evaluation. Continued to have fever spike and hence CT abdomen pelvis was ordered which showed right renal finding concerning for pyelonephritis with findings of cystitis stable left iliac and pelvic lymphadenopathy. Urine culture on admission grew E coli sensitive to ceftriaxone. Blood culture x2 is negative to date. Patient is still having intermittent fever. Renal ultrasound was performed for follow-up in came back with normal fine. She will be switched to cefpodoxime To complete the course of treatment. Atrial fibrillation on chronic anticoagulation Hypertension Diastolic dysfunction Coronary artery disease Type 2 diabetes on oral hypoglycemic agents which will be continued Bipolar disorder Depression anxiety History of breast and uterine cancer DVT prophylaxis on apixaban Code status full code Time Spent with Patient Time attestation: Total time spent providing and/or coordinating discharge services: 35 minutes Exam Narrative: General: Elderly female chronically ill and elderly lady not in acute distress Respiratory: Lungs are clear to auscultation bilaterally. No respiratory distress Cardiovascular: controlled AF Gastrointestinal: Abdomen is soft and obese with positive bowel sounds. Skin: Hot and dry. Extremities: No cyanosis or clubbing. Ankle edema bilaterally peer Radial and pedal pulses intact. Neurological: Alert and oriented. Cranial nerves 2-12 are grossly intact. Generalized weakness witho
[2023-11-20 11:56] LABS: Glucose Point of Care 206 mg/dl (65-105)
[2023-11-23 08:22] LABS: Glucose Point of Care 166 mg/dl (65-105)
== END 2023-11-20 13:15 | DRG 690 ==
LOC: ANHED 11:06 → ANH3MEDSUR 13:17
PROVIDERS: Family Medicine; Nurse Practitioner; Physician Assistant; Admitting Provider General Practice; Emergency Provider Physician Assistant; PCP Family Medicine; Visit Provider Internal Medicine
DX: N10 Acute pyelonephritis (principal); I48.19 Other persistent atrial fibrillation; N30.90 Cystitis, unspecified without hematuria; B96.20 Unspecified Escherichia coli [E. coli] as the cause of diseases classified elsewhere; E11.9 Type 2 diabetes mellitus without complications; E66.01 Morbid (severe) obesity due to excess calories; F41.9 Anxiety disorder, unspecified; F31.9 Bipolar disorder, unspecified; G25.81 Restless legs syndrome; I11.9 Hypertensive heart disease without heart failure; I25.10 Atherosclerotic heart disease of native coronary artery without angina pectoris; Z85.3 Personal history of malignant neoplasm of breast; Z85.42 Personal history of malignant neoplasm of other parts of uterus; Z88.0 Allergy status to penicillin; Z90.49 Acquired absence of other specified parts of digestive tract; Z79.84 Long term (current) use of oral hypoglycemic drugs; Z79.01 Long term (current) use of anticoagulants; Z68.39 Body mass index [BMI] 39.0-39.9, adult
CPT/HCPCS: 36415; 70450; 71046; 74177; 76775; 80048; 80053; 81001; 81003; 82948; 83605; 83735; 83880; 85025; 85027; 85610; 85730; 87040; 87077; 87086; 87088; 87186; 87635; 87637; 93005; 96365; 96375; 96376; 97110; 97162; 97166; 97530; 97535; 99285; A9270; G0378; J0696; J1815; J1940; Q9967